=== PATIENT | female | born 1990 | race Caucasian/White ===

== ENCOUNTER 2016-11-29 01:48 | Outpatient (CLI) | payer BC ==
[2016-11-29 02:27] LABS: APPEARANCE,URINE SLIGHTLY-CLOUDY; BILIRUBIN,URINE NEGATIVE (NEGATIVE); GLUCOSE, URINE NEGATIVE (NEGATIVE); KETONES,URINE NEGATIVE (NEGATIVE); LEUKOCYTE ESTERASE,URINE NEGATIVE (NEGATIVE); NITRITE,URINE NEGATIVE (NEGATIVE); PROTEIN,URINE NEGATIVE (NEGATIVE); URINE SPECIFIC GRAVITY 1.006; UROBILINOGEN,URINE NEGATIVE mg/dL (<2.0)
[2016-11-29 03:22] LABS: URINE BARBITURATES SCREEN NEGATIVE; URINE METHADONE SCREEN NEGATIVE; URINE OPIATES LOW NEGATIVE; URINE PHENCYCLIDINE SCREEN NEGATIVE
--- NOTE | 2016-11-29 04:45 | L&D Current Admission ---
Current Admit Datetime Report Generated by CPN: 11/29/2016 04:45 ADMISSION INFORMATION Chief Complaint: Uterine Cramping (11/29/2016 02:11:Edelmira Love, RN)
--- NOTE | 2016-11-29 04:45 | L&D Flow Sheet ---
LD Flowsheet Datetime Report Generated by CPN: 11/29/2016 04:45 Datetime: 11/29/2016 03:17 Vital Signs Stage of : Antepartum (Edelmira Love, RN) Respirations: 18 (Edelmira Love, RN) Temperature (F): 98.0 (Edelmira Love, RN) Temperature (C): 36.7 (QS system process) Uterine Activity Monitor Mode: External; Palpation (Edelmira Love, RN) Frequency (min): none (Edelmira Love, RN) Quality: Mild (Edelmira Love, RN) Resting Tone (Palpate): Relaxed (Edelmira Love, RN) Assessment A Monitor Mode: External US (Edelmira Love, RN) FHR Baseline Rate : 140 (Edelmira Love, RN) FHR Baseline Changes: No Baseline Change (Edelmira Love, RN) Variability: Moderate 6-25 bpm (Edelmira Love, RN) Accelerations: 15X15 (Edelmira Love, RN) Decelerations: None (Edelmira Love, RN) Pain Pain Scale: 2 (Edelmira Love, RN) Pain Presence: Intermittent (Edelmira Love, RN) Pain Type: Cramping (Edelmira Love, RN) Pain Location: Abdomen (Edelmira Love, RN) Pain Relief Measures: Comfort Measures (Edelmira Love, RN) Comfort Measures: Breathing/Relaxation; Family Support (Edelmira Love, RN) Communication Communication: RN at Bedside; RN Reviewed Strip (Edelmira Love, RN) LaborFlag: Antepartum (QS system process) Datetime: 11/29/2016 03:04 Communication Communication: Provider Orders Received (Edelmira Love, RN) Communication Comments: report given to Dr Gibson, re: patient pain, contractions, EGA, OB history, and FHR status. Orders received to D/C home, F/U as scheduled, return PRN (Edelmira Love, RN) Datetime: 11/29/2016 03:00 Vital Signs Stage of : Antepartum (Edelmira Love, RN) Uterine Activity Monitor Mode: External; Palpation (Edelmira Love, RN) Frequency (min): none (Edelmira Love, RN) Resting Tone (Palpate): Relaxed (Edelmira Love, RN) Assessment A Monitor Mode: External US (Edelmira Love, RN) Monitor Interventions for FHR: Ultrasound Adjusted (Edelmira Love, RN) FHR Baseline Rate : 140 (Edelmira Love, RN) FHR Baseline Changes: No Baseline Change (Edelmira Love, RN) Variability: Moderate 6-25 bpm (Edelmira Love, RN) Accelerations: 15X15 (Edelmira Love, RN) Decelerations: None (Edelmira Love, RN) Communication Communication: RN at Bedside; RN Reviewed Strip (Edelmira Love, RN) Datetime: 11/29/2016 02:50 NBP Sys/Maria De Jesus/Mean (mmHg): 108 (QS system process) : 68 (QS system process) : 82 (QS system process) Pulse: 105 (QS system process) LaborFlag: Antepartum (QS system process) Datetime: 11/29/2016 02:45 Vital Signs Stage of : Antepartum (Edelmira Love, RN) Uterine Activity Monitor Mode: External; Palpation (Edelmira Love, RN) Frequency (min): x2 with irritability (Edelmira Love, RN) Quality: Mild (Edelmira Love, RN) Duration (sec): 90-130 (Edelmira Love, RN) Pattern: Normal: <= 5 Contractions in 10 Minutes (Edelmira Love, RN) Resting Tone (Palpate): Relaxed (Edelmira Love, RN) Assessment A Monitor Mode: External US (Edelmira Love, RN) FHR Baseline Rate : 140 (Edelmira Love, RN) FHR Baseline Changes: No Baseline Change (Edelmira Love, RN) Variability: Moderate 6-25 bpm (Edelmira Love, RN) Accelerations: 10X10 (Edelmira Love, RN) Decelerations: None (Edelmira Love, RN) Communication Communication: RN at Bedside; RN Reviewed Strip (Edelmira Love, RN) Datetime: 11/29/2016 02:20 Vital Signs Stage of : Antepartum (Edelmira Love, RN) NBP Sys/Maria De Jesus/Mean (mmHg): 112 (QS system process) : 67 (QS system process) : 82 (QS system process) Pulse: 105 (QS system process) Uterine Activity Monitor Mode: External; Palpation (Edelmira Love, RN) Frequency (min): x1 (Edelmira Love, RN) Quality: Mild (Edelmira Love, RN) Duration (sec): 90 (Edelmira Love, RN) Duration Criteria: Less than Two 120 Second Contractions (Edelmira Love, RN) Pattern: Normal: <= 5 Contractions in 10 Minutes (Edelmira Love, RN) Resting Tone (Palpate): Relaxed (Edelmira Love, RN) Assessment A Monitor Mode: External US (Edelmira Love, RN) FHR Baseline Rate : 145 (Edelmira Love, RN) FHR Baseline Changes: No Baseline Change (Edelmira Love, RN) Variability: Minimal - Undetectable to <=5 bpm (Edelmira Love, RN) Accelerations: None (Edelmira Love, RN) Decelerations: Early (Edelmira Love, RN) Communication Communication: RN at Bedside; RN Reviewed Strip (Edelmira Love, RN) LaborFlag: Antepartum (QS system process) Datetime: 11/29/2016 02:11 Pain Pain Scale: 3 (Edelmira Love, RN) Pain Presence: Intermittent (Edelmira Love, RN) Pain Type: Cramping (Edelmira Love, RN) Pain Location: Abdomen (Edelmira Love, RN) Pain Goal: 1 (Edelmira Love, RN) Pain Relief Measures: Comfort Measures (Edelmira Love, RN) Pain Coping: Talking Through Contractions (Edelmira Love, RN) Vaginal Exam Vaginal Bleeding: None (Edelmira Love, RN) Maternal Assessment Level of Consciousness: Fully Conscious (Edelmira Love, RN) DTR's/Clonus: DTRs 1+; No Clonus (Edelmira Love, RN) Headache: Denies (Edelmira Love, RN) Breath Sounds, Left: Clear and Equal (Edelmira Love, RN) Breath Sounds, Right: Clear and Equal (Edelmira Love, RN) Nausea/Vomiting: Denies (Edelmira Love, RN) RUQ Epigastric Pain: Denies (Edelmira Love, RN) Datetime: 11/29/2016 02:07 Patient Care Patient Position/Activity: Left Tilt; High Fowlers (Edelmira Love, ZUHAIR) Teaching Instructional Method: Verbal; Patient Instructed; Family/Support Person Instructed; Verbalized Understanding (Edelmira Love RN) Plan of Care: Plan of Care Discussed (Edelmira Love RN) Unit Routine: [place] to Room; Call Carrillo; Bed; Unit Personnel (Edelmira Love RN)
--- NOTE | 2016-11-29 04:45 | L&D General Admission ---
General Admit Datetime Report Generated by CPN: 11/29/2016 04:45 INFORMATION Patient Age: 26 (10/30/2016 09:43:QS system process) EDC: 01/12/2017 00:00 (11/29/2016 01:52:Sara Collins RN) : 1 (11/29/2016 01:52:Edelmira Love RN) Para: 0 (11/29/2016 03:10:Edelmira Love RN) Para: 0 (11/29/2016 01:52:Edelmira Love RN) Term: 0 (11/29/2016 01:52:Edelmira Love RN) : 0 (11/29/2016 01:52:Edelmira Love RN) Spontaneous Abortions: 0 (11/29/2016 01:52:Edelmira Love RN) Induced Abortions: 0 (11/29/2016 01:52:Edelmira Love RN) Livin (11/29/2016 01:52:Edelmira Love RN) Cesareans: 0 (11/29/2016 01:52:Edelmira Love RN) VBACs: 0 (11/29/2016 01:52:Edelmira Love RN) Ectopic: 0 (11/29/2016 01:52:Edelmira Love RN) Multiple Births: 0 (11/29/2016 01:52:Edelmira Love RN) Baby, Number in Womb: 1 (11/29/2016 03:10:Edelmira Love RN) Baby, Number in Womb: 1 (11/29/2016 01:52:Edelmira Love RN) CARE Primary Director Of Web Marketing: [facility] (11/29/2016 01:52:Edelmira Love RN) Adequate Care: Yes (11/29/2016 01:52:Edelmira Love RN) Height (in): 65 (11/29/2016 01:59:QS system process) ALLERGIES Medication Allergy: No (11/29/2016 01:52:Edelmira Love RN) Medication Allergies: No Known Allergies (11/29/2016) (11/29/2016 01:58:QS system process) Medication Allergies: No Known Allergies (03/03/2016) (10/30/2016 09:43:QS system process) Latex Allergy: No Latex Allergies (11/29/2016 01:52:Edelmira Love RN) Food Allergies: none (11/29/2016 01:52:Edelmira Love RN) Environmental Allergies: none (11/29/2016 01:52:Edelmira Love RN) COMMUNICATION Primary Language: Hungarian (11/29/2016 01:52:Edelmira Love RN) Medical Tx Preferred Language: Hungarian (11/29/2016 01:52:Edelmira Love RN) DEMOGRAPHICS Address: [address] [place] [id number] (10/30/2016 09:43:QS system process) Zipcode: [id number] (10/30/2016 09:43:QS system process) Home (10/30/2016 09:43:QS system process) N: [id number] (10/30/2016 09:43:QS system process) Next of Kin Name: MARVEL HINDS (10/30/2016 09:43:QS system process) Next of Kin (10/30/2016 09:43:QS system process) Next of Kin Relationship: MO (10/30/2016 09:43:QS system process) Date of : 1990 (10/30/2016 09:43:QS system process) Marital Status: (10/30/2016 09:43:QS system process) Sex: Female (10/30/2016 09:43:QS system process) Race: (10/30/2016 09:43:QS system process) Ethnicity: Non- or (10/30/2016 09:43:QS system process) Latter-Day: Other (10/30/2016 09:43:QS system process) DRUG AND ALCOHOL USE Alcohol: No (11/29/2016 01:52:Edelmira Love RN) Cigarettes: Former Smoker. [id number] (11/29/2016 01:52:Edelmira Love RN) Marijuana: No (11/29/2016 01:52:Edelmira Love RN) Cocaine: No (11/29/2016 01:52:Edelmira Love RN) Other Illicit Drugs: No (11/29/2016 01:52:Edelmira Love RN) VACCINE HISTORY Influenza Vaccine: Yes (11/29/2016 01:52:Edelmira Love RN) Pneumococcal Vaccine: No (11/29/2016 01:52:Edelmira Love RN) Tetanus Vaccine: Yes (11/29/2016 01:52:Edelmira Love RN) Tdap Vaccine: Yes (11/29/2016 01:52:Edelmira Love RN) Hepatitis B Vaccine: Yes (11/29/2016 01:52:Edelmira Love RN) Feeding Preference: Breast (11/29/2016 01:52:Edelmira Love RN) Benefit of Breast Feed Discussed: Yes (11/29/2016 01:52:Edelmira Love RN) Circumcision: N/A (11/29/2016 01:52:Edelmira Love RN) Tubal Ligation: No (11/29/2016 01:52:Edelmira Love RN) Tubal Authorization Signed: N/A (11/29/2016 01:52:Edelmira Love RN) Consent: N/A (11/29/2016 01:52:Edelmira Love RN) Consent Signed: N/A (11/29/2016 01:52:Edelmira Love RN) Pain Management Plans: Epidural (11/29/2016 01:52:Edelmira Love RN) Other Labor and Delivery Plans: skin to skin (11/29/2016 01:52:Edelmira Love RN) Support Person: Xu (11/29/2016 01:52:Edelmira Love RN) Support Person Relationship: (11/29/2016 01:52:Edelmira Love RN) Cultural/Spritual Practice: [facility] (11/29/2016 01:52:Edelmira Love RN) Spir/Cult Dietary Needs: No (11/29/2016 01:52:Edelmira Love RN) LIVING SITUATION/DISCHARGE PLAN Living Arrangements: House (11/29/2016 01:52:Edelmira Love RN) Adequate Access to:: Electric; Heat; Refrigeration; Plumbing/Running water; Phone; Transportation (11/29/2016 01:52:Edelmira Love RN) WIC Program: [facility] (11/29/2016 01:52:Edelmira Love RN) Discharge Warhead Maintenance Specialist Person: Xu (11/29/2016 01:52:Edelmira Love RN) Person to Help after Discharge: Xu (11/29/2016 01:52:Edelmira Love RN) Currently Using Commun Resources: [facility] (11/29/2016 01:52:Edelmira Love RN) Outside Agency/Machine Setter: [facility] (11/29/2016 01:52:Edelmira Love RN) Car Seat for Discharge: [facility] (11/29/2016 01:52:Edelmira Love RN) Adoption Requested: [facility] (11/29/2016 01:52:Edelmira Love RN) Pt Contact w/ Post : N/A (11/29/2016 01:52:Edelmira Love RN) LABS Blood Type: O Positive (11/29/2016 01:52:Edelmira Love RN) Antibody Screen: positive (11/29/2016 01:52:Edelmira Love RN) Gonorrhea: Negative (11/29/2016 01:52:Edelmira Love RN) Chlamydia: Negative (11/29/2016 01:52:Edelmira Love RN) RPR/VDRL: Nonreactive (11/29/2016 01:52:Edelmira Love RN) HIV Exposure Test: Negative (11/29/2016 01:52:Edelmira Love RN) HIV Results: negative (11/29/2016 01:52:Edelmira Love RN) Hepatitis B: Negative (11/29/2016 01:52:Edelmira Love RN) Rubella: Immune (11/29/2016 01:52:Edelmira Love RN) OB/PREVIOUS HISTORY Current Procedures: Ultrasound; NST (11/29/2016 01:52:Edelmira Love RN) History of Previous : No (11/29/2016 01:52:Edelmira Love RN) History of Gestational Diabetes: No (11/29/2016 01:52:Edelmira Love RN) History of PIH: No (11/29/2016 01:52:Edelmira Love RN) History of Incompetent Cervix: No (11/29/2016 01:52:Edelmira Love RN) History of Placenta Previa/Abrup: No (11/29/2016 01:52:Edelmira Love RN) History of Macrosomia: No (11/29/2016 01:52:Edelmira Love RN) History of IUGR: No (11/29/2016 01:52:Edelmira Love RN) History of Hemorrhage: No (11/29/2016 01:52:Edelmira Love RN) History of Loss/Stillborn: No (11/29/2016 01:52:Edelmira Love RN) History of : No (11/29/2016 01:52:Edelmira Love RN) History of D (Rh) Sensitization: No (11/29/2016 01:52:Edelmira Love RN) History Recurrent Loss/Stillborn: No (11/29/2016 01:52:Edelmira Love RN) History Depression/PP Depression: No (11/29/2016 01:52:Edelmira Love RN) History of Uterine Anomaly/FANNY: No (11/29/2016 01:52:Edelmira Love RN) History of Infertility: No (11/29/2016 01:52:Edelmira Love RN) History of ART Treatment: No (11/29/2016 01:52:Edelmira Love RN) History of FANNY: No (11/29/2016 01:52:Edelmira Love RN) Comments Obstetrical History: G1: Current (11/29/2016 01:52:Edelmira Love RN) MEDICAL HISTORY Med Hx Diabetes: No (11/29/2016 01:52:Edelmira Love RN) Med Hx Hypertension: No (11/29/2016 01:52:Edelmira Love RN) Med Hx Heart Disease: No (11/29/2016 01:52:Edelmira Love RN) Med Hx Autoimmune Disorder: No (11/29/2016 01:52:Edelmira Love RN) Med Hx Kidney Disease/UTI: No (11/29/2016 01:52:Edelmira Love RN) Med Hx Neurologic/Epilepsy: No (11/29/2016 01:52:Edelmira Love RN) Med Hx Psychiatric Disorders: No (11/29/2016 01:52:Edelmira Love RN) Med Hx Hepatitis/Liver Disease: No (11/29/2016 01:52:Edelmira Love RN) Med Hx Varicosities/Phlebitis: No (11/29/2016 01:52:Edelmira Love RN) Med Hx Thyroid Dysfunction: No (11/29/2016 01:52:Edelmira Love RN) Med Hx Trauma/Violence: No (11/29/2016 01:52:Edelmira Love RN) Med Hx Blood Transfusion: No (11/29/2016 01:52:Edelmira Love RN) Med Hx Pulmonary (Asthma,TB): No (11/29/2016 01:52:Edelmira Love RN) Med Hx Breast: No (11/29/2016 01:52:Edelmira Love RN) Med Hx SPORTS PHYSICAL THERAPIST Surgery: No (11/29/2016 01:52:Edelmira Love RN) Med Hx Hospitalization/Surgery: Yes (11/29/2016 01:52:Edelmira Love RN) Med Hx Anesthetic Complications: No (11/29/2016 01:52:Edelmira Love RN) Med Hx Abnormal Pap Smear: No (11/29/2016 01:52:Edelmira Love RN) Other Medical Diseases: No (11/29/2016 01:52:Edelmira Love RN) Med Hx Significant Family Hx: No (11/29/2016 01:52:Edelmira Love RN) INFECTIOUS HISTORY Inf Hx Gonorrhea: No (11/29/2016 01:52:Edelmira Love RN) Inf Hx Chlamydia: No (11/29/2016 01:52:Edelmira Love RN) Inf Hx Syphilis: No (11/29/2016 01:52:Edelmira Love RN) Inf Hx HIV/AIDS: No (11/29/2016 01:52:Edelmira Love RN) Inf Hx Human Papilloma Virus: No (11/29/2016 01:52:Edelmira Love RN) Inf Hx Pt/Partner Genital Herpes: No (11/29/2016 01:52:Edelmira Love RN) Inf Hx Tuberculosis/Exposure: No (11/29/2016 01:52:Edelmira Love RN) Inf Hx Hepatitis B,C: No (11/29/2016 01:52:Edelmira Love RN) Inf Hx Rash or Viral Illness: No (11/29/2016 01:52:Edelmira Love RN) GENETIC HISTORY Gen Hx Age >=35 at TONI: No (11/29/2016 01:52:Edelmira Love RN) Gen Hx Thalassemia: No (11/29/2016 01:52:Edelmira Love RN) Gen Hx Congenital Heart Defect: No (11/29/2016 01:52:Edelmira Love RN) Gen Hx Neural Tube Defect: No (11/29/2016 01:52:Edelmira Love RN) Gen Hx Down's Syndrome: No (11/29/2016 01:52:Edelmira Love RN) Gen Hx Saul-Sachs: No (11/29/2016 01:52:Edelmira Love RN) Gen Hx Jesus: No (11/29/2016 01:52:Edelmira Love RN) Gen Hx Familial Dysautonomia: No (11/29/2016 01:52:Edelmira Love RN) Gen Hx Sickle Cell Disease/Trait: No (11/29/2016 01:52:Edelmira Love RN) Gen Hx Hemophilia/Blood Disorder: No (11/29/2016 01:52:Edelmira Love RN) Gen Hx Muscular Dystrophy: No (11/29/2016 01:52:Edelmira Love RN) Gen Hx Cystic Fibrosis: No (11/29/2016 01:52:Edelmira Love RN) Gen Hx Huntingtons Chorea: No (11/29/2016 01:52:Edelmira Love RN) Gen Hx Mental Retardation/Autism: No (11/29/2016 01:52:Edelmira Love RN) Gen Hx Tested for Fragile X: No (11/29/2016 01:52:Edelmira Love RN) Gen Hx Other Inher/Chromosomal: No (11/29/2016 01:52:Edelmira Love RN) Gen Hx Maternal Metabolic DO: No (11/29/2016 01:52:Edelmira Love RN) Gen Hx Pt Father or FOB Defect: No (11/29/2016 01:52:Edelmira Love RN) Gen Hx Other Genetic History: No (11/29/2016 01:52:Edelmira Love RN) Gen Hx Drugs/Meds since LMP: No (11/29/2016 01:52:Edelmira Love RN) Gen Hx Medications: tylenol PRN (11/29/2016 01:52:Edelmira Love RN)
--- NOTE | 2016-11-29 04:45 | Antepartum Discharge Summary ---
Antepartum DC Datetime Report Generated by CPN: 11/29/2016 04:45 DIET/ACTIVITY/RESTRICTIONS Diet: Regular (11/29/2016 03:10:Edelmira Love, RN) Activity: Normal Activity (11/29/2016 03:10:Edelmira Love, RN) TEACHING/INSTRUCTIONS/REFERRALS Instructions Given To: Patient and Spouse (11/29/2016 03:10:Edelmira Love, RN) Instructions Understood: Patient Verbalized Understanding; Support Person Verbalized Understanding (11/29/2016 03:10:Edelmira Love RN) Referrals: None (11/29/2016 03:10:Edelmira Love RN) Educational Materials- Other: kick counts and labor (11/29/2016 03:10:Edelmira Love RN) DISCHARGE INFORMATION Discharged AMA: No (11/29/2016 03:10:Edelmira Love RN) Discharged To: Home (11/29/2016 03:10:Edelmira Love RN) Discharge Provider Name: Dr Gibson (11/29/2016 03:10:Edelmira Love RN) Accompanied By: Spouse (11/29/2016 03:10:Edelmira Love RN) Discharge Method: Ambulatory (11/29/2016 03:10:Edelmira Love RN) Condition: Stable (11/29/2016 03:10:Edelmira Love RN) FOLLOW UP INFORMATION Follow Up With: [facility] (11/29/2016 03:10:Edelmira Love RN) Follow Up On: As Scheduled (11/29/2016 03:10:Edelmira Love RN) Follow Up Phone Number: [facility] - (11/29/2016 03:10:Edelmira Love RN) Comments: Patient advised to return to bleeding like a period, leaking of fluid, contractions, and/or decreased movement. Patient is without questions at this time. (11/29/2016 03:10:Edelmira Love RN)
--- NOTE | 2016-11-29 04:45 | L&D Discharge Summary ---
OB Discharge Summary Datetime Report Generated by CPN: 11/29/2016 04:45 DISCHARGE DIAGNOSIS Diagnosis/Symptoms: False Labor Diagnoses/Symptoms Other: reactive nst Number of Babies in Womb: 1 Parity: 0 DIET/ACTIVITY/RESTRICTIONS Diet: Regular Activity: Normal Activity TEACHING/INSTRUCTIONS/REFERRALS Instructions Given To: Patient and Spouse Instructions Understood: Patient Verbalized Understanding; Support Person Verbalized Understanding Referrals: None Educational Materials- Other: kick counts and labor DISCHARGE INFORMATION Discharged AMA: No Discharged To: Home Discharge Provider Name: Dr Gibson Accompanied By: Spouse Discharge Method: Ambulatory Condition: Stable FOLLOW UP INFORMATION Follow Up With: [facility] Follow Up On: As Scheduled Follow Up Phone Number: [facility] - Comments: Patient advised to return to bleeding like a period, leaking of fluid, contractions, and/or decreased movement. Patient is without questions at this time.
--- NOTE | 2016-11-29 04:45 | L&D Admission Assessment ---
LD ADM ASMT Datetime Report Generated by CPN: 11/29/2016 04:45 PATIENT ASSESSMENT Assessment Type: Triage (11/29/2016 02:11:Edelmira Love, RN) WEIGHT Weight (lb): 189 (11/29/2016 01:59:QS system process) Weight (kg): 85.9 (11/29/2016 01:59:QS system process) PAIN Pain Scale: 2 (11/29/2016 03:17:Edelmira Love, RN) Pain Scale: 3 (11/29/2016 02:11:Edelmira Love, RN) Pain Presence: Intermittent (11/29/2016 03:17:Edelmira Love, RN) Pain Presence: Intermittent (11/29/2016 02:11:Edelmira Love, RN) Pain Type: Cramping (11/29/2016 03:17:Edelmira Love, RN) Pain Type: Cramping (11/29/2016 02:11:Edelmira Love, RN) Pain Location: Abdomen (11/29/2016 03:17:Edelmira Love, RN) Pain Location: Abdomen (11/29/2016 02:11:Edelmira Love, RN) Pain Goal: 1 (11/29/2016 02:11:Edelmira Love, RN) Pain Related to Contraction: Unsure (11/29/2016 02:11:Edelmira Love, RN) CONTRACTIONS Frequency (min): none (11/29/2016 03:17:Edelmira Love, RN) Frequency (min): none (11/29/2016 03:00:Edelmira Love, RN) Frequency (min): x2 with irritability (11/29/2016 02:45:Edelmira Love, RN) Frequency (min): x1 (11/29/2016 02:20:Edelmira Love, RN) Duration (sec): 90-130 (11/29/2016 02:45:Edelmira Love, RN) Duration (sec): 90 (11/29/2016 02:20:Edelmira Love, RN) Quality: Mild (11/29/2016 03:17:Edelmira Love, RN) Quality: Mild (11/29/2016 02:45:Edelmira Love, RN) Quality: Mild (11/29/2016 02:20:Edelmira Love, RN) Pattern: Normal: <= 5 Contractions in 10 Minutes (11/29/2016 02:45:Edelmira Love, RN) Pattern: Normal: <= 5 Contractions in 10 Minutes (11/29/2016 02:20:Edelmira Love, RN) Resting Tone [place]: Relaxed (11/29/2016 03:17:Edelmira Love, RN) Resting Tone [place]: Relaxed (11/29/2016 03:00:Edelmira Love, RN) Resting Tone [place]: Relaxed (11/29/2016 02:45:Edelmira Love, RN) Resting Tone [place]: Relaxed (11/29/2016 02:20:Edelmira Love, RN) NEURO Level of Consciousness: Fully Conscious (11/29/2016 02:11:Edelmira Love, RN) DTR's/Clonus: DTRs 1+; No Clonus (11/29/2016 02:11:Edelmira Love RN) Headache: Denies (11/29/2016 02:11:Edelmira Love RN) Dizziness: No (11/29/2016 02:11:Edelmira Love RN) Blurred Vision: No (11/29/2016 02:11:Edelmira Love RN) Extremity Numbness/Tingling : None (11/29/2016 02:11:Edelmira Love RN) Extremity Movement: Full Range of Motion (11/29/2016 02:11:Edelmira Love RN) CARDIOVASCULAR Heart Rhythm: Regular (11/29/2016 02:11:Edelmira Love RN) Nailbeds: [place] (11/29/2016 02:11:Edelmira Love RN) Capillary Refill: Less than 3 Seconds (11/29/2016 02:11:Edelmira Love RN) Lower Extremities Edema: None (11/29/2016 02:11:Edelmira Love RN) Lower Extremities Edema Degree: None (11/29/2016 02:11:Edelmira Love RN) Upper Extremities Edema: None (11/29/2016 02:11:Edelmira Love RN) Upper Extremities Edema Degree: None (11/29/2016 02:11:Edelmira Love RN) Facial Edema: None (11/29/2016 02:11:Edelmira Love RN) Arely's Sign Left Leg: Negative (11/29/2016 02:11:Edelmira Love RN) Arely's Sign Right Leg: Negative (11/29/2016 02:11:Edelmira Love, RN) DVT RISK ASSESSMENT DVT Risk Age: Age less than 41 years (11/29/2016 02:11:Edelmira Love RN) DVT Risk BMI: BMI<31 (11/29/2016 02:11:Edelmira Love RN) DVT Risk Surgery: None Applicable (11/29/2016 02:11:Edelmira Love RN) DVT Risk Other: Women Only- or (<1 month) (11/29/2016 02:11:Edelmira Love RN) DVT Risk Total: 1 (11/29/2016 02:11:QS system process) DVT Risk Text: Low Risk (<10%) No specific measures, early ambulation (11/29/2016 02:11:QS system process) RESPIRATORY Respiratory Effort: Unlabored; Regular Rhythm; Equal Expansion (11/29/2016 02:11:Edelmira Love, RN) Breath Sounds, Left: Clear and Equal (11/29/2016 02:11:Edelmira Love, RN) Breath Sounds, Right: Clear and Equal (11/29/2016 02:11:Edelmira Love, RN) Cough Productivity: None (11/29/2016 02:11:Edelmira Love, RN) GASTROINTESTINAL Nausea/Vomiting: Denies (11/29/2016 02:11:Edelmira Love, RN) Bowel Sounds: Normoactive; All Quadrants (11/29/2016 02:11:Edelmira Love, RN) RUQ Epigastric Pain: Denies (11/29/2016 02:11:Edelmira Love, RN) Bowel Patterns: Soft, Formed Stool (11/29/2016 02:11:Edelmira Love, RN) Hemorrhoids: None (11/29/2016 02:11:Edelmira Love, RN) Diet Type: Regular diet (11/29/2016 02:11:Edelmira Love, RN) Last Meal: 11/28/2016 18:30 (11/29/2016 02:11:Edelmira Love, RN) GENITOURINARY Bladder: Nondistended (11/29/2016 02:11:Edelmira Love, RN) Frequency of Urination: No (11/29/2016 02:11:Edelmira Love, RN) Urination Burning: No (11/29/2016 02:11:Edelmiradara Love RN) CVA Tenderness: No (11/29/2016 02:11:Edelmira Love, RN) INTEGUMENTARY Skin Color: Normal for Race (11/29/2016 02:11:Edelmira Love RN) Skin Temperature: Warm (11/29/2016 02:11:Edelmira Love RN) Skin Moisture: Dry (11/29/2016 02:11:Edelmira Love RN) Surgical Scars: none (11/29/2016 02:11:Edelmira Love RN) Body Piercings/Tattoos: piercings- ears tattoos- x4 (11/29/2016 02:11:Edelmira Love RN) CIARAN SKIN ASSESSMENT Ciaran Scale Sensory Perception: No Impairment- Responds to verbal commands. Has no sensory deficit which would limit ability to feel or voice pain or discomfort (11/29/2016 02:11:Edelmira Love, RN) Ciaran Scale Moisture: Rarely Moist- Skin is usually dry. Linen only requires changing at routine intervals (11/29/2016 02:11:Edelmira Love RN) Ciaran Scale Activity: Walks Frequently- Walks outside the room at least twice a day and inside room at least every 2 hours during the day. (11/29/2016 02:11:Edelmira Love RN) Ciaran Scale Mobility: No Limitations- Makes major and frequent changes in position without assistance (11/29/2016 02:11:Edelmira Love RN) Ciaran Scale Nutrition: Excellent- Eats most of every meal. Never refuses a meal. Usually eats a total of 4 or more servings of meat and dairy products. Occasionally eats between meals. Does not require supplementation (11/29/2016 02:11:Edelmira Love RN) Ciaran Scale Friction and Shear: No Apparent Problem- Moves in bed and in chair independently and has sufficient muscle strength to lift up completely during move. Maintains good position in bed or chair at all times (11/29/2016 02:11:Edelmira Love RN) Ciaran Scale Total: 23 (11/29/2016 02:11:QS system process) Ciaran Scale Risk: No Risk of Pressure Ulcer Noted at this Time (11/29/2016 02:11:QS system process) SUPPORT Family Support: Significant Other supportive, at bedside frequently (11/29/2016 02:11:Edelmira Love RN) Emotional State: Calm/Relaxed (11/29/2016 02:11:Edelmira Love RN) SAFETY Call Carrillo Within Reach: Yes (11/29/2016 02:11:Edelmira Love RN) Side Rails Up: Yes (11/29/2016 02:11:Edelmira Love RN) Bed Wheels Locked: Yes (11/29/2016 02:11:Edelmira Love RN) Arm Bands Present: Yes (11/29/2016 02:11:Edelmira Love RN) Isolation: [place] (11/29/2016 02:11:Edelmira Love RN) FALL SCREEN Fall Risk History of Falling: (0) No (11/29/2016 02:11:Edelmira Love RN) Fall Risk Secondary Diagnosis: (0) No (11/29/2016 02:11:Edelmira Love RN) Fall Risk Ambulatory Aid: (0) None/Bedrest/Wheelchair/Nurse Assist (11/29/2016 02:11:Edelmira Love RN) Fall Risk IV Therapy: (0) No (11/29/2016 02:11:Edelmira Love RN) Fall Risk Gait: (0) Normal/Bedrest/Immobile (11/29/2016 02:11:Edelmira Love RN) Fall Risk Mental Status: (0) Oriented to Own Ability (11/29/2016 02:11:Edelmira Love RN) Fall Risk Score: 0 (11/29/2016 02:11:QS system process) Fall Risk Score Definition: No Risk: No action required (11/29/2016 02:11:QS system process) RECENT TRAVEL/INFECTIOUS DISEASE Recent Exp Communicable Disease: No (11/29/2016 02:11:Edelmira Love RN) Cough or Fever: No (11/29/2016 02:11:Edelmira Love RN) Foreign Travel Past 10 Days: No (11/29/2016 02:11:Edelmira Love RN) Open Wounds or Sores: No (11/29/2016 02:11:Edelmira Love RN) Prior Antibiotic Resistance Tx: No (11/29/2016 02:11:Edelmira Love RN) Cultures Obtained: Not Applicable (11/29/2016 02:11:Edelmira Love RN) Isolation Initiated: No (11/29/2016 02:11:Edelmira Love RN) Pt/Family Education: Handwashing Hygiene (11/29/2016 02:11:Edelmira Love RN) BABY A FHR Baseline Rate (bpm) Baby A: 140 (11/29/2016 03:17:Edelmira Love RN) FHR Baseline Rate (bpm) Baby A: 140 (11/29/2016 03:00:Edelmira Love RN) FHR Baseline Rate (bpm) Baby A: 140 (11/29/2016 02:45:Edelmira Love, RN) FHR Baseline Rate (bpm) Baby A: 145 (11/29/2016 02:20:Edelmira Love, RN) Variability Baby A: Moderate 6-25 bpm (11/29/2016 03:17:Edelmira Love, RN) Variability Baby A: Moderate 6-25 bpm (11/29/2016 03:00:Edelmira Love, RN) Variability Baby A: Moderate 6-25 bpm (11/29/2016 02:45:Edelmira Love, RN) Variability Baby A: Minimal - Undetectable to <=5 bpm (11/29/2016 02:20:Edelmira Love, RN) Accelerations Baby A: 15X15 (11/29/2016 03:17:Edelmira Love, RN) Accelerations Baby A: 15X15 (11/29/2016 03:00:Edelmira Love, RN) Accelerations Baby A: 10X10 (11/29/2016 02:45:Edelmira Love, RN) Accelerations Baby A: None (11/29/2016 02:20:Edelmira Love, RN) Decelerations Baby A: None (11/29/2016 03:17:Edelmira Love, RN) Decelerations Baby A: None (11/29/2016 03:00:Edelmira Love, RN) Decelerations Baby A: None (11/29/2016 02:45:Edelmira Love, RN) Decelerations Baby A: Early (11/29/2016 02:20:Edelmira LoveZUHAIR salazar)
== END 2016-11-29 03:24 | disposition home or self-care (01) ==
LOC: LC 01:48
PROVIDERS: ATTEND Obstetrics & Gynecology
PROC: 4A1HXCZ Monitoring of Products of Conception, Cardiac Rate, External Approach (ICD-10-PCS; principal; 2016-11-29)
DX: O47.03 False labor before 37 completed weeks of gestation, third trimester (principal); Z3A.33 33 weeks gestation of pregnancy
CPT/HCPCS: 59025; 80307; 81005

== ENCOUNTER 2016-12-18 15:20 | Outpatient (CLI) | payer BC ==
--- NOTE | 2016-12-18 16:00 | L&D Flow Sheet ---
LD Flowsheet Datetime Report Generated by CPN: 12/18/2016 16:00 Datetime: 12/18/2016 15:39 Pain Pain Scale: 4 (Candi Vitrano, RN) Pain Presence: Intermittent (Candi Vitrano, RN) Pain Type: Sharp; Stabbing (Candi Vitrano, RN) Pain Location: Abdomen (Annotations: L side) (Candi Antoine, RN) Pain Coping: Pt calm and relaxed, in no apparent distress (Candi Marcano, RN) Vaginal Exam Membrane Status: Intact (Candi Vitrano, RN) Vaginal Bleeding: None (Candi Vitrano, RN) Maternal Assessment Level of Consciousness: Fully Conscious (Candi Vitrano, RN) DTR's/Clonus: DTRs 2+; No Clonus (Candi Vitrano, RN) Headache: Denies (Candi Vitrano, RN) Breath Sounds, Left: Clear and Equal (Candi Vitrano, RN) Breath Sounds, Right: Clear and Equal (Candi Vitrano, RN) Nausea/Vomiting: Present (Annotations: Nausea, no vomiting) (Candi Vitrano, RN) RUQ Epigastric Pain: Denies (Candi Vitrano, RN) Communication LaborFlag: Antepartum (QS system process) Datetime: 12/18/2016 15:38 Vital Signs NBP Sys/[place]/Mean (mmHg): 109 (QS system process) : 71 (QS system process) : 85 (QS system process) Pulse: 116 (QS system process) Communication LaborFlag: Antepartum (QS system process) Datetime: 12/18/2016 15:36 Patient Care Patient Position/Activity: Right Tilt; Semi-Fowlers (Candi Antoine, RN) I/O Interventions: Clear Liquids Given (Candi Vitrano, RN) Teaching Instructional Method: Verbal; Patient Instructed; Family/Support Person Instructed; Verbalized Understanding (Candi Schultz RN) Plan of Care: Plan of Care Discussed (Candi Vitrano, RN) Unit Routine: [place] to Room; Call Carrillo; Bed; Unit Personnel; Flu/Illness Precautions; Monitoring; Safety/Fall Risk Prevention; Bathroom Privileges (Candi Schultz RN)
[2016-12-18 16:13] LABS: APPEARANCE,URINE SLIGHTLY-CLOUDY; BILIRUBIN,URINE NEGATIVE (NEGATIVE); GLUCOSE, URINE NEGATIVE (NEGATIVE); KETONES,URINE NEGATIVE (NEGATIVE); LEUKOCYTE ESTERASE,URINE NEGATIVE (NEGATIVE); NITRITE,URINE NEGATIVE (NEGATIVE); PROTEIN,URINE NEGATIVE (NEGATIVE); URINE SPECIFIC GRAVITY 1.005; UROBILINOGEN,URINE NEGATIVE mg/dL (<2.0)
[2016-12-18 16:24] LABS: URINE BARBITURATES SCREEN NEGATIVE; URINE METHADONE SCREEN NEGATIVE; URINE OPIATES LOW NEGATIVE; URINE PHENCYCLIDINE SCREEN NEGATIVE
--- NOTE | 2016-12-18 16:34 | Non Stress Test Report ---
Non Stress Test Datetime Report Generated by CPN: 12/18/2016 16:33 DEMOGRAPHIC Test Number: 2 EGA NST: 36.3 EGA NST: 33.5 INDICATION Indication for Study: Ordered by Provider Indication for Study: Ordered by Provider MONITORING Monitor Explained: Monitor Explained; Test Explained; Patient Verbalized Understanding Time on Monitor: 12/18/2016 15:37 Time on Monitor: 11/29/2016 02:06 Time off Monitor: 12/18/2016 16:22 Time off Monitor: 11/29/2016 03:18 NST Duration: 45 NST Duration: 72 NST INTERVENTIONS NST Interventions: PO Hydration NST Interventions: PO Hydration Physician Notified NST: Lenora Hernandez CNM Physician Notified NST: Gibson BABY A: [id number] BABY A Movement : Present Movement : Present (Annotations: Data stored by [facility] on behalf of user) Contraction Frequency : Occasional Contraction Frequency : Irregular FHR Baseline : 130 FHR Baseline : 140 Accelerations : 15X15 Accelerations : 15X15 (Annotations: Data stored by N on behalf of user) Decelerations : None Decelerations : Early Variability : Moderate 6-25bpm Variability : Moderate 6-25bpm NST Review: Meets Criteria for Reactive NST NST Review: Meets Criteria for Reactive NST NST Review and Verified By : Maxi WORKMAN NST Results: Reactive NST Results: Reactive NST REPORT Report Trigger: Send Report
== END 2016-12-18 16:31 | disposition home or self-care (01) ==
LOC: LC 15:20
PROVIDERS: ATTEND Obstetrics & Gynecology
PROC: 4A1HXCZ Monitoring of Products of Conception, Cardiac Rate, External Approach (ICD-10-PCS; principal; 2016-12-18)
DX: O26.893 Other specified pregnancy related conditions, third trimester (principal); R10.2 Pelvic and perineal pain; Z3A.36 36 weeks gestation of pregnancy
CPT/HCPCS: 59025; 80307; 81001

== ENCOUNTER 2017-01-05 18:19 | Inpatient (IN) | payer BC ==
[2017-01-05] MEDS ORDERED: OXYTOCIN/NORMAL SALINE 20 UNIT/1,000 ML RTUINJ IV PRN (18:39)
[2017-01-05] MEDS ORDERED: RINGERS SOLUTION,LACTATED 300 ML IV ONE (18:39)
[2017-01-05 18:58] LABS: APPEARANCE,URINE CLEAR; BILIRUBIN,URINE NEGATIVE (NEGATIVE); GLUCOSE, URINE NEGATIVE (NEGATIVE); KETONES,URINE 20 mg/dL (NEGATIVE); LEUKOCYTE ESTERASE,URINE NEGATIVE (NEGATIVE); NITRITE,URINE NEGATIVE (NEGATIVE); PROTEIN,URINE NEGATIVE (NEGATIVE); URINE SPECIFIC GRAVITY 1.008; UROBILINOGEN,URINE NEGATIVE mg/dL (<2.0)
[2017-01-05 19:13] LABS: ABSOLUTE EOSINOPHILS # (AUTO) 0.1 10^3/uL (0.0-0.6); ABSOLUTE LYMPHOCYTES (AUTO) 1.7 10^3/uL (0.5-4.7); ABSOLUTE MONOCYTES (AUTO) 0.8 10^3/uL (0.1-1.4); ABSOLUTE NEUT (AUTO) 10.4 10^3/uL (1.7-8.2); BASOPHILS % (AUTO) 0.3 % (0-2); EOSINOPHILS % (AUTO) 0.7 % (0-6); HEMATOCRIT 33.9 % (36.0-47.0); HEMOGLOBIN 11.4 g/dL (12.0-15.5); HGB HCT DIFFERENCE 0.3; LYMPHOCYTES % (AUTO) 13.3 % (13-45); MEAN CORPUSCULAR HEMOGLOBIN 29.8 pg (27.0-33.4); MEAN CORPUSCULAR HGB CONC 33.7 g/dL (32.0-36.0); MEAN CORPUSCULAR VOLUME 88 fl (80-97); RED BLOOD COUNT 3.84 10^6/uL (3.72-5.28); RED CELL DISTRIBUTION WIDTH 13.8 % (11.5-14.0); SEGMENTED NEUTROPHILS % (AUTO) 79.7 % (42-78)
[2017-01-05 19:25] LABS: URINE BARBITURATES SCREEN NEGATIVE; URINE METHADONE SCREEN NEGATIVE; URINE OPIATES LOW NEGATIVE; URINE PHENCYCLIDINE SCREEN NEGATIVE
[2017-01-05] MEDS ORDERED: DINOPROSTONE 10 MG VAGINAL INSERT.SR ONE (19:49)
--- NOTE | 2017-01-05 20:00 | L&D Flow Sheet ---
LD Flowsheet Datetime Report Generated by CPN: 01/05/2017 20:00 Datetime: 01/05/2017 19:56 Vital Signs NBP Sys/[place] De Jesus/Mean (mmHg): 108 (QS system process) : 72 (QS system process) : 85 (QS system process) Pulse: 118 (QS system process) LaborFlag: Antepartum (QS system process) Datetime: 01/05/2017 19:15 Maternal Assessment Level of Consciousness: Fully Conscious (Rucsandra Travis, RN) DTR's/Clonus: DTRs 2+; No Clonus (Rucsandra Travis, RN) Headache: Denies (Rucsandra Travis, RN) Breath Sounds, Left: Clear and Equal (Rucsandra Travis, RN) Breath Sounds, Right: Clear and Equal (Rucsandra Travis, RN) Nausea/Vomiting: Denies (Rucsandra Travis, RN) RUQ Epigastric Pain: Denies (Rucsandra Travis, RN) Datetime: 01/05/2017 19:10 Maternal Comments: Pt reviewing and signing consent forms. (Rucsandra Robles, RN) Communication Communication: Report Given to @ Ada Travis,RN (Francisco Mcginnisford, RN) Communication Comments: Care relinquished (Francisco Serna, RN) Datetime: 01/05/2017 19:02 Vital Signs NBP Sys/[place]/Mean (mmHg): 114 (QS system process) : 61 (QS system process) : 82 (QS system process) Pulse: 136 (QS system process) LaborFlag: Antepartum (QS system process) Datetime: 01/05/2017 19:01 Patient Care IV/Blood Work: IV Started (Elyssa Hawley, RN) Datetime: 01/05/2017 19:00 Pain Pain Scale: 0 (Francisco Serna, RN) Pain Presence: None/Denies (Francisco Serna, RN) Pain Type: N/A (Fracnisco Serna, RN) Vaginal Exam Vaginal Bleeding: None (Francisco Kareem, RN) Maternal Assessment Level of Consciousness: Fully Conscious (Francisco Serna, RN) Headache: Denies (Francisco Serna, RN) Breath Sounds, Left: Clear and Equal (Francisco Serna, RN) Breath Sounds, Right: Clear and Equal (Francisco Serna, RN) Nausea/Vomiting: Denies (Francisco Serna, RN) LaborFlag: Antepartum (QS system process)
[2017-01-05] MEDS: DINOPROSTONE 10 MG VAGINAL INSERT.SR PV PRN (20:49)
[2017-01-05] MEDS ORDERED: ZOLPIDEM TARTRATE 5 MG TABLET PO PRN (21:52)
--- NOTE | 2017-01-05 22:00 | L&D Flow Sheet ---
LD Flowsheet Datetime Report Generated by CPN: 01/05/2017 22:00 Datetime: 01/05/2017 21:51 NBP Sys/[place] Jesus/Mean (mmHg): 108 (QS system process) : 61 (QS system process) : 78 (QS system process) Pulse: 84 (QS system process) LaborFlag: Antepartum (QS system process) Datetime: 01/05/2017 21:30 Monitor Mode: External; Palpation (Jak Robles, RN) Frequency (min): x1 (Rucsandra Travis, RN) Quality: Mild (Rucsandra Travis, RN) Duration (sec): 140 (Rucsandra Robles, RN) Resting Tone (Palpate): Relaxed (Rucsandra Robles, RN) Contraction Comments: irritability noted (Daviandra Robles, RN) Monitor Mode: External US (Jak Robles, RN) FHR Baseline Rate : 135 (Rucsandra Robles, RN) Variability: Moderate 6-25 bpm (Rucsandra Travis, RN) Accelerations: 15X15 (Rucsandra Travis, RN) Decelerations: None (Rucsandra Travis, RN) Datetime: 01/05/2017 21:21 NBP Sys/Maria De Jesus/Mean (mmHg): 99 (QS system process) : 57 (QS system process) : 74 (QS system process) Pulse: 95 (QS system process) LaborFlag: Antepartum (QS system process) Datetime: 01/05/2017 21:00 Monitor Mode: External; Palpation (Joann Kossmann, RN) Frequency (min): x1 (Joann Carlann, RN) Quality: Mild (Joann Juliosmann, RN) Duration (sec): 270 (Joann Juliosmann, RN) Resting Tone (Palpate): Relaxed (Joann Carlann, RN) Monitor Mode: External US (Joann Felix, RN) Variability: Moderate 6-25 bpm (Joann Kimsmann, RN) Accelerations: 15X15 (Joann Kimsmann, RN) Decelerations: None (Joann Juliotgann, RN) Datetime: 01/05/2017 20:51 NBP Sys/Maria De Jesus/Mean (mmHg): 103 (QS system process) : 59 (QS system process) : 75 (QS system process) Pulse: 109 (QS system process) LaborFlag: Antepartum (QS system process) Datetime: 01/05/2017 20:50 Maternal Comments: pt resting comfortably watching TV, denies needs. (Jak Robles, RN) Datetime: 01/05/2017 20:30 Monitor Mode: External; Palpation (Rucsandra Travis, RN) Frequency (min): none (Rucsandra Travis, RN) Resting Tone (Palpate): Relaxed (Rucsandra Travis, RN) Contraction Comments: pt denies cramping or ctx. (Rucsandra Travis, RN) Monitor Mode: External US (Rucsandra Travis, RN) FHR Baseline Rate : 135 (Rucsandra Travis, RN) Variability: Moderate 6-25 bpm (Rucsandra Travis, RN) Accelerations: 15X15 (Rucsandra Travis, RN) Decelerations: None (Rucsandra Travis, RN) Datetime: 01/05/2017 20:21 NBP Sys/Maria De Jesus/Mean (mmHg): 114 (QS system process) : 70 (QS system process) : 85 (QS system process) Pulse: 111 (QS system process) LaborFlag: Antepartum (QS system process) Datetime: 01/05/2017 20:00 Monitor Mode: External; Palpation (Jak Robles RN) Frequency (min): none (Jak Robles RN) Resting Tone (Palpate): Relaxed (Jak Robles RN) Contraction Comments: abdomen palpate soft. (Jak Robles RN) Monitor Mode: External US (Jak Robles RN) FHR Baseline Rate : 140 (Jak Robles RN) Variability: Moderate 6-25 bpm (Jak Robles RN) Accelerations: 15X15 (Jak Robles RN) Decelerations: None (Jak Robles RN)
[2017-01-05] MEDS ORDERED: ZOLPIDEM TARTRATE 5 MG TABLET ONE (22:29)
[2017-01-06] MEDS: RINGERS SOLUTION,LACTATED 1,000 ML IV PRN ×2 (05:29→19:24)
--- NOTE | 2017-01-06 08:00 | L&D Flow Sheet ---
LD Flowsheet Datetime Report Generated by CPN: 01/06/2017 08:00 Datetime: 01/06/2017 07:40 NBP Sys/Maria De Jesus/Mean (mmHg): 109 (QS system process) : 65 (QS system process) : 78 (QS system process) Pulse: 83 (QS system process) LaborFlag: Antepartum (QS system process) Datetime: 01/06/2017 07:15 Communication: Report Given to @ [facility] RN. Care relinquished (Rucsandra Travis, RN) Datetime: 01/06/2017 07:11 NBP Sys/Maria De Jesus/Mean (mmHg): 103 (QS system process) : 64 (QS system process) : 78 (QS system process) Pulse: 79 (QS system process) LaborFlag: Antepartum (QS system process) Datetime: 01/06/2017 07:00 Monitor Mode: External; Palpation (Rucsandra Travis, RN) Frequency (min): x1 (Rucsandra Travis, RN) Quality: Mild (Rucsandra Travis, RN) Duration (sec): 80 (Rucsandra Travis, RN) Resting Tone (Palpate): Relaxed (Rucsandra Travis, RN) Monitor Mode: External US (Rucsandra Travis, RN) FHR Baseline Rate : 130 (Rucsandra Travis, RN) Variability: Moderate 6-25 bpm (Rucsandra Travis, RN) Accelerations: 15X15 (Rucsandra Travis, RN) Decelerations: None (Rucsandra Travis, RN) Datetime: 01/06/2017 06:58 Maternal Comments: pt back to bed without incident (Rucsandra Travis, RN) Datetime: 01/06/2017 06:48 I/O Interventions: Up to BR (Rucsandra Travis, RN) Datetime: 01/06/2017 06:41 NBP Sys/Maria De Jesus/Mean (mmHg): 101 (QS system process) : 65 (QS system process) : 76 (QS system process) Pulse: 93 (QS system process) LaborFlag: Antepartum (QS system process) Datetime: 01/06/2017 06:30 Monitor Mode: External; Palpation (Jak Robles, RN) Frequency (min): x1 (Jak Robles, RN) Quality: Mild (Rucsandra Travis, RN) Duration (sec): 120 (Rucsandra Travis, RN) Resting Tone (Palpate): Relaxed (Daviandra Robles, RN) Monitor Mode: External US (Jak Robles, RN) FHR Baseline Rate : 130 (Rucsandra Travis, RN) Variability: Moderate 6-25 bpm (Rucsandra Travis, RN) Accelerations: 15X15 (Rucsandra Travis, RN) Decelerations: None (Rucsandra Travis, RN) Datetime: 01/06/2017 06:27 Provider Reviewed Strip: Yes (Jak Robles RN) Strip Reviewed by: Dr Gibson (Jak Robles RN) Communication Comments: Dr Gibson on unit, strip reviewed. (Rucsandra Travis, RN) Datetime: 01/06/2017 06:11 NBP Sys/Maria De Jesus/Mean (mmHg): 103 (QS system process) : 68 (QS system process) : 78 (QS system process) Pulse: 89 (QS system process) LaborFlag: Antepartum (QS system process) Datetime: 01/06/2017 06:02 Maternal Comments: pt resting in bed, no needs. (Rucsandra Travis, RN) Datetime: 01/06/2017 06:00 Monitor Mode: External; Palpation (Rucsandra Travis, RN) Frequency (min): x2 (Jak Robles, RN) Quality: Mild (Jak Robles, RN) Duration (sec): 90-110 (Jak Robles RN) Resting Tone (Palpate): Relaxed (Jak Robles, RN) Monitor Mode: External US (Jak Robles, RN) Monitor Interventions for FHR: Ultrasound Adjusted (Jak Robles RN) FHR Baseline Rate : 135 (Jak Robles, RN) Variability: Moderate 6-25 bpm (Jak Robles, RN) Accelerations: 10X10 (Jak Robles, RN) Decelerations: None (Jak Robles, RN) Datetime: 01/06/2017 05:58 Patient Position/Activity: Right Lateral (Rubradleyand Travis, RN) Datetime: 01/06/2017 05:40 NBP Sys/Maria De Jesus/Mean (mmHg): 100 (QS system process) : 69 (QS system process) : 80 (QS system process) Pulse: 86 (QS system process) LaborFlag: Antepartum (QS system process) Datetime: 01/06/2017 05:30 Monitor Mode: External; Palpation (Rubradleyandra Travis, RN) Frequency (min): none (Rucsandra Travis, RN) Resting Tone (Palpate): Relaxed (Rucsandra Travis, RN) Monitor Mode: External US (Rucsandra Travis, RN) FHR Baseline Rate : 135 (Rucsandra Travis, RN) Variability: Moderate 6-25 bpm (Rucsandra Travis, RN) Accelerations: 15X15 (Rucsandra Travis, RN) Decelerations: None (Rucsandra Travis, RN) IV/Blood Work: IV Infusing per Order; New IV Bag Hung (Rucsandra Travis, RN) Datetime: 01/06/2017 05:28 Maternal Comments: pt back to bed without incident (Rucsandra Travis, RN) Datetime: 01/06/2017 05:22 I/O Interventions: Up to BR (Jak Robles, RN) Datetime: 01/06/2017 05:11 NBP Sys/Maria De Jesus/Mean (mmHg): 94 (QS system process) : 50 (QS system process) : 67 (QS system process) Pulse: 85 (QS system process) LaborFlag: Antepartum (QS system process) Datetime: 01/06/2017 05:00 Monitor Mode: External; Palpation (Jak Robles RN) Frequency (min): irritability (Jak Robles RN) Quality: Mild (Rucsandra Travis, RN) Resting Tone (Palpate): Relaxed (Rucsandra Travis, RN) Monitor Mode: External US (Rucsandra Robles, RN) FHR Baseline Rate : 125 (Rucsandra Travis, RN) Variability: Moderate 6-25 bpm (Rucsandra Travis, RN) Accelerations: 15X15 (Rucsandra Travis, RN) Decelerations: None (Rucsandra Travis, RN) Datetime: 01/06/2017 04:43 NBP Sys/Maria De Jesus/Mean (mmHg): 190 (QS system process) : 98 (QS system process) : 112 (QS system process) Pulse: 94 (QS system process) LaborFlag: Antepartum (QS system process) Datetime: 01/06/2017 04:30 Monitor Mode: External; Palpation (Rucsandra Travis, RN) Frequency (min): x2 (Rucsandra Travis, RN) Quality: Mild (Rucsandra Travis, RN) Duration (sec): 80-120 (Rucsandra Travis, RN) Resting Tone (Palpate): Relaxed (Rucsandra Travis, RN) Monitor Mode: External US (Daviandra Robles, RN) FHR Baseline Rate : 125 (Rucsandra Travis, RN) Variability: Moderate 6-25 bpm (Rucsandra Travis, RN) Accelerations: 15X15 (Rucsandra Travis, RN) Decelerations: None (Rucsandra Travis, RN) Datetime: 01/06/2017 04:11 NBP Sys/Maria De Jesus/Mean (mmHg): 84 (QS system process) : 49 (QS system process) : 61 (QS system process) Pulse: 85 (QS system process) LaborFlag: Antepartum (QS system process) Datetime: 01/06/2017 04:00 Monitor Mode: External; Palpation (Rucsandra Travis, RN) Frequency (min): x3 (Rucsandra Travis, RN) Quality: Mild (Rucsandra Travis, RN) Duration (sec): 100-120 (Rucsandra Travis, RN) Resting Tone (Palpate): Relaxed (Rucsandra Travis, RN) Monitor Mode: External US (Jak Robles, RN) FHR Baseline Rate : 125 (Rucsandra Travis, RN) Variability: Moderate 6-25 bpm (Rucsandra Travis, RN) Accelerations: 15X15 (Rucsandra Travis, RN) Decelerations: None (Rucsandra Travis, RN) Datetime: 01/06/2017 03:40 NBP Sys/Maria De Jesus/Mean (mmHg): 102 (QS system process) : 55 (QS system process) : 73 (QS system process) Pulse: 90 (QS system process) LaborFlag: Antepartum (QS system process) Datetime: 01/06/2017 03:30 Monitor Mode: External; Palpation (Rucsandra Travis, RN) Frequency (min): x2 (Rucsandra Travis, RN) Quality: Mild (Rucsandra Travis, RN) Duration (sec): 60-150 (Rucsandra Travis, RN) Resting Tone (Palpate): Relaxed (Rucsandra Travis, RN) Monitor Mode: External US (Daviandra Robles, RN) Monitor Interventions for FHR: Ultrasound Adjusted (Rucsandra Travis, RN) FHR Baseline Rate : 125 (Rucsandra Travis, RN) Variability: Moderate 6-25 bpm (Rucsandra Travis, RN) Accelerations: 15X15 (Rucsandra Travis, RN) Decelerations: None (Rucsandra Travis, RN) Datetime: 01/06/2017 03:28 Monitor Interventions for FHR: Ultrasound Adjusted (Rucsandra Travis, RN) Datetime: 01/06/2017 03:11 NBP Sys/Maria De Jesus/Mean (mmHg): 100 (QS system process) : 64 (QS system process) : 77 (QS system process) Pulse: 87 (QS system process) LaborFlag: Antepartum (QS system process) Datetime: 01/06/2017 03:00 Temperature (F): 98.1 (Rucsandra Travis, RN) Temperature (C): 36.7 (QS system process) Monitor Mode: External; Palpation (Rucsandra Travis, RN) Frequency (min): x1 (Rucsandra Travis, RN) Quality: Mild (Rucsandra Travis, RN) Duration (sec): 170 (Rucsandra Travis, RN) Resting Tone (Palpate): Relaxed (Rucsandra Travis, RN) Monitor Mode: External US (Rucsandra Travis, RN) FHR Baseline Rate : 115 (Rucsandra Travis, RN) Variability: Moderate 6-25 bpm (Rucsandra Travis, RN) Accelerations: 15X15 (Rucsandra Travis, RN) Decelerations: None (Rucsandra Travis, RN) Pain Scale: 0 (Rucsandra Travis, RN) Pain Presence: None/Denies (Rucsandra Travis, RN) Pain Type: N/A (Rucsandra Travis, RN) LaborFlag: Antepartum (QS system process) Datetime: 01/06/2017 02:56 Patient Position/Activity: Right Lateral (Rucsandra Travis, RN) Datetime: 01/06/2017 02:55 Maternal Comments: pt back to bed without incident (Rucsandra Travis, RN) Datetime: 01/06/2017 02:49 I/O Interventions: Up to BR (Rucsandra Travis, RN) Datetime: 01/06/2017 02:41 NBP Sys/Maria De Jesus/Mean (mmHg): 98 (QS system process) : 56 (QS system process) : 72 (QS system process) Pulse: 85 (QS system process) LaborFlag: Antepartum (QS system process) Datetime: 01/06/2017 02:30 Monitor Mode: External; Palpation (Rucsandra Travis, RN) Frequency (min): x2 (Rucsandra Travis, RN) Quality: Mild (Rucsandra Tarvis, RN) Duration (sec): 160-200 (Rucsandra Travis, RN) Resting Tone (Palpate): Relaxed (Rucsandra Travis, RN) Monitor Mode: External US (Rucsandra Travis, RN) FHR Baseline Rate : 115 (Rucsandra Travis, RN) Variability: Moderate 6-25 bpm (Rucsandra Travis, RN) Accelerations: 15X15 (Rucsandra Travis, RN) Decelerations: None (Rucsandra Travis, RN) Maternal Comments: pt sleeping (Rucsandra Travis, RN) Datetime: 01/06/2017 02:10 NBP Sys/Maria De Jesus/Mean (mmHg): 97 (QS system process) : 53 (QS system process) : 69 (QS system process) Pulse: 91 (QS system process) LaborFlag: Antepartum (QS system process) Datetime: 01/06/2017 02:00 Monitor Mode: External; Palpation (Rucsandra Travis, RN) Frequency (min): x1 (Rucsandra Travis, RN) Quality: Mild (Rucsandra Travis, RN) Duration (sec): 170 (Rucsandra Travis, RN) Resting Tone (Palpate): Relaxed (Rucsandra Travis, RN) Monitor Mode: External US (Rucsandra Travis, RN) FHR Baseline Rate : 110 (Rucsandra Travis, RN) Variability: Moderate 6-25 bpm (Rucsandra Travis, RN) Accelerations: 15X15 (Rucsandra Travis, RN) Decelerations: None (Rucsandra Travis, RN) Datetime: 01/06/2017 01:39 NBP Sys/Maria De Jesus/Mean (mmHg): 94 (QS system process) : 60 (QS system process) : 72 (QS system process) Pulse: 88 (QS system process) LaborFlag: Antepartum (QS system process) Datetime: 01/06/2017 01:37 Monitor Interventions for FHR: Ultrasound Adjusted (Rucsandra Travis, RN) Patient Position/Activity: Right Lateral (Rucsandra Travis, RN) Datetime: 01/06/2017 01:30 Monitor Mode: External; Palpation (Rucsandra Travis, RN) Frequency (min): x1 (Rucsandra Travis, RN) Quality: Mild (Rucsandra Travis, RN) Duration (sec): 130 (Rucsandra Travis, RN) Resting Tone (Palpate): Relaxed (Rucsandra Travis, RN) Monitor Mode: External US (Rucsandra Travis, RN) FHR Baseline Rate : 120 (Rucsandra Travis, RN) Variability: Minimal - Undetectable to <=5 bpm (Rucsandra Travis, RN) Accelerations: 15X15 (Rucsandra Travis, RN) Decelerations: None (Rucsandra Travis, RN) Datetime: 01/06/2017 01:22 NBP Sys/Maria De Jesus/Mean (mmHg): 84 (QS system process) : 48 (QS system process) : 63 (QS system process) Pulse: 102 (QS system process) LaborFlag: Antepartum (QS system process) Datetime: 01/06/2017 01:00 Monitor Mode: External; Palpation (Rucsandra Travis, RN) Frequency (min): x2 (Rucsandra Travis, RN) Quality: Mild (Rucsandra Travis, RN) Duration (sec): 60-170 (Rucsandra Travis, RN) Resting Tone (Palpate): Relaxed (Rucsandra Travis, RN) Monitor Mode: External US (Rucsandra Travis, RN) FHR Baseline Rate : 115 (Rucsandra Travis, RN) Variability: Moderate 6-25 bpm (Rucsandra Travis, RN) Accelerations: 15X15 (Rucsandra Travis, RN) Decelerations: None (Rucsandra Rtavis, RN) Datetime: 01/06/2017 00:51 NBP Sys/Maria De Jesus/Mean (mmHg): 81 (QS system process) : 46 (QS system process) : 59 (QS system process) Pulse: 93 (QS system process) LaborFlag: Antepartum (QS system process) Datetime: 01/06/2017 00:30 Monitor Mode: External; Palpation (Rucsandra Travis, RN) Frequency (min): occasional (Rucsandra Travis, RN) Quality: Mild (Rucsandra Travis, RN) Duration (sec): 60-80 (Rucsandra Travis, RN) Resting Tone (Palpate): Relaxed (Rucsandra Travis, RN) Monitor Mode: External US (Rucsandra Travis, RN) FHR Baseline Rate : 125 (Rucsandra Travis, RN) Variability: Moderate 6-25 bpm (Rucsandra Travis, RN) Accelerations: 15X15 (Rucsandra Travis, RN) Decelerations: None (Rucsandra Travis, RN) Datetime: 01/06/2017 00:21 NBP Sys/Maria De Jesus/Mean (mmHg): 83 (QS system process) : 44 (QS system process) : 59 (QS system process) Pulse: 93 (QS system process) LaborFlag: Antepartum (QS system process) Datetime: 01/06/2017 00:00 Monitor Mode: External; Palpation (Rucsandra Travis, RN) Frequency (min): x1 (Rucsandra Travis, RN) Quality: Mild (Rucsandra Travis, RN) Duration (sec): 200 (Rucsandra Travis, RN) Resting Tone (Palpate): Relaxed (Rucsandra Travis, RN) Monitor Mode: External US (Rucsandra Travis, RN) FHR Baseline Rate : 125 (Rucsandra Travis, RN) Variability: Moderate 6-25 bpm (Rucsandra Travis, RN) Accelerations: 15X15 (Rucsandra Travis, RN) Decelerations: None (Rucsandra Travis, RN) Datetime: 01/05/2017 23:59 Pain Scale: 0 (Jak Robles RN) Pain Presence: None/Denies (Jak Robles RN) Pain Type: N/A (Jak Robles RN) Maternal Comments: pt sleeping but easily arousable. (Jak Robles RN) LaborFlag: Antepartum (QS system process) Datetime: 01/05/2017 23:56 Monitor Interventions for UA: [place] Adjusted (Jak Robles, ) Datetime: 01/05/2017 23:51 NBP Sys/Maria De Jesus/Mean (mmHg): 96 (QS system process) : 50 (QS system process) : 64 (QS system process) Pulse: 98 (QS system process) Patient Position/Activity: Left Lateral (Rucsandra Travis, RN) LaborFlag: Antepartum (QS system process) Datetime: 01/05/2017 23:30 Monitor Mode: External; Palpation (Rucsandra Travis, RN) Frequency (min): x1 (Rucsandra Travis, RN) Quality: Mild (Rucsandra Travis, RN) Duration (sec): 300 (Rucsandra Travis, RN) Resting Tone (Palpate): Relaxed (Rucsandra Travis, RN) Monitor Mode: External US (Rucsandra Travis, RN) FHR Baseline Rate : 125 (Rucsandra Travis, RN) Variability: Moderate 6-25 bpm (Rucsandra Travis, RN) Accelerations: 15X15 (Rucsandra Travis, RN) Decelerations: None (Rucsandra Travis, RN) Patient Position/Activity: Right Lateral (Rucsandra Travis, RN) Datetime: 01/05/2017 23:29 Monitor Interventions for FHR: Ultrasound Adjusted (Rucsandra Travis, RN) Datetime: 01/05/2017 23:22 NBP Sys/Maria De Jesus/Mean (mmHg): 95 (QS system process) : 58 (QS system process) : 72 (QS system process) Pulse: 96 (QS system process) LaborFlag: Antepartum (QS system process) Datetime: 01/05/2017 23:13 Maternal Comments: additional pillows provided. (Rucsandra Travis, RN) Datetime: 01/05/2017 23:09 Monitor Interventions for UA: [place] Adjusted (Wescsandra Robles, RN) Monitor Interventions for FHR: Ultrasound Adjusted (Rubradleyandra Robles, RN) Maternal Comments: audible movement (Rucsandra Travis, RN) Datetime: 01/05/2017 23:00 Monitor Mode: External; Palpation (Rucsandra Robles, RN) Frequency (min): irritability noted (Rucsandra Travis, RN) Resting Tone (Palpate): Relaxed (Rucsandra Travis, RN) Monitor Mode: External US (Rucsandra Travis, RN) FHR Baseline Rate : 150 (Rucsandra Travis, RN) Variability: Moderate 6-25 bpm (Rucsandra Travis, RN) Accelerations: 10X10 (Rucsandra Travis, RN) Decelerations: None (Rucsandra Travis, RN) Datetime: 01/05/2017 22:51 NBP Sys/Maria De Jesus/Mean (mmHg): 105 (QS system process) : 70 (QS system process) : 83 (QS system process) Pulse: 78 (QS system process) LaborFlag: Antepartum (QS system process) Datetime: 01/05/2017 22:49 Patient Position/Activity: Right Lateral (Rucsandra Travis, RN) Datetime: 01/05/2017 22:47 Maternal Comments: pt back to bed without incident (Rucsandra Travis, RN) Datetime: 01/05/2017 22:41 I/O Interventions: Up to BR (Rucsandra Travis, RN) Datetime: 01/05/2017 22:35 Maternal Comments: audible movement. Pt reports feeling baby moving. (Rucsandra Travis, RN) Datetime: 01/05/2017 22:32 Maternal Comments: audible movement (Rucsandra Travis, RN) Datetime: 01/05/2017 22:30 Monitor Mode: External; Palpation (Rucsandra Robles, RN) Frequency (min): x1 (Rucsandra Travis, RN) Quality: Mild (Rucsandra Travis, RN) Duration (sec): 120 (Jak Robles RN) Resting Tone (Palpate): Relaxed (Jak Robles RN) Monitor Mode: External US (Jak Robles RN) FHR Baseline Rate : 155 (Jak Robles RN) Variability: Moderate 6-25 bpm (Jak Robles RN) Accelerations: 15X15 (Jak Robles RN) Decelerations: None (Jak Robles RN) Analgesics/Sedatives: Ambien (mg) @ 10mg PO (Jak Robles RN) Medication Comments: Intended effects and possible side effects explained to pt. Pt agrees and V/U. (Jak Robles RN) Datetime: 01/05/2017 22:20 NBP Sys/Maria De Jesus/Mean (mmHg): 123 (QS system process) : 84 (QS system process) : 99 (QS system process) Pulse: 97 (QS system process) LaborFlag: Antepartum (QS system process) Datetime: 01/05/2017 22:18 Monitor Interventions for FHR: Ultrasound Adjusted (Rucsandra Travis, RN) Maternal Comments: audible movement (Rucsandra Travis, RN) Datetime: 01/05/2017 22:09 Maternal Comments: audible movement (Rucsandra Travis, RN) I/O Interventions: Popsicle (Rucsandra Travis, RN) Datetime: 01/05/2017 22:02 Maternal Comments: pt back to bed without incident (Rucsandra Travis, RN) Datetime: 01/05/2017 22:00 Monitor Mode: External; Palpation (Jak oRbles RN) Frequency (min): x1 (Jak Robles RN) Quality: Mild (Jak Robles RN) Duration (sec): 270 (Jak Robles RN) Resting Tone (Palpate): Relaxed (Jak Robles RN) Contraction Comments: irritability noted (Jak Robles RN) Monitor Mode: External US (Jak Robles RN) FHR Baseline Rate : 135 (Jak Robles RN) Variability: Moderate 6-25 bpm (Jak Robles RN) Accelerations: 15X15 (Jak Robles RN) Decelerations: None (Jak Robles RN)
[2017-01-06] MEDS ORDERED: MISOPROSTOL 0.1 MG TABLET ONE (09:41)
--- NOTE | 2017-01-06 10:00 | L&D Flow Sheet ---
LD Flowsheet Datetime Report Generated by CPN: 01/06/2017 10:00 Datetime: 01/06/2017 09:19 Dilatation (cm): 1.0 (Laura Cox RN) Effacement (%): 50 (Laura Cox RN) Station: -3 (Laura Cox RN) Exam by: Pavithra Cox RN (Laura Cox RN) Vaginal Bleeding: None (Laura Cox RN) Cervix, Consistency: Moderate (Laura Cox RN) Cervix, Position: Posterior (Laura Cox RN) Datetime: 01/06/2017 08:06 Level of Consciousness: Fully Conscious (Laura Cox RN) DTR's/Clonus: DTRs 2+; No Clonus (Laura Cox RN) Headache: Denies (Laura Cox RN) Breath Sounds, Left: Clear and Equal (Laura Cox RN) Breath Sounds, Right: Clear and Equal (Laura Cox RN) Nausea/Vomiting: Denies (Laura Cox RN) RUQ Epigastric Pain: Denies (Laura Cox RN)
[2017-01-06] MEDS ORDERED: MISOPROSTOL 0.1 MG TABLET PO ONE (10:30)
--- NOTE | 2017-01-06 12:00 | L&D Flow Sheet ---
LD Flowsheet Datetime Report Generated by CPN: 01/06/2017 12:00 Datetime: 01/06/2017 11:40 NBP Sys/Maria De Jesus/Mean (mmHg): 114 (QS system process) : 60 (QS system process) : 78 (QS system process) Pulse: 85 (QS system process) LaborFlag: Antepartum (QS system process) Datetime: 01/06/2017 11:10 NBP Sys/Maria De Jesus/Mean (mmHg): 103 (QS system process) : 73 (QS system process) : 83 (QS system process) Pulse: 86 (QS system process) LaborFlag: Antepartum (QS system process) Datetime: 01/06/2017 11:00 Monitor Mode: External (Laura Marhefka, RN) Frequency (min): no ctxs noted (Laura Marhefka, RN) Quality: Mild (Laura Marhefka, RN) Resting Tone (Palpate): Relaxed (Laura Marhefka, RN) Monitor Mode: External US (Laura Marhefka, RN) FHR Baseline Rate : 135 (Laura Marhefka, RN) FHR Baseline Changes: No Baseline Change (Luara Marhefka, RN) Variability: Moderate 6-25 bpm (Laura Marhefka, RN) Accelerations: 15X15 (Laura Marhefka, RN) Decelerations: None (Laura Marhefka, RN) Datetime: 01/06/2017 10:40 NBP Sys/Maria De Jesus/Mean (mmHg): 108 (QS system process) : 62 (QS system process) : 79 (QS system process) Pulse: 102 (QS system process) LaborFlag: Antepartum (QS system process) Datetime: 01/06/2017 10:30 Monitor Mode: External (Laura Marhefka, RN) Frequency (min): No ctxs noted/pt denies (Laura Marhefka, RN) Quality: Mild (Laura Marhefka, RN) Resting Tone (Palpate): Relaxed (Laura Marhefka, RN) Monitor Mode: External US (Laura Marhefka, RN) FHR Baseline Rate : 140 (Laura Marhefka, RN) FHR Baseline Changes: No Baseline Change (Laura Marhefka, RN) Variability: Moderate 6-25 bpm (Laura Marhefka, RN) Accelerations: 15X15 (Laura Marhefka, RN) Decelerations: None (Laura Marhefka, RN) Datetime: 01/06/2017 10:10 NBP Sys/Maria De Jesus/Mean (mmHg): 113 (QS system process) : 66 (QS system process) : 82 (QS system process) Pulse: 87 (QS system process) Respirations: 15 (Laura Cox RN) Temperature (F): 98.9 (Laura Cox RN) Temperature (C): 37.2 (QS system process) Temperature Route: Oral (Laura Cox RN) LaborFlag: Antepartum (QS system process) Datetime: 01/06/2017 10:03 NBP Sys/Maria De Jesus/Mean (mmHg): 103 (QS system process) : 64 (QS system process) : 77 (QS system process) Pulse: 88 (QS system process) LaborFlag: Antepartum (QS system process) Datetime: 01/06/2017 10:00 Cervical Ripening Agents: Cytotec @ 50 MCG PO (Laura Cox RN)
--- NOTE | 2017-01-06 14:00 | L&D Flow Sheet ---
LD Flowsheet Datetime Report Generated by CPN: 01/06/2017 14:00 Datetime: 01/06/2017 13:40 NBP Sys/Maria De Jesus/Mean (mmHg): 107 (QS system process) : 66 (QS system process) : 81 (QS system process) Pulse: 94 (QS system process) LaborFlag: Antepartum (QS system process) Datetime: 01/06/2017 13:01 I/O Interventions: Up to BR (Laura Marhefka, RN) Datetime: 01/06/2017 13:00 Monitor Mode: External (Laura Marhefka, RN) Frequency (min): Irregular (Laura Marhefka, RN) Quality: Mild (Laura Marhefka, RN) Duration (sec): 40-70 (Laura Marhefka, RN) Resting Tone (Palpate): Relaxed (Laura Marhefka, RN) Monitor Mode: External US (Laura Marhefka, RN) FHR Baseline Rate : 135 (Laura Marhefka, RN) FHR Baseline Changes: No Baseline Change (Laura Marhefka, RN) Variability: Moderate 6-25 bpm (Laura Marhefka, RN) Accelerations: 15X15 (Laura Marhefka, RN) Decelerations: None (Laura Marhefka, RN) Datetime: 01/06/2017 12:43 Patient Position/Activity: High Fowlers (Laura Marhefka, RN) Patient Care Comments: Pt sitting up in bed eating lunch (Laura Marhefka, RN) Datetime: 01/06/2017 12:30 Monitor Mode: External (Laura Marhefka, RN) Frequency (min): Irregular (Laura Marhefka, RN) Quality: Mild (Laura Marhefka, RN) Duration (sec): 40-110 (Laura Marhefka, RN) Resting Tone (Palpate): Relaxed (Laura Marhefka, RN) Monitor Mode: External US (Laura Marhefka, RN) FHR Baseline Rate : 130 (Laura Marhefka, RN) FHR Baseline Changes: No Baseline Change (Laura Marhefka, RN) Variability: Moderate 6-25 bpm (Laura Marhefka, RN) Accelerations: 15X15 (Laura Marhefka, RN) Decelerations: None (Laura Marhefka, RN) Datetime: 01/06/2017 12:10 NBP Sys/Maria De Jesus/Mean (mmHg): 96 (QS system process) : 66 (QS system process) : 77 (QS system process) Pulse: 96 (QS system process) LaborFlag: Antepartum (QS system process) Datetime: 01/06/2017 12:00 Monitor Mode: External (Laura Cox RN) Frequency (min): 130 (Laura Cox RN) Quality: Mild (Laura Cox RN) Duration (sec): 50-80 (Laura Cox RN) Resting Tone (Palpate): Relaxed (Laura Cox RN) Monitor Mode: External US (Laura Cox RN) FHR Baseline Rate : 130 (Laura Cox RN) FHR Baseline Changes: No Baseline Change (Laura Cox RN) Variability: Moderate 6-25 bpm (Laura Cox RN) Accelerations: 15X15 (Laura Cox RN) Decelerations: None (Laura Cox RN)
[2017-01-06] MEDS ORDERED: OXYTOCIN/NORMAL SALINE 20 UNIT/1,000 ML RTUINJ ONE ×2 (14:16→23:37)
[2017-01-06] MEDS ORDERED: BUPIVACAINE HCL 0.25 % INJ/PF (2.5 MG/1 ML) 30 ML VIAL INFIL ONE (14:17)
[2017-01-06] MEDS ORDERED: OXYTOCIN/NORMAL SALINE 1,000 ML IV PRN (14:17)
[2017-01-06] MEDS ORDERED: BENZOIN/ALOE VERA/STORAX/TOLU TINCTURE 60 ML TP PRN (14:17)
--- NOTE | 2017-01-06 14:30 | L&D Progress Notes ---
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, septate abnormal placenta- pt seen by MFM polyhydramnios with an EFW in the 96th % Rh negative abdomen nontender FHTs 120s and reactive ctxs increasing in intensity mild palpation SVE /-2 AROM clear after cytotec 50 mcg po and 25 mcg pv poc reviewed with pt and family epidural prn start pitcoin per protocol anticipate VAGINAL EXAM Dilatation: 3 Effacement: 70 Station: -2 MEMBRANES Membranes: Ruptured Membranes: Intact FETUS A FHR - Baseline: 120 Monitoring: External US Variability: Moderate 6-25bpm Accelerations: 15X15 FHR Category: Category I : 39.1 SIGNATURE SIGNATURE: ,[id number] SIGNATURE: ,[id number] Assignment: Екатерина Ramos MD Signature: with User ID: [email or web address] : with User ID: [email or web address]
[2017-01-06] MEDS ORDERED: EPHEDRINE SULFATE INJ 50 MG/1 ML AMPULE ONE (15:31)
[2017-01-06] MEDS ORDERED: PHENYLEPHRINE HCL INJ/PF 10 MG/1 ML SDV ONE (15:31)
[2017-01-06] MEDS ORDERED: FENTANYL CITRATE INJ/PF 100 MCG/2 ML AMPUL ONE (15:31)
[2017-01-06] MEDS ORDERED: FENTANYL/BUPIVACAINE/NS/PF 200 MCG/100 ML RTUINJ EPI ONE (15:32)
[2017-01-06] MEDS ORDERED: BUPIVACAINE HCL 0.25 % INJ/PF (2.5 MG/1 ML) 30 ML VIAL ONE ×2 (15:32→21:57)
--- NOTE | 2017-01-06 16:00 | L&D Flow Sheet ---
LD Flowsheet Datetime Report Generated by CPN: 01/06/2017 16:00 Datetime: 01/06/2017 15:57 Procedure Verify: Correct Patient Identity; Correct Side and Site are Marked; Accurate Procedure Consent Form; Agreement on Procedure to be Done; Correct Patient Position; Relevant Images and Results are Properly Labeled and Displayed; Addressed Need to Administer Antibiotics or Fluids for Irrigation; Safety Precautions Based on Patient History or Medication Use (Laura Cox RN) Anesthesia Plans: Epidural (Laura Cox RN) Epidural Positioning: Sitting (Laura Cox RN) Datetime: 01/06/2017 15:52 Communication Comments: Dr. Prernahead called and notified of patient's request for epidural. (Laura Cox, RN) Datetime: 01/06/2017 15:45 Pitocin (milliunit): Pitocin Remains (milliunits) @ (Annotations: 10) (Laura Cox, RN) Datetime: 01/06/2017 15:42 NBP Sys/Maria De Jesus/Mean (mmHg): 118 (QS system process) : 63 (QS system process) : 83 (QS system process) Pulse: 93 (QS system process) LaborFlag: Antepartum (QS system process) Datetime: 01/06/2017 15:30 Pitocin (milliunit): Pitocin Increased to (milliunits) @ (Annotations: 10) (Laura Cox, RN) Datetime: 01/06/2017 15:15 Pitocin (milliunit): Pitocin Increased to (milliunits) @ (Annotations: 8) (Laura Cox, RN) Datetime: 01/06/2017 15:10 NBP Sys/Maria De Jesus/Mean (mmHg): 96 (QS system process) : 59 (QS system process) : 75 (QS system process) Pulse: 99 (QS system process) LaborFlag: Antepartum (QS system process) Datetime: 01/06/2017 15:00 Monitor Mode: External (Laura Marhefka, RN) Frequency (min): 3-9 (Laura Marhefka, RN) Quality: Mild (Laura Marhefka, RN) Duration (sec): 50-110 (Laura Marhefka, RN) Resting Tone (Palpate): Relaxed (Laura Marhefka, RN) Monitor Mode: External US (Laura Marhefka, RN) FHR Baseline Rate : 140 (Laura Marhefka, RN) FHR Baseline Changes: No Baseline Change (Laura Marhefka, RN) Variability: Moderate 6-25 bpm (Laura Marhefka, RN) Accelerations: None (Laura Marhefka, RN) Decelerations: None (Laura Marhefka, RN) Pitocin (milliunit): Pitocin Increased to (milliunits) @ (Annotations: 6) (Laura Marhefka, RN) Datetime: 01/06/2017 14:45 Monitor Mode: External (Laura Marhefka, RN) Frequency (min): Irregular (Laura Marhefka, RN) Quality: Mild (Laura Marhefka, RN) Duration (sec): 40-60 (Laura Marhefka, RN) Resting Tone (Palpate): Relaxed (Laura Marevafka, RN) Monitor Mode: External US (Laura Cox, RN) FHR Baseline Rate : 145 (Laura Marhefka, RN) FHR Baseline Changes: No Baseline Change (Laura Marhefka, RN) Variability: Moderate 6-25 bpm (Laura Marhefka, RN) Accelerations: None (Laura Marhefka, RN) Decelerations: None (Laura Marhefka, RN) Pitocin (milliunit): Pitocin Increased to (milliunits) @ 4 (Laura Marevafka, RN) Datetime: 01/06/2017 14:30 Monitor Mode: External (Laura Heathfka, RN) Frequency (min): 1-4 (Laura Marevafka, RN) Quality: Mild (Laura Marhefka, RN) Duration (sec): 30-110 (Laura Marhefka, RN) Resting Tone (Palpate): Relaxed (Laura Marevafka, RN) Monitor Mode: External US (Laura Cox, RN) FHR Baseline Rate : 135 (Laura Marhefka, RN) FHR Baseline Changes: No Baseline Change (Laura Marhefka, RN) Variability: Moderate 6-25 bpm (Laura Marhefka, RN) Accelerations: 15X15 (Laura Marhefka, RN) Decelerations: None (Laura Marhefka, RN) Pitocin (milliunit): Pitocin Started (milliunits) @ 2 (Laura Marhefka, RN) Datetime: 01/06/2017 14:11 NBP Sys/Maria De Jesus/Mean (mmHg): 128 (QS system process) : 80 (QS system process) : 100 (QS system process) Pulse: 88 (QS system process) LaborFlag: Antepartum (QS system process) Datetime: 01/06/2017 14:07 Dilatation (cm): 3.0 (Laura Cox RN) Effacement (%): 70 (Laura Cox RN) Station: -2 (Laura Cox RN) Exam by: Lenora Hernandez CNM (Laura Cox RN) Membrane Status: Ruptured (Laura Cox RN) Membranes Rupture Method: Artificial (Laura Cox RN) Amniotic Fluid Color: Clear (Laura Cox RN) Amniotic Fluid Amount: Large (Laura Cox RN) Amniotic Fluid Odor: Normal (Laura Cox RN) Vaginal Bleeding: None (Laura Cox RN) Cervix, Consistency: Soft (Laura Cox RN) Cervix, Position: Posterior (Laura Cox RN) Datetime: 01/06/2017 14:00 Monitor Mode: External (Laura Cox RN) Frequency (min): Irregular (Laura Cox RN) Quality: Mild (Laura Cox RN) Duration (sec): 40-60 (Laura Cox RN) Resting Tone (Palpate): Relaxed (Laura Cox RN) Monitor Mode: External US (Laura Cox RN) FHR Baseline Rate : 130 (Laura Cox RN) FHR Baseline Changes: No Baseline Change (Laura Cox RN) Variability: Moderate 6-25 bpm (Laura Cox RN) Accelerations: 15X15 (Laura Cox RN) Decelerations: None (Laura Cox RN)
[2017-01-06] MEDS: FENTANYL/BUPIVACAINE/NS/PF 100 ML EPI PRN (17:09)
[2017-01-06] MEDS: DINOPROSTONE 10 MG VAGINAL INSERT.SR PV PRN (17:09)
--- NOTE | 2017-01-06 17:31 | L&D Progress Notes ---
PROGRESS NOTES Datetime Report Generated by CPN: 01/06/2017 17:31 PROGRESS NOTE Impression: Normal Progression of Labor Plan: Continue Present Management; Induction Informed Consent Obtained: Vaginal Delivery; Risks, Benefits and Alternatives Discussed Vital Signs : Reviewed Comment: pt on peanut ball after epidural placement FHTs reactive contractions 1-4 minutes pitocin at 16 milliunits/ min abdomen nontender pt comfortable cervical exam per RN /-2 poc reviewed with pt and family anticipate FETUS A FHR - Baseline: 120 Monitoring: External US Variability: Moderate 6-25bpm Accelerations: 15X15 Decelerations: None FHR Category: Category I FETUS C SIGNATURE: [id number] Assignment: Екатерина Ramos MD Signature: with User ID: [email or web address] : with User ID: [email or web address]
--- NOTE | 2017-01-06 18:00 | L&D Flow Sheet ---
LD Flowsheet Datetime Report Generated by CPN: 01/06/2017 18:00 Datetime: 01/06/2017 17:50 NBP Sys/Maria De Jesus/Mean (mmHg): 90 (QS system process) : 55 (QS system process) : 68 (QS system process) Pulse: 76 (QS system process) LaborFlag: Antepartum (QS system process) Datetime: 01/06/2017 17:45 Monitor Mode: External (Laura Brooke, RN) Frequency (min): 1-4 (Laura Heathffrancisco, RN) Quality: Moderate (Laura Joefka, RN) Duration (sec): 60-80 (Laura Joeffrancisco, RN) Resting Tone (Palpate): Relaxed (Laura Cox, RN) Monitor Mode: External US (Laura Cox, RN) FHR Baseline Rate : 130 (Laura Marevafka, RN) FHR Baseline Changes: No Baseline Change (Laura Joefka, RN) Variability: Minimal - Undetectable to <=5 bpm (Laura Marevafka, RN) Accelerations: 15X15 (Laura Marhefka, RN) Decelerations: None (Laura Marevafka, RN) Pitocin (milliunit): Pitocin Remains (milliunits) @ (Annotations: 20) (Laura Heathfka, RN) Datetime: 01/06/2017 17:36 NBP Sys/Maria De Jesus/Mean (mmHg): 98 (QS system process) : 56 (QS system process) : 68 (QS system process) Pulse: 91 (QS system process) Patient Position/Activity: Right Lateral; Peanut Ball; Low Fowlers (Laura Cox, RN) LaborFlag: Antepartum (QS system process) Datetime: 01/06/2017 17:30 Monitor Mode: External (Laura Marhefka, RN) Frequency (min): 2-4 (Laura Marhefka, RN) Quality: Moderate (Laura Marhefka, RN) Duration (sec): 50-110 (Laura Marhefka, RN) Resting Tone (Palpate): Relaxed (Laura Marhefka, RN) Monitor Mode: External US (Laura Marhefka, RN) FHR Baseline Rate : 135 (Laura Marhefka, RN) FHR Baseline Changes: No Baseline Change (Laura Marhefka, RN) Variability: Moderate 6-25 bpm (Laura Marhefka, RN) Accelerations: None (Laura Marhefka, RN) Decelerations: None (Laura Marhefka, RN) Pitocin (milliunit): Pitocin Increased to (milliunits) @ (Annotations: 20) (Laura Marhefka, RN) Datetime: 01/06/2017 17:20 NBP Sys/Maria De Jesus/Mean (mmHg): 104 (QS system process) : 70 (QS system process) : 81 (QS system process) Pulse: 84 (QS system process) LaborFlag: Antepartum (QS system process) Datetime: 01/06/2017 17:15 Monitor Mode: External (Laura Marhefka, RN) Frequency (min): 1-3 (Laura Marhefka, RN) Quality: Moderate (Laura Marhefka, RN) Duration (sec): 50-110 (Laura Marhefka, RN) Resting Tone (Palpate): Relaxed (Laura Marhefka, RN) Monitor Mode: External US (Laura Marhefka, RN) FHR Baseline Rate : 135 (Laura Marhefka, RN) FHR Baseline Changes: No Baseline Change (Laura Marhefka, RN) Variability: Moderate 6-25 bpm (Laura Marhefka, RN) Accelerations: 15X15 (Laura Marhefka, RN) Decelerations: None (Laura Marhefka, RN) Pitocin (milliunit): Pitocin Increased to (milliunits) @ (Annotations: 18) (Laura Marhefka, RN) Datetime: 01/06/2017 17:07 NBP Sys/Maria De Jesus/Mean (mmHg): 113 (QS system process) : 67 (QS system process) : 81 (QS system process) Pulse: 80 (QS system process) Respirations: 16 (Laura Marhefka, RN) Pain Scale: 0 (Laura Marhefka, RN) Pain Presence: None/Denies (Laura Cox RN) Pain Type: N/A (Laura Cox RN) Pain Goal: 0 (Laura Cox RN) Pain Relief Measures: Comfort Measures (Laura Cox RN) LaborFlag: Antepartum (QS system process) Datetime: 01/06/2017 17:00 Monitor Mode: External; Palpation (Laura Cox RN) Frequency (min): 2-4 (Laura Cox RN) Quality: Moderate (Laura Cox RN) Duration (sec): 50-90 (Laura Cox RN) Resting Tone (Palpate): Relaxed (Laura Cox RN) Monitor Mode: External US (Laura Cox RN) FHR Baseline Rate : 140 (Laura Cox RN) FHR Baseline Changes: No Baseline Change (Laura Cox RN) Variability: Moderate 6-25 bpm (Laura Cox RN) Accelerations: None (Laura Cox RN) Decelerations: None (Laura Cox RN) Pitocin (milliunit): Pitocin Remains (milliunits) @ (Annotations: 16) (Laura Cox RN) Datetime: 01/06/2017 16:50 NBP Sys/Maria De Jesus/Mean (mmHg): 115 (QS system process) : 57 (QS system process) : 81 (QS system process) Pulse: 83 (QS system process) LaborFlag: Antepartum (QS system process) Datetime: 01/06/2017 16:45 Monitor Mode: External; Palpation (Laura Cox RN) Monitor Interventions for UA: [place] Adjusted (Laura Cox RN) Frequency (min): UTD RN @ bedside palpating and adjusting ultrasound (Laura Cox RN) Quality: Mild/Moderate (Laura Cox RN) Duration (sec): 60 (Laura Cox RN) Resting Tone (Palpate): Relaxed (Laura Cox RN) Monitor Mode: External US (Laura Cox RN) FHR Baseline Rate : 140 (Laura Cox RN) FHR Baseline Changes: No Baseline Change (Laura Cox RN) Variability: Moderate 6-25 bpm (Laura Cox RN) Accelerations: None (Laura Cox RN) Decelerations: None (Laura Cox RN) Pitocin (milliunit): Pitocin Increased to (milliunits) @ (Annotations: 16) (Laura Cox, RN) Datetime: 01/06/2017 16:31 NBP Sys/Maria De Jesus/Mean (mmHg): 109 (QS system process) : 72 (QS system process) : 86 (QS system process) Pulse: 82 (QS system process) LaborFlag: Antepartum (QS system process) Datetime: 01/06/2017 16:30 Monitor Mode: External (Laura Cox, RN) Frequency (min): 2-3 (Laura Cox, RN) Quality: Mild/Moderate (Laura Cox, RN) Duration (sec): 50-70 (Laura Cox, RN) Resting Tone (Palpate): Relaxed (Laura Cox, RN) Monitor Mode: External US (Laura Cox, RN) FHR Baseline Rate : 150 (Laura Cox, RN) FHR Baseline Changes: No Baseline Change (Laura Cox, RN) Variability: Moderate 6-25 bpm (Laura Cox, RN) Accelerations: 15X15 (Laura Cox, RN) Decelerations: Early (Laura Cox, RN) Pitocin (milliunit): Pitocin Remains (milliunits) @ (Annotations: 14) (Laura Cox, RN) Datetime: 01/06/2017 16:28 Patient Position/Activity: Left Lateral; Peanut Ball (Laura Cox, RN) Datetime: 01/06/2017 16:27 NBP Sys/Maria De Jesus/Mean (mmHg): 112 (QS system process) : 84 (QS system process) : 95 (QS system process) Pulse: 89 (QS system process) LaborFlag: Antepartum (QS system process) Datetime: 01/06/2017 16:22 NBP Sys/Maria De Jesus/Mean (mmHg): 118 (QS system process) : 63 (QS system process) : 83 (QS system process) Pulse: 90 (QS system process) LaborFlag: Antepartum (QS system process) Datetime: 01/06/2017 16:20 Dilatation (cm): 3.0 (Laura Cox RN) Effacement (%): 80 (Laura Cox RN) Station: -2 (Laura Cox RN) Exam by: Pavithra Cox RN (Laura Cox RN) Datetime: 01/06/2017 16:19 I/O Interventions: Minor Cath Inserted (Laura Cox, RN) Datetime: 01/06/2017 16:15 Monitor Mode: External (Laura Cox RN) Frequency (min): 1-4 (Laura Cox RN) Quality: Mild/Moderate (Laura Cox RN) Duration (sec): 70-90 (Laura Cox RN) Resting Tone (Palpate): Relaxed (Laura Cox RN) Comments: UTD, Pt sitting for epidural. (Laura Cox RN) Pitocin (milliunit): Pitocin Increased to (milliunits) @ (Annotations: 14) (Laura Cox RN) Datetime: 01/06/2017 16:14 NBP Sys/Maria De Jesus/Mean (mmHg): 119 (QS system process) NBP Sys/Maria De Jesus/Mean (mmHg): 112 (QS system process) : 65 (QS system process) : 73 (QS system process) : 85 (QS system process) : 84 (QS system process) Pulse: 98 (QS system process) Pulse: 114 (QS system process) LaborFlag: Antepartum (QS system process) Datetime: 01/06/2017 16:12 NBP Sys/Maria De Jesus/Mean (mmHg): 118 (QS system process) : 71 (QS system process) : 89 (QS system process) Pulse: 86 (QS system process) LaborFlag: Antepartum (QS system process) Datetime: 01/06/2017 16:11 NBP Sys/Maria De Jesus/Mean (mmHg): 115 (QS system process) : 73 (QS system process) : 90 (QS system process) Pulse: 88 (QS system process) Pulse: 89 (QS system process) SpO2 (%): 100 (QS system process) Epidural Procedure: Loading Dose (Laura Cox RN) LaborFlag: Antepartum (QS system process) Datetime: 01/06/2017 16:09 NBP Sys/Maria De Jesus/Mean (mmHg): 134 (QS system process) : 76 (QS system process) : 98 (QS system process) Pulse: 136 (QS system process) Respirations: 16 (Laura Cox RN) Pain Scale: 3 (Laura Cox RN) Pain Presence: Intermittent (Laura Cox RN) Pain Type: Contraction; Pressure (Laura Cox RN) Pain Location: Abdomen (Laura Cox RN) Pain Goal: 0 (Laura Cox RN) Pain Relief Measures: Comfort Measures (Laura Cox RN) Pain Coping: Breathing Through Contractions; Requesting Pain Medication or Epidural (Laura Cox RN) Epidural Procedure: Cath Placed (Laura Cox RN) Epidural Procedure: Test Dose (Laura Cox RN) LaborFlag: Antepartum (QS system process) Datetime: 01/06/2017 16:07 Procedure Verify: Correct Patient Identity; Correct Side and Site are Marked; Accurate Procedure Consent Form; Agreement on Procedure to be Done; Correct Patient Position; Relevant Images and Results are Properly Labeled and Displayed; Addressed Need to Administer Antibiotics or Fluids for Irrigation; Safety Precautions Based on Patient History or Medication Use (Laura Cox RN) Anesthesia Plans: Epidural (Laura Cox RN) Epidural Positioning: Sitting (Laura Cox RN) Datetime: 01/06/2017 16:06 Pulse: 116 (QS system process) SpO2 (%): 100 (QS system process) LaborFlag: Antepartum (QS system process) Datetime: 01/06/2017 16:05 Procedure Verify: Correct Patient Identity; Correct Side and Site are Marked; Accurate Procedure Consent Form; Agreement on Procedure to be Done; Correct Patient Position; Relevant Images and Results are Properly Labeled and Displayed; Addressed Need to Administer Antibiotics or Fluids for Irrigation; Safety Precautions Based on Patient History or Medication Use (Laura Cox RN) Anesthesia Plans: Epidural (Laura Cox RN) Epidural Positioning: Sitting (Laura Cox RN) Datetime: 01/06/2017 16:00 Monitor Mode: External (Laura Cox RN) Frequency (min): 1-4 (Laura Cox RN) Quality: Mild/Moderate (Laura Cox RN) Duration (sec): 50-80 (Laura Cox RN) Resting Tone (Palpate): Relaxed (Laura Cox RN) Monitor Mode: External US (Laura Cox RN) FHR Baseline Rate : 145 (Laura Cox RN) FHR Baseline Changes: No Baseline Change (Laura Cox RN) Variability: Moderate 6-25 bpm (Laura Cox RN) Accelerations: 15X15 (Laura Cox RN) Decelerations: None (Laura Cox RN) Pitocin (milliunit): Pitocin Remains (milliunits) @ (Annotations: 10) (Laura Cox RN)
[2017-01-06] MEDS ORDERED: DEXTROSE 5%-LACTATED RINGERS 250 ML IV PRN (19:31)
--- NOTE | 2017-01-06 20:00 | L&D Flow Sheet ---
LD Flowsheet Datetime Report Generated by CPN: 01/06/2017 20:00 Datetime: 01/06/2017 19:52 NBP Sys/Maria De Jesus/Mean (mmHg): 131 (QS system process) : 59 (QS system process) : 85 (QS system process) Pulse: 91 (QS system process) LaborFlag: Antepartum (QS system process) Datetime: 01/06/2017 19:36 Level of Consciousness: Fully Conscious (Regi Field, RN) DTR's/Clonus: DTRs 1+; No Clonus (Regi Field, RN) Headache: Denies (Regi Field, RN) Breath Sounds, Left: Clear and Equal (Regi Field, RN) Breath Sounds, Right: Clear and Equal (Regi Field, RN) Nausea/Vomiting: Denies (Regi Field, RN) RUQ Epigastric Pain: Denies (Regi Field, RN) Pitocin (milliunit): Pitocin Discontinued (Regi Field, RN) Datetime: 01/06/2017 19:35 NBP Sys/Maria De Jesus/Mean (mmHg): 114 (QS system process) : 66 (QS system process) : 84 (QS system process) Pulse: 85 (QS system process) LaborFlag: Antepartum (QS system process) Datetime: 01/06/2017 19:28 Pitocin (milliunit): Pitocin Discontinued (Regi Field, RN) Datetime: 01/06/2017 19:20 NBP Sys/Maria De Jesus/Mean (mmHg): 110 (QS system process) : 70 (QS system process) : 82 (QS system process) Pulse: 85 (QS system process) LaborFlag: Antepartum (QS system process) Datetime: 01/06/2017 19:05 NBP Sys/Maria De Jesus/Mean (mmHg): 105 (QS system process) : 64 (QS system process) : 78 (QS system process) Pulse: 75 (QS system process) LaborFlag: Antepartum (QS system process) Datetime: 01/06/2017 19:00 Dilatation (cm): 3.0 (Regi Cox RN) Effacement (%): 90 (Regi Cox RN) Station: -1 (Regi Cox RN) Exam by: ZUHAIR Higginbotham (Regi Cox RN) Datetime: 01/06/2017 18:50 NBP Sys/Maria De Jesus/Mean (mmHg): 120 (QS system process) : 66 (QS system process) : 87 (QS system process) Pulse: 83 (QS system process) LaborFlag: Antepartum (QS system process) Datetime: 01/06/2017 18:45 Frequency (min): UTD due to maternal position (Laura Cox RN) Monitor Mode: External US (Laura Cox RN) FHR Baseline Rate : 125 (Laura Cox RN) FHR Baseline Changes: No Baseline Change (Laura Cox RN) Variability: Moderate 6-25 bpm (Laura Cox RN) Accelerations: 15X15 (Laura Cox RN) Decelerations: None (Laura Cox RN) Pitocin (milliunit): Pitocin Remains (milliunits) @ (Annotations: 20) (Laura Marhefka, RN) Datetime: 01/06/2017 18:36 NBP Sys/Maria De Jesus/Mean (mmHg): 130 (QS system process) : 75 (QS system process) : 86 (QS system process) Pulse: 94 (QS system process) Respirations: 16 (Laura Marhefka, RN) Temperature (F): 97.2 (Laura Marhefka, RN) Temperature (C): 36.2 (QS system process) Temperature Route: Oral (Laura Marhefka, RN) LaborFlag: Antepartum (QS system process) Datetime: 01/06/2017 18:30 Monitor Mode: External (Laura Marhefka, RN) Frequency (min): 2-3 (Laura Marhefka, RN) Quality: Moderate (Laura Marhefka, RN) Duration (sec): 40-70 (Laura Marhefka, RN) Resting Tone (Palpate): Relaxed (Laura Marhefka, RN) Monitor Mode: External US (Laura Cox RN) FHR Baseline Rate : 125 (Laura Cox RN) FHR Baseline Changes: No Baseline Change (Laura Cox RN) Variability: Moderate 6-25 bpm (Laura Cox RN) Accelerations: 15X15 (Laura Cox RN) Decelerations: None (Laura Cox RN) Pitocin (milliunit): Pitocin Remains (milliunits) @ (Annotations: 20) (Laura Cox RN) Datetime: 01/06/2017 18:24 Patient Position/Activity: Hands-Knees (Laura Cox RN) Datetime: 01/06/2017 18:21 NBP Sys/Maria De Jesus/Mean (mmHg): 89 (QS system process) : 54 (QS system process) : 66 (QS system process) Pulse: 90 (QS system process) Pain Assessment Comments: Pt states she is feeling more pressure with the contractions, but denies pain. (Laura Marhefka, RN) LaborFlag: Antepartum (QS system process) Datetime: 01/06/2017 18:15 Monitor Mode: External (Laura Marhefka, RN) Frequency (min): 1-4 (Laura Marhefka, RN) Quality: Moderate (Laura Marhefka, RN) Duration (sec): 50-80 (Laura Marhefka, RN) Resting Tone (Palpate): Relaxed (Laura Marhefka, RN) Monitor Mode: External US (Laura Marhefka, RN) FHR Baseline Rate : 125 (Laura Marhefka, RN) FHR Baseline Changes: No Baseline Change (Laura Marhefka, RN) Variability: Moderate 6-25 bpm (Laura Marhefka, RN) Accelerations: 15X15 (Laura Marhefka, RN) Decelerations: None (Laura Marhefka, RN) Pitocin (milliunit): Pitocin Remains (milliunits) @ (Annotations: 20) (Laura Marhefka, RN) Datetime: 01/06/2017 18:06 NBP Sys/Maria De Jesus/Mean (mmHg): 89 (QS system process) : 54 (QS system process) : 67 (QS system process) Pulse: 76 (QS system process) LaborFlag: Antepartum (QS system process) Datetime: 01/06/2017 18:00 Monitor Mode: External (Laura Cox RN) Frequency (min): 1-5 (Laura Cox RN) Quality: Moderate (Laura Cox RN) Duration (sec): 50-90 (Laura Cox RN) Resting Tone (Palpate): Relaxed (Laura Cox RN) Monitor Mode: External US (Laura Cox RN) FHR Baseline Rate : 130 (Laura Cox RN) FHR Baseline Changes: No Baseline Change (Laura Cox RN) Variability: Moderate 6-25 bpm (Laura Cox RN) Accelerations: 15X15 (Laura Cox RN) Decelerations: None (Laura Cox RN) Pitocin (milliunit): Pitocin Remains (milliunits) @ (Annotations: 20) (Laura Cox RN)
[2017-01-06] MEDS ORDERED: LIDOCAINE 2%/EPINEPHRINE INJ 20 ML VIAL ONE (21:57)
--- NOTE | 2017-01-06 22:00 | L&D Flow Sheet ---
LD Flowsheet Datetime Report Generated by CPN: 01/06/2017 22:00 Datetime: 01/06/2017 21:50 NBP Sys/Maria De Jesus/Mean (mmHg): 121 (QS system process) : 74 (QS system process) : 92 (QS system process) Pulse: 126 (QS system process) LaborFlag: Antepartum (QS system process) Datetime: 01/06/2017 21:45 Pitocin (milliunit): Pitocin Increased to (milliunits) @ 16 (Regi Field, RN) Datetime: 01/06/2017 21:39 Dilatation (cm): 5.0 (Regi Cox, RN) Effacement (%): 90 (Regi Cox, RN) Station: -1 (Regi Cox, RN) Exam by: J.Field RN (Regi Cox, RN) Datetime: 01/06/2017 21:35 NBP Sys/Maria De Jesus/Mean (mmHg): 134 (QS system process) : 77 (QS system process) : 100 (QS system process) Pulse: 113 (QS system process) LaborFlag: Antepartum (QS system process) Datetime: 01/06/2017 21:20 NBP Sys/Maria De Jesus/Mean (mmHg): 121 (QS system process) : 75 (QS system process) : 91 (QS system process) Pulse: 109 (QS system process) LaborFlag: Antepartum (QS system process) Datetime: 01/06/2017 21:15 Monitor Mode: External; Palpation (Regi Field, RN) Frequency (min): 2-4 (Regi Field, RN) Quality: Moderate to Strong (Regi Field, RN) Duration (sec): 60-100 (Regi Field, RN) Resting Tone (Palpate): Relaxed (Regi Field, RN) Monitor Mode: External US (Regi Field, RN) FHR Baseline Rate : 130 (Regi Field, RN) Variability: Moderate 6-25 bpm (Regi Field, RN) Accelerations: 15X15 (Regi Field, RN) Decelerations: Variable (Regi Field, RN) Pitocin (milliunit): Pitocin Remains (milliunits) @ 12 (Regi Field, RN) Datetime: 01/06/2017 21:06 NBP Sys/Maria De Jesus/Mean (mmHg): 115 (QS system process) : 55 (QS system process) : 74 (QS system process) Pulse: 100 (QS system process) LaborFlag: Antepartum (QS system process) Datetime: 01/06/2017 21:04 Patient Position/Activity: Tailors (Regi Field, RN) Datetime: 01/06/2017 21:01 Pitocin (milliunit): Pitocin Increased to (milliunits) @ 12 (Regi Field, RN) Datetime: 01/06/2017 21:00 Monitor Mode: External; Palpation (Regi Field, RN) Frequency (min): 3-4 (Regi Field, RN) Quality: Moderate to Strong (Regi Field, RN) Duration (sec): 50-80 (Regi Field, RN) Resting Tone (Palpate): Relaxed (Regi Field, RN) Monitor Mode: External US (Regi Field, RN) FHR Baseline Rate : 125 (Regi Field, RN) Variability: Moderate 6-25 bpm (Regi Field, RN) Accelerations: 15X15 (Regi Field, RN) Decelerations: None (Regi Field, RN) Pitocin (milliunit): Pitocin Increased to (milliunits) @ 12 (Regi Field, RN) Datetime: 01/06/2017 20:50 NBP Sys/Maria De Jesus/Mean (mmHg): 99 (QS system process) : 53 (QS system process) : 69 (QS system process) Pulse: 112 (QS system process) LaborFlag: Antepartum (QS system process) Datetime: 01/06/2017 20:45 Monitor Mode: External; Palpation (Regi Field, RN) Frequency (min): 3-4 (Regi Field, RN) Quality: Moderate (Rgei Field, RN) Duration (sec): 70-100 (Regi Field, RN) Resting Tone (Palpate): Relaxed (Regi Field, RN) Monitor Mode: External US (Regi Field, RN) FHR Baseline Rate : 125 (Regi Field, RN) Variability: Moderate 6-25 bpm (Regi Field, RN) Accelerations: 15X15 (Regi Field, RN) Decelerations: None (Regi Field, RN) Pitocin (milliunit): Pitocin Remains (milliunits) @ 10 (Regi Field, RN) Datetime: 01/06/2017 20:36 NBP Sys/Maria De Jesus/Mean (mmHg): 100 (QS system process) : 56 (QS system process) : 70 (QS system process) Pulse: 95 (QS system process) LaborFlag: Antepartum (QS system process) Datetime: 01/06/2017 20:34 Patient Position/Activity: Peanut Ball; Right Extreme (Regi Cox, RN) Datetime: 01/06/2017 20:32 Pitocin (milliunit): Pitocin Started (milliunits) @ 10; Pitocin 20 Units in 1000ml NS (Regi Field, RN) Datetime: 01/06/2017 20:30 Monitor Mode: External; Palpation (Regi Cox, RN) Frequency (min): 4 (Regi Cox RN) Quality: Moderate (Regi Cox RN) Duration (sec): 70-140 (Regi Cox, RN) Resting Tone (Palpate): Relaxed (Regi Cox, RN) Monitor Mode: External US (Regi Cox RN) FHR Baseline Rate : 125 (Regi Field, RN) Variability: Moderate 6-25 bpm (Regi , RN) Accelerations: 15X15 (Regi , RN) Decelerations: None (Regi Field, RN) Datetime: 01/06/2017 20:20 NBP Sys/Maria De Jesus/Mean (mmHg): 115 (QS system process) : 65 (QS system process) : 81 (QS system process) Pulse: 96 (QS system process) LaborFlag: Antepartum (QS system process) Datetime: 01/06/2017 20:15 Monitor Mode: External; Palpation (Regi Cox, RN) Frequency (min): 4-4.5 (Regi Cox, RN) Quality: Moderate (Regi Cox, RN) Duration (sec): 80-150 (Regi Cox, RN) Resting Tone (Palpate): Relaxed (Regi Cox, RN) Monitor Mode: External US (Regi Cox, RN) FHR Baseline Rate : 125 (Regi , RN) Variability: Moderate 6-25 bpm (Regi Field, RN) Accelerations: 15X15 (Regi Cox RN) Decelerations: None (Regi Cox, RN) Datetime: 01/06/2017 20:05 NBP Sys/Maria De Jesus/Mean (mmHg): 121 (QS system process) : 66 (QS system process) : 85 (QS system process) Pulse: 85 (QS system process) LaborFlag: Antepartum (QS system process) Datetime: 01/06/2017 20:00 Monitor Mode: External; Palpation (Regi Cox RN) Frequency (min): 1.5-5.5 (Regi Cox RN) Quality: Moderate (Regi Cox RN) Duration (sec): 50-110 (Regi Cox RN) Resting Tone (Palpate): Relaxed (Regi Cox RN) Monitor Mode: External US (Regi Cox RN) FHR Baseline Rate : 125 (Regi Cox RN) Variability: Moderate 6-25 bpm (Regi Cox, RN) Accelerations: 15X15 (Regi Cox RN) Decelerations: None (Reig Cox RN)
[2017-01-06] MEDS ORDERED: SODIUM BICARBONATE 8.4% INJ 50 MEQ/50 ML DISP.SYRIN ONE (22:33)
[2017-01-06] MEDS ORDERED: MISOPROSTOL 0.2 MG TABLET ONE (23:37)
[2017-01-06] MEDS ORDERED: LIDOCAINE 1% INJ-PF (10 MG/ML) 30 ML SDV ONE (23:37)
[2017-01-07] MEDS ORDERED: METHYLERGONOVINE MALEATE INJ/PF 0.2 MG/1 ML AMPULE ONE (02:38)
[2017-01-07 02:44] LABS: ARTERIAL BLOOD BASE EXCESS -5.3 mmol/L; ARTERIAL BLOOD O2 SATURATION 46.5 % (94-98)
[2017-01-07] MEDS ORDERED: ACETAMINOPHEN WITH CODEINE #3 TABLET PO PRN ×2 (03:07)
[2017-01-07] MEDS ORDERED: DIPH/PERTUSS(ACELL)/TETANUS VAC/PF 0.5 ML SYR (>=10YO) IM PRN (03:07)
[2017-01-07] MEDS ORDERED: MISOPROSTOL 0.2 MG TABLET PR ONE (03:07)
[2017-01-07] MEDS ORDERED: DIBUCAINE 1% OINTMENT 28 GM TP PRN (03:07)
[2017-01-07] MEDS ORDERED: BENZOCAINE/MENTHOL AEROSOL SPRAY 56 ML TOP PRN (03:07)
[2017-01-07] MEDS ORDERED: OXYTOCIN/NORMAL SALINE 20 UNIT/1,000 ML RTUINJ IV PRN (03:07)
[2017-01-07] MEDS ORDERED: MEASLES,MUMPS&RUBELLA VACC/PF 0.5 ML VIAL SUBCUT PRN (03:07)
[2017-01-07] MEDS ORDERED: IBUPROFEN 800 MG TABLET ONE (03:59)
[2017-01-07] MEDS: RINGERS SOLUTION,LACTATED 1,000 ML IV PRN (04:12)
[2017-01-07] MEDS: FENTANYL/BUPIVACAINE/NS/PF 100 ML EPI PRN (04:12)
--- NOTE | 2017-01-07 04:22 | Delivery Summary ---
Del Sum A-C Datetime Report Generated by CPN: 01/07/2017 04:22 ADMISSION DATA Chief Complaint: Scheduled Induction of Labor Indication for Induction: Macrosomia; Polyhydramnios Admission Impression: Term, Intrauterine ; Induction of Labor Admit Provider Comments: TErm induction for polyhydramnios. GBS neg Cervical Ripening tonight DELIVERY PERSONNEL Delivery Doctor:: Lien Ramirez CNM Labor and Delivery Nurse:: Regi Cox RNglass scullion Nurse:: Ilana Jackson RN Nursery Nurse:: Antonia Alex RN Timekeeper Supervisor/PUBLIC HEALTH NUTRITIONIST: Lisa Swanson, CNA MATERNAL INFORMATION Delivery Anesthesia: Local; Epidural Medications After Delivery: Pitocin Drip 20 Units/1000ml NSS; Methergine 0.2mg IM; Other-Please Comment Meds After Delivery Comment: cytotec 1000 mcg per rectum Provider Comments: viable female from OA to NADIYA over ML epis, small epis made due to head on perineum for prolonged period of time, epis made and delivery with next contraction, baby placed on mothers abd, cord cut and clamped after 2 minutes , father cut cord, spont delivery of grossly nl intact placenta, 3 VC, EBL 00cc, uterine atony, Pitocin, massage, cytotec 1000mcg via rectum, and methergine, bleeding resolved, FFFM epis repaired without difficulty, see above, Used Xylocaine 1% Baby and mom in recovery in stable condition, vs stable LABOR SUMMARY EDC: 01/12/2017 00:00 No. Babies in Womb: 1 Attempted: No Labor Anesthesia: Epidural LABOR INFORMATION Reason for Induction: Other Reason for Induction- Other: uterine anomaly Onset of Labor: 01/06/2017 21:39 Complete Dilatation: 01/07/2017 00:29 Cervical Ripening Agents: Cytotec @ 25 MCG PV Group B Beta Strep: Negative Steroids Given: None Reason Steroids Not Administered: Not Applicable MEMBRANES Membranes Rupture Method: Artificial Rupture of Membranes: 01/06/2017 14:07 Length of Rupture (hr): 12.30 Amniotic Fluid Color: Clear Amniotic Fluid Amount: Large Amniotic Fluid Odor: Normal STAGES OF LABOR Stage 1 hr: 2 Stage 1 min: 50 Stage 2 hr: 1 Stage 2 min: 56 Stage 3 hr: 0 Stage 3 min: 8 Total Time in Labor hr: 4 Total Time in Labor min: 54 VAGINAL DELIVERY Episiotomy: Median Laceration Extension: N/A Laceration Type: None Laceration Repair Note: Epis repaired with 2-0 chromic without difficulty, 1% Xylociane used for repair Sponge Count Correct: Yes Sharps Count Correct: Yes CSECTION DELIVERY Primary Indication: N/A Secondary Indication: N/A CSection Incidence: N/A Labor: N/A Elective: N/A CSection Incision: N/A BABY A INFORMATION Delivery Date/Time: 01/07/2017 02:25 Method of Delivery: Vaginal Born in Route : No : N/A Forceps: N/A Vacuum Extraction: N/A Shoulder Dystocia : No PRESENTATION/POSITION BABY A Presentation: Breech Cephalic Presentation: Vertex Vertex Position: Left Occipital Anterior Breech Presentation: N/A PLACENTA INFORMATION BABY A Placenta Delivery Time : 01/07/2017 02:33 Placenta Method of Delivery: Spontaneous Placenta Status: Delivered SCORES BABY A Heart Rate 1 min: >100 bpm Resp Effort 1 min: Good Cry Reflex Irritability 1 min: Cough or Sneeze or Pulls Away Muscle Tone 1 min: Active Motion Color 1 min: Body [place], Extremities Blue Resuscitation Effort 1 min: Tactile Stimulation SCORE 1 MIN: 9 Heart Rate 5 min: >100 bpm Resp Effort 5 min: Good Cry Reflex Irritability 5 min: Cough or Sneeze or Pulls Away Muscle Tone 5 min: Active Motion Color 5 min: Body [place], Extremities Blue Resuscitation Effort 5 min: Tactile Stimulation SCORE 5 MIN: 9 INFANT INFORMATION BABY A Gestational Age at Delivery: 39.2 Gestational Status: Full Term- 39- 40.6 Weeks Outcome : Liveborn Infant Condition : Stable Infant Sex: Female IDENTIFICATION BABY A Verification Date/Time: 01/07/2017 02:35 ID Band Number: [id number] Mother's Name Verified: Yes RN Verifying Infant: R UZHAIR JacksonC Additional Verifying Personnel: Evelia Byrd RN WEIGHT/LENGTH BABY A Birthweight (gm): 3710 Infant Weight (lb): 8 Infant Weight (oz): 3 Infant Length (in): 21.00 Infant Length (cm): 53.34 CORD INFORMATION BABY A No. Cord Vessels: 3 Nuchal Cord : N/A Cord Blood Taken: Yes-For Eval (Mom's Blood Type - or O+) ASSESSMENT BABY A Complications: None Physical Findings at Delivery: Within Normal Limits Infant Respirations: Appears Normal Skin to Skin: Yes Care By: ZUHAIR White Transferred To: Remains with Mother BABY B INFORMATION : N/A
--- NOTE | 2017-01-07 04:54 | Admission Physical ---
Datetime Report Generated by CPN: 01/07/2017 04:53 CURRENT ADMISSION Hx Assessment: The History has been Reviewed and is Current Chief Complaint: Scheduled Induction of Labor Indication for Induction: Macrosomia; Polyhydramnios Admit Plan: Admit to Unit; Initiate Labor Induction Protocol ALLERGIES Medication Allergies: No Medication Allergies: No Known Allergies (12/18/2016) Medication Allergies: No Known Allergies (11/29/2016) Medication Allergies: No Known Allergies (03/03/2016) Latex: No Latex Allergies Food Allergies: none Environmental Allergies: none OBSTETRICAL HISTORY EDC: 01/12/2017 00:00 : 1 Para: 0 Para: 0 Term: 0 : 0 SAB: 0 IAB: 0 Ectopic: 0 Livin Cesareans: 0 VBACs: 0 Multiple Births: 0 Gestational Diabetes: No Rh Sensitization: No Incompetent Cervix: No FANNY: No Infertility: No ART Treatment: No Uterine Anomaly: Yes IUGR: No Hx Previous C/S: No Macrosomia: No Hx Loss/Stillborn: No PIH: No Hx : No Placenta Previa/Abruption: No Depression/PP Depression: No PTL/PROM: No Post Hemorrhage: No Current Procedures: Ultrasound; NST Obstetrical History Comments: G1: Current, increased jorje 23cm 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 [employer] Surgery: No Heart Disease: No Hosp/Surgery: Yes Autoimmune Disorder: No Anesthetic Complications: No Kidney Disease: No Abnormal Pap Smear: No Neuro/Epilepsy: No Psychiatric Disorders: No Other Medical Diseases: No Hepatitis/Liver Disease: No Significant Family History: No Varicosities/Phlebitis: No Trauma/Violence : No Thyroid Dysfunction: No Medical History Comments: Hospitalizations: For ovarian cysts 2005, 2006, 2010 INFECTIOUS HISTORY Gonorrhea: No Genital Herpes: No Chlamydia: No Tuberculosis: No Syphilis: No Hepatitis: No HIV/AIDS Exposure: No Rash or Viral Illness: No HPV: No PHYSICAL EXAM General: Normal HEENT: Deferred Neurologic: Deferred Thyroid: Deferred Heart: Normal Lungs: Normal Breast: Deferred Back: Deferred Abdomen: Normal Genitourinary Exam: Normal Extremities: Normal DTRs: Normal Pelvic Type: Adequate Vital Signs: Reviewed; Within Normal Limits VAGINAL EXAM Dilatation: 3 Effacement: 70 Station: -2 MEMBRANES Membranes: Ruptured Membranes: Intact FETUS A EGA: 39.1 FHR- Baseline: 130 Variability: Moderate 6-25bpm Accelerations: 15X15 Decelerations: None FHR Category: Category I Admit Comment: TErm induction for polyhydramnios. GBS neg Cervical Ripening tonight PLANS FOR LABOR AND DELIVERY Labor and Delivery: Other, Specify Pain Management: Epidural Feeding Preference: Breast Benefit of Breast Feed Discussed: Yes Circumcision: N/A INFORMED CONSENT Informed Consent Obtained: Vaginal Delivery; Risks, Benefits and Alternatives Discussed Informed Consent Obtained: Vaginal Delivery; Section Delivery; Induction of Labor; Risks, Benefits and Alternatives Discussed Signature: with User ID: [email or web address]
[2017-01-07] MEDS: IBUPROFEN 800 MG TABLET PO SCH ×3 (05:46→21:53)
--- NOTE | 2017-01-07 07:00 | L&D Flow Sheet ---
LD Flowsheet Datetime Report Generated by CPN: 01/07/2017 07:00 Datetime: 01/07/2017 04:20 Stage of : Recovery (Regi Cox RN) NBP Sys/Maria De Jesus/Mean (mmHg): 105 (QS system process) : 57 (QS system process) : 75 (QS system process) Pulse: 82 (QS system process) Pain Scale: 2 (Regi Cox RN) Pain Presence: Constant (Regi Cox RN) Pain Type: Burning (Regi Cox RN) Pain Location: Perineum (Regi Cox RN) Pain Goal: 0 (Regi Cox RN) Pain Relief Measures: Comfort Measures (Regi Cox RN) Datetime: 01/07/2017 04:05 Stage of : Recovery (Regi Cox RN) NBP Sys/Maria De Jesus/Mean (mmHg): 103 (QS system process) : 56 (QS system process) : 76 (QS system process) Pulse: 75 (QS system process) Temperature (F): 98.1 (Regi Cox RN) Temperature (C): 36.7 (QS system process) Temperature Route: Oral (Regi Cox RN) Pain Scale: 2 (Regi Cox RN) Pain Presence: Constant (Regi Cox RN) Pain Type: Burning (Regi Cox RN) Pain Location: Perineum (Regi Cox RN) Pain Goal: 0 (Regi Cox RN) Pain Relief Measures: Comfort Measures (Regi Cox, ) Datetime: 01/07/2017 03:50 [facility] : [facility] Datetime: 01/07/2017 03:35 Stage of : Recovery (Regi Cox, RN) Datetime: 01/07/2017 03:20 Stage of : Recovery (Regi Cox, RN) NBP Sys/Maria De Jesus/Mean (mmHg): 108 (QS system process) : 69 (QS system process) : 84 (QS system process) Pulse: 83 (QS system process) Datetime: 01/07/2017 03:05 Stage of : Recovery (Regi Cox, RN) NBP Sys/Maria De Jesus/Mean (mmHg): 114 (QS system process) : 63 (QS system process) : 81 (QS system process) Pulse: 87 (QS system process) Datetime: 01/07/2017 02:50 Stage of : Recovery (Regi Field, RN) NBP Sys/Maria De Jesus/Mean (mmHg): 108 (QS system process) : 53 (QS system process) : 77 (QS system process) Pulse: 91 (QS system process) Datetime: 01/07/2017 02:43 NBP Sys/Maria De Jesus/Mean (mmHg): 114 (QS system process) : 55 (QS system process) : 75 (QS system process) Pulse: 102 (QS system process) Datetime: 01/07/2017 02:34 Stage of : Recovery (Regi Field, RN) Datetime: 01/07/2017 02:15 Monitor Mode: External; Palpation (Regi Field, RN) Frequency (min): 2.5-4 (Regi Field, RN) Quality: Moderate to Strong (Regi Field, RN) Duration (sec): 60-80 (Regi Field, RN) Resting Tone (Palpate): Relaxed (Regi Field, RN) Monitor Mode: External US (Regi Field, RN) FHR Baseline Rate : 150 (Regi Field, RN) Variability: Moderate 6-25 bpm (Regi Field, RN) Accelerations: None (Regi Field, RN) Decelerations: Late; Variable (Regi Field, RN) Pitocin (milliunit): Pitocin Remains (milliunits) @ 22 (Regi Field, RN) Datetime: 01/07/2017 02:06 NBP Sys/Maria De Jesus/Mean (mmHg): 118 (QS system process) : 56 (QS system process) : 81 (QS system process) Pulse: 110 (QS system process) LaborFlag: Antepartum (QS system process) Datetime: 01/07/2017 02:00 Monitor Mode: External; Palpation (Regi Field, RN) Frequency (min): 2-4.5 (Regi Field, RN) Quality: Moderate to Strong (Regi Field, RN) Duration (sec): 60-80 (Regi Field, RN) Resting Tone (Palpate): Relaxed (Regi Field, RN) Monitor Mode: External US (Regi Field, RN) FHR Baseline Rate : 145 (Regi Field, RN) Variability: Moderate 6-25 bpm (Regi Field, RN) Accelerations: 15X15 (Regi Field, RN) Decelerations: Late; Variable (Regi Field, RN) Pitocin (milliunit): Pitocin Remains (milliunits) @ 22 (Regi Field, RN) Datetime: 01/07/2017 01:50 NBP Sys/Maria De Jesus/Mean (mmHg): 105 (QS system process) : 54 (QS system process) : 77 (QS system process) Pulse: 96 (QS system process) LaborFlag: Antepartum (QS system process) Datetime: 01/07/2017 01:45 Frequency (min): 2-3.5 (Regi Field, RN) Duration (sec): 60-80 (Regi Field, RN) Monitor Mode: External US (Regi Field, RN) FHR Baseline Rate : 145 (Regi Field, RN) Variability: Moderate 6-25 bpm (Regi Field, RN) Accelerations: None (Regi Field, RN) Decelerations: Late; Variable (Regi Field, RN) Pitocin (milliunit): Pitocin Remains (milliunits) @ 22 (Regi Field, RN) Datetime: 01/07/2017 01:35 NBP Sys/Maria De Jesus/Mean (mmHg): 118 (QS system process) : 57 (QS system process) : 82 (QS system process) Pulse: 120 (QS system process) LaborFlag: Antepartum (QS system process) Datetime: 01/07/2017 01:30 Monitor Mode: External; Palpation (Regi Field, RN) Frequency (min): 2-3.5 (Regi Field, RN) Quality: Moderate to Strong (Regi Field, RN) Duration (sec): 60-90 (Regi Field, RN) Resting Tone (Palpate): Relaxed (Regi Field, RN) Monitor Mode: External US (Regi Field, RN) FHR Baseline Rate : 145 (Regi Field, RN) Variability: Moderate 6-25 bpm (Regi Field, RN) Accelerations: None (Regi Field, RN) Decelerations: Late; Variable (Regi Field, RN) Pitocin (milliunit): Pitocin Remains (milliunits) @ 22 (Regi Field, RN) Datetime: 01/07/2017 01:21 NBP Sys/Maria De Jesus/Mean (mmHg): 119 (QS system process) : 69 (QS system process) : 86 (QS system process) Pulse: 120 (QS system process) LaborFlag: Antepartum (QS system process) Datetime: 01/07/2017 01:15 Monitor Mode: External; Palpation (Regi Field, RN) Frequency (min): 2-4 (Regi Field, RN) Quality: Moderate to Strong (Regi Field, RN) Duration (sec): 60-90 (Regi Field, RN) Resting Tone (Palpate): Relaxed (Regi Field, RN) Monitor Mode: External US (Regi Field, RN) FHR Baseline Rate : 145 (Regi Field, RN) Variability: Moderate 6-25 bpm (Regi Field, RN) Accelerations: None (Regi Field, RN) Decelerations: Late; Variable (Regi Field, RN) Pitocin (milliunit): Pitocin Remains (milliunits) @ 22 (Regi Field, RN) Datetime: 01/07/2017 01:05 NBP Sys/Maria De Jesus/Mean (mmHg): 108 (QS system process) : 55 (QS system process) : 74 (QS system process) Pulse: 117 (QS system process) LaborFlag: Antepartum (QS system process) Datetime: 01/07/2017 01:00 Monitor Mode: External; Palpation (Regi Field, RN) Frequency (min): 2-3.5 (Regi Field, RN) Quality: Moderate to Strong (Regi Field, RN) Duration (sec): 60-80 (Regi Field, RN) Resting Tone (Palpate): Relaxed (Regi Field, RN) Monitor Mode: External US (Regi Field, RN) FHR Baseline Rate : 145 (Regi Field, RN) Variability: Moderate 6-25 bpm (Regi Field, RN) Accelerations: None (Regi Field, RN) Decelerations: Late; Variable (Regi Field, RN) Pitocin (milliunit): Pitocin Remains (milliunits) @ 22 (Regi Field, RN) Datetime: 01/07/2017 00:54 Pushing: Coached on Pushing; Urge to Push (Regi Field, RN) Pushing Position: Pushing with Contractions (Regi Field, RN) Datetime: 01/07/2017 00:51 NBP Sys/Maria De Jesus/Mean (mmHg): 106 (QS system process) : 56 (QS system process) : 74 (QS system process) Pulse: 116 (QS system process) LaborFlag: Antepartum (QS system process) Datetime: 01/07/2017 00:45 Monitor Mode: External; Palpation (Regi Cox, RN) Frequency (min): 2-3 (Regi Cox, RN) Quality: Moderate to Strong (Regi , RN) Duration (sec): 60-80 (Regi Field, RN) Resting Tone (Palpate): Relaxed (Regi Field, RN) Monitor Mode: External US (Regi Field, RN) FHR Baseline Rate : 150 (Regi Field, RN) Variability: Moderate 6-25 bpm (Regi Field, RN) Accelerations: 15X15 (Regi Field, RN) Decelerations: Late; Variable (Regi Field, RN) Pitocin (milliunit): Pitocin Remains (milliunits) @ 22 (Regi Cox, RN) Datetime: 01/07/2017 00:35 NBP Sys/Maria De Jesus/Mean (mmHg): 117 (QS system process) : 56 (QS system process) : 80 (QS system process) Pulse: 133 (QS system process) LaborFlag: Antepartum (QS system process) Datetime: 01/07/2017 00:30 Monitor Mode: External; Palpation (Regi Cox, RN) Frequency (min): 2-3 (Regi Cox, RN) Quality: Moderate to Strong (Regi Cox, RN) Duration (sec): 60-110 (Regi Cox, RN) Resting Tone (Palpate): Relaxed (Regi Cox, RN) Monitor Mode: External US (Regi Cox, RN) FHR Baseline Rate : 150 (Regi , RN) Variability: Moderate 6-25 bpm (Regi Field, RN) Accelerations: 10X10 (Regi Field, RN) Decelerations: Late; Variable (Regi Cox, RN) Pitocin (milliunit): Pitocin Remains (milliunits) @ 22 (Regi Cox, RN) Datetime: 01/07/2017 00:29 Dilatation (cm): 10.0 (Regi Cox, RN) Effacement (%): 100 (Regi Cox, RN) Station: 1 (Regi Cox, RN) Exam by: Lien Ramirez CNM (Regi Cox, RN) Pushing: Urge to Push; Involuntary Pushing (Regi Cox, RN) Datetime: 01/07/2017 00:21 NBP Sys/Maria De Jesus/Mean (mmHg): 123 (QS system process) : 59 (QS system process) : 81 (QS system process) Pulse: 117 (QS system process) LaborFlag: Antepartum (QS system process) Datetime: 01/07/2017 00:15 Monitor Mode: External; Palpation (Regi Field, RN) Frequency (min): 2-3.5 (Regi Cox, RN) Quality: Moderate to Strong (Regi Field, RN) Duration (sec): 70-90 (Regi Field, RN) Resting Tone (Palpate): Relaxed (Regi Field, RN) Monitor Mode: External US (Regi Cox, RN) FHR Baseline Rate : 150 (Regi Field, RN) Variability: Moderate 6-25 bpm (Regi Field, RN) Accelerations: 10X10 (Rgei Field, RN) Decelerations: Late; Variable (Regi Field, RN) Pitocin (milliunit): Pitocin Remains (milliunits) @ 22 (Regi Field, RN) Datetime: 01/07/2017 00:07 NBP Sys/Maria De Jesus/Mean (mmHg): 118 (QS system process) : 63 (QS system process) : 83 (QS system process) Pulse: 130 (QS system process) LaborFlag: Antepartum (QS system process) Datetime: 01/07/2017 00:05 Pushing: Urge to Push; Involuntary Pushing (Regi Field, RN) Datetime: 01/07/2017 00:00 Monitor Mode: External; Palpation (Regi Field, RN) Frequency (min): 2-3 (Regi Field, RN) Quality: Moderate to Strong (Regi Field, RN) Duration (sec): 60-80 (Regi Field, RN) Resting Tone (Palpate): Relaxed (Regi Field, RN) Monitor Mode: External US (Regi Field, RN) FHR Baseline Rate : 150 (Regi Field, RN) Variability: Moderate 6-25 bpm (Regi Field, RN) Accelerations: 15X15 (Regi Field, RN) Decelerations: Early; Variable (Regi Field, RN) Pitocin (milliunit): Pitocin Remains (milliunits) @ 22 (Regi Field, RN) Datetime: 01/06/2017 23:45 Monitor Mode: External; Palpation (Regi Field, RN) Frequency (min): 2-3 (Regi Field, RN) Quality: Moderate to Strong (Regi Field, RN) Duration (sec): 50-80 (Regi Field, RN) Resting Tone (Palpate): Relaxed (Regi Cox, RN) Monitor Mode: External US (Regi Field, RN) FHR Baseline Rate : 150 (Regi Field, RN) Variability: Moderate 6-25 bpm (Regi Field, RN) Accelerations: 15X15 (Regi Field, RN) Decelerations: Late; Variable (Regi Field, RN) Pitocin (milliunit): Pitocin Remains (milliunits) @ 22 (Regi Field, RN) Datetime: 01/06/2017 23:41 Dilatation (cm): 9.5 (Regi Field, RN) Effacement (%): 100 (Regi Cox, RN) Station: 1 (Regi Cox, RN) Exam by: ZUHAIR Au (Regi Field, RN) Datetime: 01/06/2017 23:35 NBP Sys/Maria De Jesus/Mean (mmHg): 112 (QS system process) : 56 (QS system process) : 80 (QS system process) Pulse: 131 (QS system process) LaborFlag: Antepartum (QS system process) Datetime: 01/06/2017 23:30 Monitor Mode: External; Palpation (Regi Cox, RN) Frequency (min): 2-3 (Regi Cox, RN) Quality: Moderate to Strong (Regi , RN) Duration (sec): 60-80 (Regi Field, RN) Resting Tone (Palpate): Relaxed (Regi Field, RN) Monitor Mode: External US (Regi Field, RN) FHR Baseline Rate : 150 (Regi Field, RN) Variability: Moderate 6-25 bpm (Regi Field, RN) Accelerations: 15X15 (Regi Field, RN) Decelerations: Late; Variable (Regi Field, RN) Pitocin (milliunit): Pitocin Remains (milliunits) @ 22 (Regi Field, RN) Datetime: 01/06/2017 23:25 Dilatation (cm): 8.0 (Regi Field, RN) Effacement (%): 100 (Regi Cox RN) Station: 1 (Regi Cox RN) Exam by: Dr. Ramos (Regi Cox RN) Datetime: 01/06/2017 23:20 NBP Sys/Maria De Jesus/Mean (mmHg): 118 (QS system process) : 58 (QS system process) : 83 (QS system process) Pulse: 136 (QS system process) LaborFlag: Antepartum (QS system process) Datetime: 01/06/2017 23:15 Monitor Mode: External; Palpation (Regi Cox RN) Frequency (min): 1.5-3.5 (Regi Cox RN) Quality: Moderate to Strong (Regi Cox RN) Duration (sec): 50-70 (Regi Cox RN) Resting Tone (Palpate): Relaxed (Regi Cox RN) Monitor Mode: External US (Regi Cox RN) FHR Baseline Rate : 150 (Regi Cox RN) Variability: Moderate 6-25 bpm (Regi Field, RN) Accelerations: 15X15 (Regi Cox, RN) Decelerations: Late; Variable (Regi Cox, RN) Pitocin (milliunit): Pitocin Increased to (milliunits) @ 22 (Regi Cox, RN) Datetime: 01/06/2017 23:08 Dilatation (cm): 7.5 (Regi Cox, RN) Effacement (%): 100 (Regi Cox, RN) Station: 0 (Regi Cox RN) Exam by: ZUHAIR Au (Regi Cox, RN) Datetime: 01/06/2017 23:00 Monitor Mode: External; Palpation (Regi Cox RN) Frequency (min): 2-3 (Regi Cox RN) Quality: Moderate to Strong (Regi Cox RN) Duration (sec): 50-80 (Regi Cox RN) Resting Tone (Palpate): Relaxed (Regi Cox RN) Monitor Mode: External US (Regi Cox RN) FHR Baseline Rate : 150 (Regi Field, RN) Variability: Moderate 6-25 bpm (Regi Field, RN) Accelerations: None (Regi Field, RN) Decelerations: Variable (Regi Field, RN) Pitocin (milliunit): Pitocin Remains (milliunits) @ 20 (Regi Field, RN) Datetime: 01/06/2017 22:56 Communication Comments: Dr. Ramos at bedside (Regi Cox, RN) Datetime: 01/06/2017 22:50 NBP Sys/Maria De Jesus/Mean (mmHg): 110 (QS system process) : 70 (QS system process) : 87 (QS system process) Pulse: 141 (QS system process) LaborFlag: Antepartum (QS system process) Datetime: 01/06/2017 22:45 Monitor Mode: External; Palpation (Regi Field, RN) Frequency (min): 1.5-3.5 (Regi Field, RN) Quality: Moderate to Strong (Regi Field, RN) Duration (sec): 50-80 (Regi Field, RN) Resting Tone (Palpate): Relaxed (Regi Field, RN) Monitor Mode: External US (Regi Field, RN) FHR Baseline Rate : 145 (Regi Field, RN) Variability: Moderate 6-25 bpm (Regi Field, RN) Accelerations: 15X15 (Regi Field, RN) Decelerations: None (Regi Field, RN) Pitocin (milliunit): Pitocin Increased to (milliunits) @ 20 (Regi Field, RN) Datetime: 01/06/2017 22:35 NBP Sys/Maria De Jesus/Mean (mmHg): 119 (QS system process) : 63 (QS system process) : 77 (QS system process) Pulse: 148 (QS system process) LaborFlag: Antepartum (QS system process) Datetime: 01/06/2017 22:30 Monitor Mode: External; Palpation (Regi Field, RN) Frequency (min): 2-3 (Regi Field, RN) Quality: Moderate to Strong (Regi Field, RN) Duration (sec): 60-90 (Regi Field, RN) Resting Tone (Palpate): Relaxed (Regi Field, RN) Monitor Mode: External US (Regi Field, RN) FHR Baseline Rate : 140 (Regi Field, RN) Variability: Moderate 6-25 bpm (Regi Field, RN) Accelerations: 15X15 (Regi Field, RN) Decelerations: None (Regi Field, RN) Pitocin (milliunit): Pitocin Increased to (milliunits) @ 18 (Regi Field, RN) Datetime: 01/06/2017 22:21 Dilatation (cm): 6.0 (Regi Field, RN) Effacement (%): 90 (Regi Field, RN) Station: 0 (Regi Field, RN) Exam by: ZUHAIR Roca (Regi Field, RN) Datetime: 01/06/2017 22:20 NBP Sys/Maria De Jesus/Mean (mmHg): 138 (QS system process) : 60 (QS system process) : 87 (QS system process) Pulse: 118 (QS system process) Patient Position/Activity: Peanut Ball; Right Extreme (Regi Cox RN) LaborFlag: Antepartum (QS system process) Datetime: 01/06/2017 22:15 Monitor Mode: External; Palpation (Regi Cox, RN) Frequency (min): 2.5-3 (Regi Cox, RN) Quality: Moderate to Strong (Regi Cox, RN) Duration (sec): 50-80 (Regi Cox, RN) Resting Tone (Palpate): Relaxed (Regi Cox, RN) Monitor Mode: External US (Regi Cox, RN) FHR Baseline Rate : 140 (Regi Cox, RN) Variability: Moderate 6-25 bpm (Regi , RN) Accelerations: 15X15 (Regi Cox, RN) Decelerations: None (Regi Cox, RN) Pitocin (milliunit): Pitocin Remains (milliunits) @ 16 (Regi Cox, RN) Datetime: 01/06/2017 22:08 Anesthesia Comments: Dr. Dash at bedside (Regi Cox RN) Datetime: 01/06/2017 22:05 NBP Sys/Maria De Jesus/Mean (mmHg): 132 (QS system process) : 92 (QS system process) : 108 (QS system process) Pulse: 112 (QS system process) LaborFlag: Antepartum (QS system process) Datetime: 01/06/2017 22:00 Monitor Mode: External; Palpation (Regi Cox RN) Frequency (min): 2-2.5 (Regi Cox RN) Quality: Moderate to Strong (Regi Field, RN) Duration (sec): 50-70 (Regi Field, RN) Resting Tone (Palpate): Relaxed (Regi Field, RN) Monitor Mode: External US (Regi Field, RN) FHR Baseline Rate : 140 (Regi Field, RN) Variability: Moderate 6-25 bpm (Regi Field, RN) Accelerations: None (Regi Field, RN) Decelerations: None (Regi Field, RN) Pitocin (milliunit): Pitocin Remains (milliunits) @ 16 (Regi Field, RN) Datetime: 01/06/2017 21:50 NBP Sys/Maria De Jesus/Mean (mmHg): 121 (QS system process) : 74 (QS system process) : 92 (QS system process) Pulse: 126 (QS system process) Anesthesia Comments: Call to Dr. Dash regarding epidural wearing off (Regi Field, RN) LaborFlag: Antepartum (QS system process) Datetime: 01/06/2017 21:45 Monitor Mode: External; Palpation (Regi Field, RN) Frequency (min): 1.5-2 (Regi Cox, RN) Quality: Moderate to Strong (Regi Cox, RN) Duration (sec): 70-90 (Regi Cox, RN) Resting Tone (Palpate): Relaxed (Regi Cox, RN) Monitor Mode: External US (Regi Cox, RN) FHR Baseline Rate : 140 (Regi Cox, RN) Variability: Moderate 6-25 bpm (Regi Cox, RN) Accelerations: 15X15 (Regi Cox, RN) Decelerations: None (Regi Cox, RN) Pitocin (milliunit): Pitocin Increased to (milliunits) @ 16 (Regi Cox, RN) Patient Position/Activity: Left Extreme; Peanut Ball (Regi Cox, RN) Datetime: 01/06/2017 21:39 Dilatation (cm): 5.0 (Regi Cox, RN) Effacement (%): 90 (Regi Cox, RN) Station: -1 (Regi Cox, RN) Exam by: ZUHAIR Au (Regi Cox, RN) Datetime: 01/06/2017 21:35 NBP Sys/Maria De Jesus/Mean (mmHg): 134 (QS system process) : 77 (QS system process) : 100 (QS system process) Pulse: 113 (QS system process) LaborFlag: Antepartum (QS system process) Datetime: 01/06/2017 21:30 Monitor Mode: External; Palpation (Regi Field, RN) Frequency (min): 2-3 (Regi Field, RN) Quality: Moderate to Strong (Regi Field, RN) Duration (sec): 60-120 (Regi Field, RN) Resting Tone (Palpate): Relaxed (Regi Field, RN) Monitor Mode: External US (Regi Field, RN) FHR Baseline Rate : 130 (Regi Field, RN) Variability: Moderate 6-25 bpm (Regi Field, RN) Accelerations: 15X15 (Regi Field, RN) Decelerations: None (Regi Field, RN) Datetime: 01/06/2017 21:20 NBP Sys/Maria De Jesus/Mean (mmHg): 121 (QS system process) : 75 (QS system process) : 91 (QS system process) Pulse: 109 (QS system process) LaborFlag: Antepartum (QS system process) Datetime: 01/06/2017 21:15 Monitor Mode: External; Palpation (Regi Field, RN) Frequency (min): 2-4 (Regi Field, RN) Quality: Moderate to Strong (Regi Field, RN) Duration (sec): 60-100 (Regi Field, RN) Resting Tone (Palpate): Relaxed (Regi Field, RN) Monitor Mode: External US (Regi Field, RN) FHR Baseline Rate : 130 (Regi Field, RN) Variability: Moderate 6-25 bpm (Regi Field, RN) Accelerations: 15X15 (Regi Field, RN) Decelerations: Variable (Regi Field, RN) Pitocin (milliunit): Pitocin Remains (milliunits) @ 12 (Regi Field, RN) Datetime: 01/06/2017 21:06 NBP Sys/Maria De Jesus/Mean (mmHg): 115 (QS system process) : 55 (QS system process) : 74 (QS system process) Pulse: 100 (QS system process) LaborFlag: Antepartum (QS system process) Datetime: 01/06/2017 21:04 [facility] Position/Activity: Tailors [facility] Datetime: 01/06/2017 21:01 Pitocin (milliunit): Pitocin Increased to (milliunits) @ 12 [facility] Datetime: 01/06/2017 21:00 Monitor Mode: External; Palpation (Regi Field, RN) Frequency (min): 3-4 (Regi Field, RN) Quality: Moderate to Strong (Regi Field, RN) Duration (sec): 50-80 (Regi Field, RN) Resting Tone (Palpate): Relaxed (Regi Field, RN) Monitor Mode: External US (Regi Field, RN) FHR Baseline Rate : 125 (Regi Field, RN) Variability: Moderate 6-25 bpm (Regi Field, RN) Accelerations: 15X15 (Regi Field, RN) Decelerations: None (Regi Field, RN) Pitocin (milliunit): Pitocin Increased to (milliunits) @ 12 (Regi Field, RN) Datetime: 01/06/2017 20:50 NBP Sys/Maria De Jesus/Mean (mmHg): 99 (QS system process) : 53 (QS system process) : 69 (QS system process) Pulse: 112 (QS system process) LaborFlag: Antepartum (QS system process) Datetime: 01/06/2017 20:45 Monitor Mode: External; Palpation (Regi Field, RN) Frequency (min): 3-4 (Regi Field, RN) Quality: Moderate (Regi Field, RN) Duration (sec): 70-100 (Regi Field, RN) Resting Tone (Palpate): Relaxed (Regi Field, RN) Monitor Mode: External US (Regi Field, RN) FHR Baseline Rate : 125 (Regi Field, RN) Variability: Moderate 6-25 bpm (Regi Field, RN) Accelerations: 15X15 (Regi Field, RN) Decelerations: None (Regi Field, RN) Pitocin (milliunit): Pitocin Remains (milliunits) @ 10 (Regi Field, RN) Datetime: 01/06/2017 20:36 NBP Sys/Maria De Jesus/Mean (mmHg): 100 (QS system process) : 56 (QS system process) : 70 (QS system process) Pulse: 95 (QS system process) LaborFlag: Antepartum (QS system process) Datetime: 01/06/2017 20:34 Patient Position/Activity: Peanut Ball; Right Extreme (Regi Cox, RN) Datetime: 01/06/2017 20:32 Pitocin (milliunit): Pitocin Started (milliunits) @ 10; Pitocin 20 Units in 1000ml NS (Regi Field, RN) Datetime: 01/06/2017 20:30 Monitor Mode: External; Palpation (Regi Field, RN) Frequency (min): 4 (Regi Cox, RN) Quality: Moderate (Regi , RN) Duration (sec): 70-140 (Regi Cox, RN) Resting Tone (Palpate): Relaxed (Regi Cox, RN) Monitor Mode: External US (Regi Cox, RN) FHR Baseline Rate : 125 (Regi Field, RN) Variability: Moderate 6-25 bpm (Regi Field, RN) Accelerations: 15X15 (Regi Field, RN) Decelerations: None (Regi Field, RN) Datetime: 01/06/2017 20:20 NBP Sys/Maria De Jesus/Mean (mmHg): 115 (QS system process) : 65 (QS system process) : 81 (QS system process) Pulse: 96 (QS system process) LaborFlag: Antepartum (QS system process) Datetime: 01/06/2017 20:15 Monitor Mode: External; Palpation (Regi Field, RN) Frequency (min): 4-4.5 (Regi Field, RN) Quality: Moderate (Regi Field, RN) Duration (sec): 80-150 (Regi Field, RN) Resting Tone (Palpate): Relaxed (Regi Field, RN) Monitor Mode: External US (Regi Field, RN) FHR Baseline Rate : 125 (Regi Field, RN) Variability: Moderate 6-25 bpm (Regi Field, RN) Accelerations: 15X15 (Regi Field, RN) Decelerations: None (Regi Field, RN) Datetime: 01/06/2017 20:05 NBP Sys/Maria De Jesus/Mean (mmHg): 121 (QS system process) : 66 (QS system process) : 85 (QS system process) Pulse: 85 (QS system process) LaborFlag: Antepartum (QS system process) Datetime: 01/06/2017 20:00 Monitor Mode: External; Palpation (Regi Field, RN) Frequency (min): 1.5-5.5 (Regi Field, RN) Quality: Moderate (Regi Field, RN) Duration (sec): 50-110 (Regi Field, RN) Resting Tone (Palpate): Relaxed (Regi Field, RN) Monitor Mode: External US (Regi Field, RN) FHR Baseline Rate : 125 (Regi Field, RN) Variability: Moderate 6-25 bpm (Regi Field, RN) Accelerations: 15X15 (Regi Field, RN) Decelerations: None (Regi Field, RN) Datetime: 01/06/2017 19:52 NBP Sys/Maria De Jesus/Mean (mmHg): 131 (QS system process) : 59 (QS system process) : 85 (QS system process) Pulse: 91 (QS system process) LaborFlag: Antepartum (QS system process) Datetime: 01/06/2017 19:45 Monitor Mode: External; Palpation (Regi , RN) Frequency (min): 1.5-5 (Regi Field, RN) Quality: Moderate (Regi Field, RN) Duration (sec): 70-100 (Regi Field, RN) Resting Tone (Palpate): Relaxed (Regi Field, RN) Monitor Mode: External US (Regi Field, RN) FHR Baseline Rate : 125 (Regi Field, RN) Variability: Moderate 6-25 bpm (Regi Field, RN) Accelerations: 15X15 (Regi Field, RN) Decelerations: None (Regi Field, RN) Medication Comments: D5 250 mL (Regi Field, RN) Datetime: 01/06/2017 19:36 Level of Consciousness: Fully Conscious (Regi Field, RN) DTR's/Clonus: DTRs 1+; No Clonus (Regi Field, RN) Headache: Denies (Regi Field, RN) Breath Sounds, Left: Clear and Equal (Regi Field, RN) Breath Sounds, Right: Clear and Equal (Regi Field, RN) Nausea/Vomiting: Denies (Regi Field, RN) RUQ Epigastric Pain: Denies ([facility], RN) Pitocin (milliunit): Pitocin Discontinued ([facility], RN) Datetime: 01/06/2017 19:35 NBP Sys/Maria De Jessu/Mean (mmHg): 114 (QS system process) : 66 (QS system process) : 84 (QS system process) Pulse: 85 (QS system process) LaborFlag: Antepartum (QS system process) Datetime: 01/06/2017 19:30 Monitor Mode: External; Palpation (Regi Field, RN) Frequency (min): 1.5-4 (Regi Field, RN) Quality: Moderate (Regi Field, RN) Duration (sec): 60-80 (Regi Field, RN) Resting Tone (Palpate): Relaxed (Regi Field, RN) Monitor Mode: External US (Regi Field, RN) FHR Baseline Rate : 125 (Regi Field, RN) Variability: Moderate 6-25 bpm (Regi Field, RN) Accelerations: 15X15 (Regi Field, RN) Decelerations: None (Regi Field, RN) Datetime: 01/06/2017 19:28 Pitocin (milliunit): Pitocin Discontinued (Regi Field, RN) Datetime: 01/06/2017 19:20 NBP Sys/Maria De Jesus/Mean (mmHg): 110 (QS system process) : 70 (QS system process) : 82 (QS system process) Pulse: 85 (QS system process) LaborFlag: Antepartum (QS system process) Datetime: 01/06/2017 19:15 Monitor Mode: External; Palpation (Regi Field, RN) Frequency (min): 2-4 (Regi , RN) Quality: Moderate (Regi Field, RN) Duration (sec): 60-80 (Regi Field, RN) Resting Tone (Palpate): Relaxed (Regi Field, RN) Monitor Mode: External US (Regi Field, RN) FHR Baseline Rate : 125 (Regi Field, RN) Variability: Moderate 6-25 bpm (Regi Field, RN) Accelerations: 10X10 (Regi Field, RN) Decelerations: None (Regi Field, RN) Pitocin (milliunit): Pitocin Remains (milliunits) @ 20 (Regi Field, RN) Datetime: 01/06/2017 19:05 NBP Sys/Maria De Jesus/Mean (mmHg): 105 (QS system process) : 64 (QS system process) : 78 (QS system process) Pulse: 75 (QS system process) LaborFlag: Antepartum (QS system process) Datetime: 01/06/2017 19:00 Monitor Mode: External; Palpation (Regi Cox RN) Quality: Moderate (Regi Cox RN) Resting Tone (Palpate): Relaxed (Regi Cox RN) Contraction Comments: Unable to determine due to patient position (Regi Cox RN) Monitor Mode: External US (Regi Cox RN) FHR Baseline Rate : 120 (Regi Cox RN) Variability: Moderate 6-25 bpm (Regi Cox RN) Accelerations: 15X15 (Regi Cox RN) Decelerations: None (Regi Cox RN) Dilatation (cm): 3.0 (Regi Cox RN) Effacement (%): 90 (Regi Cox RN) Station: -1 (Regi Cox RN) Exam by: ZUHAIR Higginbotham (Regi Cox, RN) Pitocin (milliunit): Pitocin Remains (milliunits) @ 20 (Regi Cox RN)
--- NOTE | 2017-01-07 10:21 | PDOC PROGRESS REPORT ---
Subjective-OB Subjective: Post Delivery Day: 26 year old. Denies any needs at this time. Pt doing well, no complaints. She reports light bleeding, regular diet and voiding well. Physical Exam (OB) Vital Signs: Temp Pulse Resp BP Pulse Ox 98.1 F 95 20 118/59 L 97 01/07/17 07:41 01/07/17 07:41 01/07/17 07:41 01/07/17 07:41 01/07/17 07:41 Intake & Output 01/06/17 01/07/17 01/08/17 06:59 06:59 06:59 Weight 88.75 kg - Lochia Lochia Amount: Small 10-25 ml Lochia Color: Rubra/Red - Abdomen Description: Soft, Round Hernia Present: No Fundal Description: Firm, Midline Fundal Height: u/u - u/2 Objective-Diagnostic Laboratory: 01/05/17 19:00 01/07/17 02:26 Carbonic Acid 1.16 HCO3/H2CO3 Ratio 17:1 ABG pH 7.33 L ABG pCO2 38.6 ABG pO2 27.0 L* ABG HCO3 20.0 ABG O2 Saturation 46.5 L ABG Base Excess -5.3 FiO2 CORD BLOOD Assessment and Plan(PN) - Assessment and Plan (1) Normal vaginal delivery Is this a current diagnosis for this admission?: Yes - Time Spent with Patient Time with patient: Less than 15 minutes Medications reviewed and adjusted accordingly: Yes - Disposition Anticipated Discharge: Home Within: within 24 hours
[2017-01-07] MEDS: SENNOSIDES/DOCUSATE 8.6-50 MG 1 EACH TABLET PO SCH (10:24)
[2017-01-07] MEDS: PRENATAL VITAMIN W-O CA NO5/FE FUMARATE/FA CAPSULE PO SCH (10:24)
[2017-01-07] MEDS: FERROUS SULFATE 325 MG TABLET PO SCH ×2 (10:25→18:07)
[2017-01-07] MEDS: DOCUSATE SODIUM 100 MG CAPSULE PO SCH ×2 (10:25→18:07)
--- NOTE | 2017-01-07 18:00 | L&D Current Admission ---
Current Admit Datetime Report Generated by CPN: 01/07/2017 18:00 ADMISSION INFORMATION Person(s) Allowed during Admit: family (01/05/2017 18:56:Jak Robles RN) Current Admit Date/Time: 01/05/2017 18:56 (01/05/2017 18:56:Francisco Serna RN) Reason for Admission: Induction of Labor (01/05/2017 18:56:Francisco Serna RN) Chief Complaint: Scheduled Induction of Labor (01/05/2017 19:00:Francisco Serna RN) Medications During : Vitamin; Acetaminophen (Tylenol) (01/05/2017 18:56:Francisco Serna RN) Meds During -Oth: B12 _ Unisom (01/05/2017 18:56:Francisco Serna RN) EGA per Dates: 39.0 (01/05/2017 18:56:QS system process) Method of Arrival: Ambulatory (01/05/2017 18:56:Francisco Serna RN) Admitted From: Home (01/05/2017 18:56:Francisco Serna RN) Reason for Induction: Other (01/05/2017 18:56:Jak Robles RN) Reason for Induction- Other: uterine anomoly (01/05/2017 18:56:Jak Robles RN) Records Available: Yes (01/05/2017 18:56:Francisco Serna RN) General Admission Information: Reviewed (01/05/2017 18:56:Francisco Serna RN) BELONGINGS/ADVANCED DIRECTIVES Other Belongings: see valuables consent form (01/05/2017 18:56:Jak Robles RN) Disposition of Belongings: Kept with Patient (01/05/2017 18:56:Francisco Serna RN) Advance Direct for Healthcare: No, and Wants No Information (01/05/2017 18:56:Francisco Serna RN) Durable Power of [place]: No (01/05/2017 18:56:Francisco Serna RN) Living Will: No (01/05/2017 18:56:Francisco Serna RN) Organ Donor: Yes (01/05/2017 18:56:Francisco Serna RN) Pt Rights Information Given: Yes (01/05/2017 18:56:Jak Robles RN) Pt Understands Pt Rights: Yes (01/05/2017 18:56:Francisco Serna RN) LEARNING ASSESSMENT Knowledge Level: Understands L_D Process; Understands Care Activities; Had Pre-Hospital Education; Understands Diagnosis (01/05/2017 18:56:Francisco Serna RN) Barriers to Learning: None (01/05/2017 18:56:Francisco Serna RN) Learning Readiness: Motivated (01/05/2017 18:56:Francisco Serna RN) Learns Best By: 1 to 1 Instruction; Reading; Videos; Group Discussion; Demonstration (01/05/2017 18:56:Francisco Serna RN) Learning Needs: Labor and Delivery Process; Pain Management; Symptoms to Report; Treatment Plan; Medication; Diagnosis; Nutrition; Equipment; Care (01/05/2017 18:56:Francisco Serna RN) DOMESTIC VIOLANCE SCREENING Dom Viol Threatened/Hurt: No (01/05/2017 18:56:Francisco Serna RN) Hx of Abuse/Neglect past 2yrs: No (01/05/2017 18:56:Francisco Serna RN) Feel Unsafe Going Home: No (01/05/2017 18:56:Francisco Serna RN) Addt'l Observ Indicating Abuse: No (01/05/2017 18:56:Francisco Serna RN) Considered Personal Harm/Suicide: No (01/05/2017 18:56:Francisco Serna RN) NUTRITIONAL/FUNCTIONAL SCREENING Problem with Appetite >5 Days: No (01/05/2017 18:56:Francisco Serna RN) Chew/Swallow Difficulties: No (01/05/2017 18:56:Francisco Serna RN) Inappropriate Wt Gain/Loss: No (01/05/2017 18:56:Francisco Serna RN) Presence Skin Breakdown/Ulcer: No (01/05/2017 18:56:Francisco Serna RN) Special Diet: No (01/05/2017 18:56:Francisco Serna RN) Pt Requests Manager Advertising Visit: No (01/05/2017 18:56:Francisco Serna RN) Hx of Any of the Following?: N/A (01/05/2017 18:56:Francisco Serna RN) New Diagnosis of: N/A (01/05/2017 18:56:Francisco Serna RN) Requires Assist w/Ambulation: No (01/05/2017 18:56:Francisco Serna RN) Uses Assist Device to Ambulate: No (01/05/2017 18:56:Francisco Serna RN) Pt Requires Help w/ADL's: No (01/05/2017 18:56:Francisco Serna RN)
--- NOTE | 2017-01-07 18:00 | L&D General Admission ---
General Admit Datetime Report Generated by CPN: 01/07/2017 18:00 INFORMATION Patient Age: 26 (10/30/2016 09:43:QS system process) EDC: 01/12/2017 00:00 (11/29/2016 01:52:Sara Collins RN) : 1 (11/29/2016 01:52:Edelmira Love RN) Para: 0 (11/29/2016 03:10:Edelmira Love RN) Term: 0 (11/29/2016 01:52:Edelmira Love RN) : 0 (11/29/2016 01:52:Edelmira Love RN) Spontaneous Abortions: 0 (11/29/2016 01:52:Edelmira Love RN) Induced Abortions: 0 (11/29/2016 01:52:Edelmira Love RN) Livin (11/29/2016 01:52:JACINTA Antoine) Cesareans: 0 (11/29/2016 01:52:Edelmira Love RN) VBACs: 0 (11/29/2016 01:52:Edelmira Love RN) Ectopic: 0 (11/29/2016 01:52:Edelmira Love RN) Multiple Births: 0 (11/29/2016 01:52:Edelmira Love RN) Baby, Number in Womb: 1 (11/29/2016 03:10:Edelmira Love RN) CARE 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: [facility] (11/29/2016 01:52:Edelmira Love RN) Month of 1st Visit: 6 weeks (11/29/2016 01:52:Jak Robles RN) Adequate Care: Yes (11/29/2016 01:52:Edelmira Love RN) Height (in): 65 (11/29/2016 01:59:QS system process) ALLERGIES Medication Allergy: No (11/29/2016 01:52:Edelmira Love RN) Medication Allergies: No Known Allergies (12/18/2016) (12/18/2016 15:27:QS system process) Latex Allergy: No Latex Allergies (11/29/2016 01:52:Edelmira Love RN) Food Allergies: none (11/29/2016 01:52:Edelmira Love RN) Environmental Allergies: none (11/29/2016 01:52:Edelmira Love RN) COMMUNICATION Primary Language: Portuguese (11/29/2016 01:52:Edelmira Love RN) Medical Tx Preferred Language: Portuguese (11/29/2016 01:52:Edelmira Love RN) Communication Barrier(s): None (11/29/2016 01:52:Jak Robles RN) DEMOGRAPHICS Address: [address] [place] [phone] (10/30/2016 09:43:QS system process) Zipcode: [phone] (10/30/2016 09:43:QS system process) Home (10/30/2016 09:43:QS system process) SSN: [id number] (10/30/2016 09:43:QS system process) Next of Kin Name: MARVEL HINDS (10/30/2016 09:43:QS system process) Next of Kin (10/30/2016 09:43:QS system process) Next of Kin Relationship: MO (10/30/2016 09:43:QS system process) Date of : 1990 (10/30/2016 09:43:QS system process) Marital Status: (01/05/2017 18:20:QS system process) Sex: Female (10/30/2016 09:43:QS system process) Race: (10/30/2016 09:43:QS system process) Ethnicity: Non- or (10/30/2016 09:43:QS system process) Taoism: None (12/18/2016 15:20:QS system process) DRUG AND ALCOHOL USE Alcohol: No (11/29/2016 01:52:Edelmira Love RN) Cigarettes: Former Smoker. [id number] (11/29/2016 01:52:Edelmira Love RN) Marijuana: No (11/29/2016 01:52:Edemlira Love RN) Cocaine: No (11/29/2016 01:52:Edelimra Love RN) Other Illicit Drugs: No (11/29/2016 01:52:Edelmira Love RN) VACCINE HISTORY Influenza Vaccine: Yes (11/29/2016 01:52:Edelmira Love RN) Pneumococcal Vaccine: No (11/29/2016 01:52:Edelmira Love RN) Tetanus Vaccine: Yes (11/29/2016 01:52:Edelmira Love RN) Tdap Vaccine: Yes (11/29/2016 01:52:Edelmira Love RN) Hepatitis B Vaccine: Yes (11/29/2016 01:52:Edelmira Love RN) Mixing Roll Operator: [facility] (11/29/2016 01:52:Jak Robles RN) Feeding Preference: Breast (11/29/2016 01:52:Edelmira Love RN) Benefit of Breast Feed Discussed: Yes (11/29/2016 01:52:Edelmira Love RN) Circumcision: N/A (11/29/2016 01:52:Edelmira Love RN) Classes Attended: No (11/29/2016 01:52:Jak Robles RN) Tubal Ligation: No (11/29/2016 01:52:Edelmira Love RN) Tubal Authorization Signed: N/A (11/29/2016 01:52:Edelmira Love RN) Consent: N/A (11/29/2016 01:52:Edelmira Love RN) Consent Signed: N/A (11/29/2016 01:52:Edelmira Love RN) Pain Management Plans: Epidural (11/29/2016 01:52:Edelmira Love RN) Plans for Labor and Delivery: Other, Specify (11/29/2016 01:52:Jak Robles RN) Other Labor and Delivery Plans: skin to skin (11/29/2016 01:52:Edelmira Love RN) Support Person: Xu (11/29/2016 01:52:Edelmira Love RN) Support Person Relationship: (11/29/2016 01:52:Edelmira Love RN) Cultural/Spritual Practice: [facility] (11/29/2016 01:52:Edelmira Love RN) Spir/Cult Dietary Needs: No (11/29/2016 01:52:Edelmira Love RN) LIVING SITUATION/DISCHARGE PLAN Living Arrangements: House (11/29/2016 01:52:Edelmira Love RN) Adequate Access to:: Electric; Heat; Refrigeration; Plumbing/Running water; Phone; Transportation (11/29/2016 01:52:Edelmira Love RN) WIC Program: [facility] (11/29/2016 01:52:Edelmira Love RN) 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 Person: Xu (11/29/2016 01:52:Edelmira Love RN) Person to Help after Discharge: Xu (11/29/2016 01:52:Edelmira Love RN) Currently Using Commun Resources: [facility] (11/29/2016 01:52:Edelmira Love RN) Outside Agency/Relief Captain: [facility] (11/29/2016 01:52:Edelmira Love RN) Car Seat for Discharge: No (11/29/2016 01:52:Edelmira Love RN) Adoption Requested: No (11/29/2016 01:52:Edelmira Love RN) Pt Contact w/infant Post : N/A (11/29/2016 01:52:Edelmira Love RN) LABS Blood Type: O Negative (11/29/2016 01:52:Candi Schultz RN) Antibody Screen: positive (11/29/2016 01:52:Edelmira Love RN) Rho(G) this : Yes (11/29/2016 01:52:Candi Schultz RN) Date Rho(G) Given: 10/21/16 (11/29/2016 01:52:Candi Schultz RN) Hemoglobin: 11.4 L (01/05/2017 19:00:QS system process) Hematocrit: 33.9 L (01/05/2017 19:00:QS system process) MCV: 88 (01/05/2017 19:00:QS system process) Group Beta Strep: Negative (11/29/2016 01:52:Candi Schultz RN) Gonorrhea: Negative (11/29/2016 01:52:Edelmira Love RN) Chlamydia: Negative (11/29/2016 01:52:Edelmira Love RN) RPR/VDRL: Nonreactive (11/29/2016 01:52:Edelmira Love RN) HIV Exposure Test: Negative (11/29/2016 01:52:Edelmira Love RN) HIV Results: negative (11/29/2016 01:52:Edelmira Love RN) Hepatitis B: Negative (11/29/2016 01:52:Edelmira Love RN) Rubella: Immune (11/29/2016 01:52:Edelmira Love RN) OB/PREVIOUS HISTORY Current Procedures: Ultrasound; NST (11/29/2016 01:52:Edelmira Love RN) History of Previous : No (11/29/2016 01:52:Edelmira Love RN) History of Gestational Diabetes: No (11/29/2016 01:52:Edelmira Love RN) History of PIH: No (11/29/2016 01:52:Edelmira Love RN) History of Incompetent Cervix: No (11/29/2016 01:52:Edelmira Love RN) History of Placenta Previa/Abrup: No (11/29/2016 01:52:Edelmira Love RN) History of Macrosomia: No (11/29/2016 01:52:Edelmira Love RN) History of IUGR: No (11/29/2016 01:52:Edelmira Love RN) History of Hemorrhage: No (11/29/2016 01:52:Edelmira Love RN) History of Loss/Stillborn: No (11/29/2016 01:52:Edelmira Love RN) History of : No (11/29/2016 01:52:Edelmira Love RN) History of D (Rh) Sensitization: No (11/29/2016 01:52:Edelmira Love RN) History Recurrent Loss/Stillborn: No (11/29/2016 01:52:Edelmira Love RN) History Depression/PP Depression: No (11/29/2016 01:52:Edelmira Love RN) History of Uterine Anomaly/FANNY: Yes (11/29/2016 01:52:Candi Schultz RN) History of Infertility: No (11/29/2016 01:52:Edelmira Love RN) History of ART Treatment: No (11/29/2016 01:52:Edelmira Love RN) History of FANNY: No (11/29/2016 01:52:Edelmira Love RN) Comments Obstetrical History: G1: Current, increased jorje 23cm 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 (11/29/2016 01:52:Joann Felix RN) MEDICAL HISTORY Med Hx Diabetes: No (11/29/2016 01:52:Edelmira Love RN) Med Hx Hypertension: No (11/29/2016 01:52:Edelmira Love RN) Med Hx Heart Disease: No (11/29/2016 01:52:Edelmira Love RN) Med Hx Autoimmune Disorder: No (11/29/2016 01:52:Edelmira Love RN) Med Hx Kidney Disease/UTI: No (11/29/2016 01:52:Edelmira Love RN) Med Hx Neurologic/Epilepsy: No (11/29/2016 01:52:Edelmira Love RN) Med Hx Psychiatric Disorders: No (11/29/2016 01:52:Edelmira Love RN) Med Hx Hepatitis/Liver Disease: No (11/29/2016 01:52:Edelmira Lvoe RN) Med Hx Varicosities/Phlebitis: No (11/29/2016 01:52:Edelmira Love RN) Med Hx Thyroid Dysfunction: No (11/29/2016 01:52:Edelmira Love RN) Med Hx Trauma/Violence: No (11/29/2016 01:52:Edelmira Love RN) Med Hx Blood Transfusion: No (11/29/2016 01:52:Edelmira Love RN) Med Hx Pulmonary (Asthma,TB): No (11/29/2016 01:52:Edelmira Love RN) Med Hx Breast: No (11/29/2016 01:52:Edelmira Love RN) Med Hx RELIEF CAPTAIN Surgery: No (11/29/2016 01:52:Edelmira Love RN) Med Hx Hospitalization/Surgery: Yes (11/29/2016 01:52:Edelmira Love RN) Med Hx Anesthetic Complications: No (11/29/2016 01:52:Edelmira Love RN) Med Hx Abnormal Pap Smear: No (11/29/2016 01:52:Edelmira Love RN) Other Medical Diseases: No (11/29/2016 01:52:Edelmira Love RN) Med Hx Significant Family Hx: No (11/29/2016 01:52:Edelmira Love RN) Details of Med/Surg Hx: Hospitalizations: For ovarian cysts 2005, 2006, 2010 (11/29/2016 01:52:Candi Schultz RN) INFECTIOUS HISTORY Inf Hx Gonorrhea: No (11/29/2016 01:52:Edelmira Love RN) Inf Hx Chlamydia: No (11/29/2016 01:52:Edelmira Love RN) Inf Hx Syphilis: No (11/29/2016 01:52:Edelmira Love RN) Inf Hx HIV/AIDS: No (11/29/2016 01:52:Edelmira Love RN) Inf Hx Human Papilloma Virus: No (11/29/2016 01:52:Edelmira Love RN) Inf Hx Pt/Partner Genital Herpes: No (11/29/2016 01:52:Edelmira Love RN) Inf Hx Tuberculosis/Exposure: No (11/29/2016 01:52:Edelmira Love RN) Inf Hx Hepatitis B,C: No (11/29/2016 01:52:Edelmira Love RN) Inf Hx Rash or Viral Illness: No (11/29/2016 01:52:Edelmira Love RN) GENETIC HISTORY Gen Hx Age >=35 at TONI: No (11/29/2016 01:52:Edelmira Love RN) Gen Hx Thalassemia: No (11/29/2016 01:52:Edelmira Love RN) Gen Hx Congenital Heart Defect: No (11/29/2016 01:52:Edelmira Love RN) Gen Hx Neural Tube Defect: No (11/29/2016 01:52:Edelmira Love RN) Gen Hx Down's Syndrome: No (11/29/2016 01:52:Edelmira Love RN) Gen Hx Saul-Sachs: No (11/29/2016 01:52:Edelmira Love RN) Gen Hx Jesus: No (11/29/2016 01:52:Edelmira Love RN) Gen Hx Familial Dysautonomia: No (11/29/2016 01:52:Edelmira Love RN) Gen Hx Sickle Cell Disease/Trait: No (11/29/2016 01:52:Edelmira Love RN) Gen Hx Hemophilia/Blood Disorder: No (11/29/2016 01:52:Edelmira Love RN) Gen Hx Muscular Dystrophy: No (11/29/2016 01:52:Edelmira Love RN) Gen Hx Cystic Fibrosis: No (11/29/2016 01:52:Edelmira Love RN) Gen Hx [place] Chorea: No (11/29/2016 01:52:Edelmira Love RN) Gen Hx Mental Retardation/Autism: No (11/29/2016 01:52:Edelmira Love RN) Gen Hx Tested for Fragile X: No (11/29/2016 01:52:Edelmira Love RN) Gen Hx Other Inher/Chromosomal: No (11/29/2016 01:52:Edelmira Love RN) Gen Hx Maternal Metabolic DO: No (11/29/2016 01:52:Edelmira Love RN) Gen Hx Pt Father or FOB Defect: No (11/29/2016 01:52:Edelmira Love RN) Gen Hx Other Genetic History: No (11/29/2016 01:52:Edelmira Love RN) Gen Hx Drugs/Meds since LMP: No (11/29/2016 01:52:Edelmira Love RN) Gen Hx Medications: tylenol PRN (11/29/2016 01:52:Edelmira Love RN)
--- NOTE | 2017-01-07 18:15 | L&D Care Plan ---
LD CARE PLANS Datetime Report Generated by CPN: 01/07/2017 18:15 Datetime: 01/05/2017 19:14 Pain State: Risk For (Elyssa Hawley RN) Related To: Labor and Delivery Process; Treatment and Procedures (Elyssa Hawley RN) Goal(s): Patients Pain will be Assessed and Managed; Patient will Verbalize Adequate Relief of Pain or the Ability to [place] with Current Pain (Elyssa Hawley RN) Interventions: Assess Pain Severity on Scale of 0 (None) to 5 (Severe); Assess Type, Location and Intensity of Pain Each Time Client Reports Discomfort and Notify Provider if Unusal Pain Develops; Encourage Proper Breathing and Relaxation Techniques; Offer Alternatives Such as Repositioning, Calm Environment, Massages, Diversional Activities, Ice Pack, Splinting, and Ambulation; Administer Analgesics as Ordered; Assist with Epidural Placement as Appropriate; Evaluate Therapeutic Effectiveness of Medication and Treatments (Elyssa Hawley RN) Outcome: Patient will Report Absence or Relief of Pain Consistent with Established Pain Goal (Elyssa Hawley RN) Status: Ongoing (Elyssa Hawley RN) Outcome: Patient will have a Decrease in Signs and Symptoms of Discomfort (Elyssa Hawley RN) Status: Ongoing (Elyssa aHwley RN) Outcome: Pain will be Controlled During Procedures (Elyssa Hawley RN) Status: Ongoing (Elyssa Hawley RN) Anxiety State: Risk For (Elyssa Hawley RN) Related To: Labor and Delivery Process; Medical Interventions (Elyssa Hawley RN) Goal(s): Patient will have Decreased Anxiety and be able to Function at Acceptable Levels (Elyssa Hawley RN) Interventions: Assess Verbal and Nonverbal Behavioral Indicators of Anxiety; Assist Patient to Identify and Verbalize Symptoms of Anxiety; Identify and Demonstrate Techniques to Control Anxiety; Assist Patient with Coping Mechanisms to Manage Anxiety; Provide Theraputic Touch for the Patient; Explain to Patient, Using a Calm Reassuring Approach and Nonmedical Terms, All Activities, Procedures, and Concerns; Instruct Patient and Family about Post Discharge Care, Limitations, Symptoms to Report and Resources Available (Elyssa Hawley RN) Outcome: Patient will Identify, Verbalize and Demonstrate Techniques to Control Anxiety (Elyssa Hawley RN) Status: Ongoing (Elyssa Hawley RN) Outcome: Patient's Posture, Facial Expressions, Gestures and Activity Level will Reflect Decreased Anxiety (Elyssa Hawley RN) Status: Ongoing (Elyssa Hawley RN) Outcome: Patient will Verbalize a Sense of Control and/or Acceptance of the Situation (Elyssa Hawley RN) Status: Ongoing (Elyssa Hawley RN) Outcome: Patient will Identify and Utilize Support Person (Elyssa Hawley RN) Status: Ongoing (Elyssa Hawley RN) Knowledge Deficit State: Risk For (Elyssa Hawley RN) Related To: Labor and Delivery Process; Treatment and Procedures (Elyssa Hawley RN) Goal(s): Patient will Accurately Verbalize Understanding of Plan of Care and Treatment; Patient and Family will Accurately Verbalize Understanding of the Disease Process (Elyssa Hawley RN) Interventions: Assess Motivation and Willingness of Patient/Family to Learn; Assess Preferred Learning Mode: One to One Instruction, Reading, Videos, Group Discussion or Demonstration; Assess Barriers to Learning: Pain, Emotional State, Language Barrier, Cognitive Impairment, Visual or Hearing Deficits; Assess Patient and Family Knowledge of Disease Process, Medications and Treatment; Discuss Therapy and/or Treatment Options, Describe Rationale Behind Management, Therapy and Treatment Recommendations; Instruct Patient and Family on Signs and Symptoms to Report; Instruct Patient and Family on Medication Effects and Side Effects; Provide Appropriate and Timely Education Using Multiple Techniques; Provide Patient and Family with Support Group Information and Resources; Give Clear and Thorough Explanations and Demonstrations (Elyssa Hawley RN) Outcome: Patient and Family will Verbalize Understanding of Condition, Treatment and Signs and Symptoms to Report (Elyssa Hawley RN) Status: Ongoing (Elyssa Hawley RN) Outcome: Patient will Identify Perceived Learning Needs and Express Motivation to Learn (Elyssa Hawley RN) Status: Ongoing (Elyssa Hawley RN) Outcome: Patient will Verbalize Understanding of Desired Content, and/or Performs Desired Skill Prior to Discharge (Elyssa Hawley RN) Status: Ongoing (Elyssa Hawley RN) Infection State: Risk For (Elyssa Hawley RN) Related To: Prolonged Labor or Induction; Invasive Procedures (Elyssa Hawley RN) Goal(s): The Patient will be Free of Infection, Vital Signs Stable and Lab Work within Normal Parameters (Elyssa Hawley RN) Interventions: Instruct and Reinforce Proper Handwashing, Hygiene, and Care Techniques to Patient and Family; Monitor Vital Signs; Monitor Patient for the Following Signs of Infection: Fever, Abdominal Tenderness, Unusual Discharge; Monitor Aminiotic Fluid, Urine and Lochia for Color and Odor; Observe Wounds, Incisions and Invasive Line Sites for Redness, Drainage and Edema; Assess IV Sites per Hospital Policy; Monitor Lab and Test Results and Notify Provider of Abnormal Findings; Assess Nutritional Status and Promote Good Nutrition (Elyssa Hawley RN) Outcome: Patient will Remain Free of Infection (Elyssa Hawley RN) Status: Ongoing (Elyssa Hawley RN) Outcome: Infection will be Recognized Early to Allow for Prompt Treatment (Elyssa Hawley RN) Status: Ongoing (Elyssa Hawley RN) Outcome: Patient will have Vital Signs Within Expected Range (Elyssa Hawley RN) Status: Ongoing (Elyssa Hawley RN) Fluid Volume State: Risk For (Joann Felix RN) Related To: Surgical Procedures; Prolonged Labor or Induction; Hemorrhage; Anesthesia (Joann Felix RN) Goal(s): Patient will Achieve and Maintain a Balanced Fluid Volume Status; Hemodynamically Stable (Joann Felix RN) Interventions: Monitor Vital Signs; Auscultate Breath Sounds; Monitor Patient for Skin Turgor, Mucous Membranes, Dry Skin, Weakness, Headaches and Confusion; Provide Oral Fluids as Ordered; Initiate and Maintain Intravenous Fluids as Ordered; Monitor Intake and Output as Indicated Per Patient Status; Accurately Measure Blood Loss; Monitor Lab and Test Results as Obtained and Notify Provider of Abnormal Findings; Monitor Patient's Weight (Joann Felix RN) Outcome: Patient will have Clear Lung Sounds (Joann Felix RN) Status: Ongoing (Joann Felix RN) Outcome: Patient will have Vital Signs within Expected Range (Joann Felix RN) Status: Ongoing (Joann Felix RN) Outcome: Urine Output will be within Expected Range (Joann Felix RN) Status: Ongoing (Joann Felix RN) Outcome: Patient will have Minimal Generalized or Upper Extremity Edema (Joann Felix RN) Status: Ongoing (Joann Felix RN) Injury State: Risk For (Joann Felix RN) Related To: Labor and Delivery Process; Anesthesia; Risk to Status; Uteroplacental Perfusion; Hemorrhage, Placenta Previa and or Placental Abruption; Uterine Rupture (Joann Felix RN) Goal(s): Patient will Remain Free from Injury (Joann Felix RN) Interventions: Monitoring as per Hospital Protocol; Assess Neurological Status; Perform Risk Assessment of Patients with Induction and ; Perform Fall Risk Assessment and Prevention per Hospital Protocol; Perform DVT Risk Assessment and Prophylaxis per Hospital Protocol; Ensure that Oxygen, Suction, and Resuscitation Medications and Equipment are Readily Available; Confirm Patient ID Prior to Procedure(s) and Medication Administration per Hospital Policy (Joann Felix RN) Outcome: Successful Fall Risk Prevention (Joann Felix RN) Status: Ongoing (Joann Felix RN) Outcome: Patient will Deliver Infant without Adverse [place] (Joann Felix RN) Status: Ongoing (Joann Felix RN) Outcome: Patient's Neurological Status will Remain Stable (Joann Felix RN) Status: Ongoing (Joann Felix RN) Impaired Skin Integrity State: Risk For (Joann Felix RN) Related To: Vaginal Delivery; Surgical Procedures; Invasive Procedures (Joann Felix RN) Goal(s): Patient will Maintain Optimal Skin Integrity, Free of Breakdown, Injury or Infection (Joann Felix RN) Interventions: Complete Screening for Pressure Ulcer Risk and Initiate Protocol per Hospital Policy; Monitor Site of Skin Impairment for Color Changes, Redness, Swelling, Warmth, Pain or Other Signs of Infection; Encourage and Assist with Position Changes; Monitor Patient's Mobility Status; Provide Adequate Nutrition and Fluids; Teach Patient Appropriate Hygienic Care; Teach Patient/Family Skin Care Management (Joann Felix RN) Outcome: Patient will not have Evidence of Injury Such as Skin Breakdown, Scrapes, Cuts, or Bruising (Joann Felix RN) Status: Ongoing (Joann Felix RN) Outcome: Patient will Report Any Altered Sensation or Pain at Site of Skin Impairment (Joann Felix RN) Status: Ongoing (Joann Felix RN) Outcome: Patients Incisions and Wounds will be without Signs or Symptoms of Infection (Joann Felix RN) Status: Ongoing (Joann Felix RN) Outcome: Patient will Demonstrate Understanding of Plan to Heal Skin and Prevent Reinjury and Verbalize Risk Factors (Joann Felix RN) Status: Ongoing (Joann Felix RN) Parenting Impaired State: Risk For (Joann Felix RN) Related To: Apprehension Related to [place] Care (Joann Felix RN) Goal(s): Parents will Demonstrate Progressive Parenting Behaviors (Joann Felix RN) Interventions: Assess for Adequacy of Support Systems; Observe and Encourage Patient/Family Infant Attachment and Bonding Activities and Provide Feedback; Assess Patient/Family Understanding of 's Condition and Provide Accurate Information About Condition, Treatment and Prognosis; Assess for Patient/Family Behaviors that May Indicate Lack of Attachment; Provide a Safe Non-judgmental Environment for Patient/Family to Discuss Concerns; Promote Patient/Family Cohesiveness by Encouraging Discussion and Problem Solving; Labor Employment Associate Referral as Indicated (Joann Felix RN) Outcome: Patient/Family will Discuss Their Fears and the Possibility of Difficulties with Parenting (Joann Felix RN) Status: Ongoing (Joann Felix RN) Outcome: Patient/Family will Exhibit Appropriate Bonding Behaviors with (Joann Felix RN) Status: Ongoing (Joann Felix RN) Outcome: Patient/Family will Verbalize Positive Feelings and Demonstrate Affection and Caring Toward Infant (Joann Felix RN) Status: Ongoing (Joann Felix RN) Nutrition State: Risk For (Joann Felix RN) Related To: ; (Joann Felix RN) Goal(s): Patient will have an Intake of Nutrients Sufficient to Meet Metabolic Needs (Joann Felix RN) Interventions: Nutritional Screening and Assessment per Hospital Policy; Consult Hearing Aid Mechanic for Further Assessment and Recommendations Regarding Food Preferences and Nutritional Support; Allow Patient to Plan and Order Diet when Possible; Monitor Laboratory Values That Indicate Nutritional Well-being; Consult Family Caseworker for Nutritional Support Regarding Requirements; Document Actual Weight Initially and Weekly (Do Not Estimate); Encourage Patient Participation in Maintaining a Food Log as Indicated; Educate Patient on the Importance of Maintaining an Adequate Caloric Intake (Joann Felix RN) Outcome: Patient will Receive Adequate Calories and Fluid Volume to Meet Metabolic Needs (Joann Felix RN) Status: Ongoing (Joann Felix RN) Outcome: Patient will Select Foods or Meals that Support Adequate Nutrition (Joann Felix RN) Status: Ongoing (Joann Felix RN) Grieving State: Not Applicable (Joann Kossmann, RN) Additional Care Plan State: Not Applicable (Annotations: Data stored by CPN on behalf of user) (Joann Kossmann, RN) Datetime: 01/05/2017 19:13 Pain State: Risk For (Elyssa Hawley RN) Related To: Labor and Delivery Process; Treatment and Procedures (Elyssa Hawley RN) Goal(s): Patients Pain will be Assessed and Managed; Patient will Verbalize Adequate Relief of Pain or the Ability to [place] with Current Pain (Elyssa Hawley RN) Interventions: Assess Pain Severity on Scale of 0 (None) to 5 (Severe); Assess Type, Location and Intensity of Pain Each Time Client Reports Discomfort and Notify Provider if Unusal Pain Develops; Encourage Proper Breathing and Relaxation Techniques; Offer Alternatives Such as Repositioning, Calm Environment, Massages, Diversional Activities, Ice Pack, Splinting, and Ambulation; Administer Analgesics as Ordered; Assist with Epidural Placement as Appropriate; Evaluate Therapeutic Effectiveness of Medication and Treatments (Elyssa Hawley RN) Outcome: Patient will Report Absence or Relief of Pain Consistent with Established Pain Goal (Elyssa Hawley RN) Status: Ongoing (Elyssa Hawley RN) Outcome: Patient will have a Decrease in Signs and Symptoms of Discomfort (Elyssa Hawley RN) Status: Ongoing (Elyssa Hawley RN) Outcome: Pain will be Controlled During Procedures (Elyssa Hawley RN) Status: Ongoing (Elyssa Hawley RN) Anxiety State: Risk For (Elyssa Hawley RN) Related To: Labor and Delivery Process; Medical Interventions (Elyssa Hawley RN) Goal(s): Patient will have Decreased Anxiety and be able to Function at Acceptable Levels (Elyssa Hawley RN) Interventions: Assess Verbal and Nonverbal Behavioral Indicators of Anxiety; Assist Patient to Identify and Verbalize Symptoms of Anxiety; Identify and Demonstrate Techniques to Control Anxiety; Assist Patient with Coping Mechanisms to Manage Anxiety; Provide Theraputic Touch for the Patient; Explain to Patient, Using a Calm Reassuring Approach and Nonmedical Terms, All Activities, Procedures, and Concerns; Instruct Patient and Family about Post Discharge Care, Limitations, Symptoms to Report and Resources Available (Elyssa Hawley RN) Outcome: Patient will Identify, Verbalize and Demonstrate Techniques to Control Anxiety (Elyssa Hawley RN) Status: Ongoing (Elyssa Hawley RN) Outcome: Patient's Posture, Facial Expressions, Gestures and Activity Level will Reflect Decreased Anxiety (Elyssa Hawley RN) Status: Ongoing (Elyssa Hawley RN) Outcome: Patient will Verbalize a Sense of Control and/or Acceptance of the Situation (Elyssa Hawley RN) Status: Ongoing (Elyssa Hawley RN) Outcome: Patient will Identify and Utilize Support Person (Elyssa Hawley RN) Status: Ongoing (Elyssa Hawley RN) Knowledge Deficit State: Risk For (Elyssa Hawley RN) Related To: Labor and Delivery Process; Treatment and Procedures (Elyssa Hawley RN) Goal(s): Patient will Accurately Verbalize Understanding of Plan of Care and Treatment; Patient and Family will Accurately Verbalize Understanding of the Disease Process (Elyssa Hawley RN) Interventions: Assess Motivation and Willingness of Patient/Family to Learn; Assess Preferred Learning Mode: One to One Instruction, Reading, Videos, Group Discussion or Demonstration; Assess Barriers to Learning: Pain, Emotional State, Language Barrier, Cognitive Impairment, Visual or Hearing Deficits; Assess Patient and Family Knowledge of Disease Process, Medications and Treatment; Discuss Therapy and/or Treatment Options, Describe Rationale Behind Management, Therapy and Treatment Recommendations; Instruct Patient and Family on Signs and Symptoms to Report; Instruct Patient and Family on Medication Effects and Side Effects; Provide Appropriate and Timely Education Using Multiple Techniques; Provide Patient and Family with Support Group Information and Resources; Give Clear and Thorough Explanations and Demonstrations (Elyssa Hawley RN) Outcome: Patient and Family will Verbalize Understanding of Condition, Treatment and Signs and Symptoms to Report (Elyssa Hawley RN) Status: Ongoing (Elyssa Hawley RN) Outcome: Patient will Identify Perceived Learning Needs and Express Motivation to Learn (Elyssa Hawley RN) Status: Ongoing (Elyssa Hawley RN) Outcome: Patient will Verbalize Understanding of Desired Content, and/or Performs Desired Skill Prior to Discharge (Elyssa Hawley RN) Status: Ongoing (Elyssa Hawley RN) Infection State: Risk For (Elyssa Hawley RN) Related To: Prolonged Labor or Induction; Invasive Procedures (Elyssa Hawley RN) Goal(s): The Patient will be Free of Infection, Vital Signs Stable and Lab Work within Normal Parameters (Elyssa Hawley RN) Interventions: Instruct and Reinforce Proper Handwashing, Hygiene, and Care Techniques to Patient and Family; Monitor Vital Signs; Monitor Patient for the Following Signs of Infection: Fever, Abdominal Tenderness, Unusual Discharge; Monitor Aminiotic Fluid, Urine and Lochia for Color and Odor; Observe Wounds, Incisions and Invasive Line Sites for Redness, Drainage and Edema; Assess IV Sites per Hospital Policy; Monitor Lab and Test Results and Notify Provider of Abnormal Findings; Assess Nutritional Status and Promote Good Nutrition (Elyssa Hawley RN) Outcome: Patient will Remain Free of Infection (Elyssa Hawley RN) Status: Ongoing (Elyssa Hawley RN) Outcome: Infection will be Recognized Early to Allow for Prompt Treatment (Elyssa Hawley RN) Status: Ongoing (Elyssa Hawley RN) Outcome: Patient will have Vital Signs Within Expected Range (Elyssa Hawley RN) Status: Ongoing (Elyssa Hawley RN)
[2017-01-08] MEDS: IBUPROFEN 800 MG TABLET PO SCH ×2 (05:49→17:34)
--- NOTE | 2017-01-08 06:00 | L&D General Admission ---
General Admit Datetime Report Generated by CPN: 01/08/2017 06:00 INFORMATION Patient Age: 26 (10/30/2016 09:43:QS system process) EDC: 01/12/2017 00:00 (11/29/2016 01:52:Sara Collins RN) : 1 (11/29/2016 01:52:Edelmira Love RN) Para: 0 (11/29/2016 03:10:Edelmira Love RN) Term: 0 (11/29/2016 01:52:Edelmira Love RN) : 0 (11/29/2016 01:52:Edelmira Love RN) Spontaneous Abortions: 0 (11/29/2016 01:52:Edelmira Love RN) Induced Abortions: 0 (11/29/2016 01:52:Edelmira Love RN) Livin (11/29/2016 01:52:JACINTA Antoine) Cesareans: 0 (11/29/2016 01:52:Edelmira Love RN) VBACs: 0 (11/29/2016 01:52:Edelmira Love RN) Ectopic: 0 (11/29/2016 01:52:Edelmira Love RN) Multiple Births: 0 (11/29/2016 01:52:Edelmira Love RN) Baby, Number in Womb: 1 (11/29/2016 03:10:Edelmira Love RN) CARE Primary Seal Delivery Vehicle Officer: [facility] (11/29/2016 01:52:Edelmira Love RN) Month of 1st Visit: 6 weeks (11/29/2016 01:52:Jak Robles RN) Adequate Care: Yes (11/29/2016 01:52:Edelmira Love RN) Height (in): 65 (11/29/2016 01:59:QS system process) ALLERGIES Medication Allergy: No (11/29/2016 01:52:Edelmira Love RN) Medication Allergies: No Known Allergies (12/18/2016) (12/18/2016 15:27:QS system process) Latex Allergy: No Latex Allergies (11/29/2016 01:52:Edelmira Love RN) Food Allergies: none (11/29/2016 01:52:Edelmira Love RN) Environmental Allergies: none (11/29/2016 01:52:Edelmira Love RN) COMMUNICATION Primary Language: Mongolian (11/29/2016 01:52:Edelmira Love RN) Medical Tx Preferred Language: Mongolian (11/29/2016 01:52:Edelmira Love RN) Communication Barrier(s): None (11/29/2016 01:52:Jak Robles RN) DEMOGRAPHICS Address: [address] [place] [id number] (10/30/2016 09:43:QS system process) Zipcode: [phone] (10/30/2016 09:43:QS system process) Home (10/30/2016 09:43:QS system process) SSN: [id number] (10/30/2016 09:43:QS system process) Next of Kin Name: MARVEL HINDS (10/30/2016 09:43:QS system process) Next of Kin (10/30/2016 09:43:QS system process) Next of Kin Relationship: MO (10/30/2016 09:43:QS system process) Date of : 1990 (10/30/2016 09:43:QS system process) Marital Status: (01/05/2017 18:20:QS system process) Sex: Female (10/30/2016 09:43:QS system process) Race: (10/30/2016 09:43:QS system process) Ethnicity: Non- or (10/30/2016 09:43:QS system process) Orthodoxy: None (12/18/2016 15:20:QS system process) DRUG AND ALCOHOL USE Alcohol: No (11/29/2016 01:52:Edelmira Love RN) Cigarettes: Former Smoker. [id number] (11/29/2016 01:52:Edelmira Love RN) Marijuana: No (11/29/2016 01:52:Edelmira Love RN) Cocaine: No (11/29/2016 01:52:Edelmira Love RN) Other Illicit Drugs: No (11/29/2016 01:52:Edelmira Love RN) VACCINE HISTORY Influenza Vaccine: Yes (11/29/2016 01:52:Edelmira Love RN) Pneumococcal Vaccine: No (11/29/2016 01:52:Edelmira Love RN) Tetanus Vaccine: Yes (11/29/2016 01:52:Edelmira Love RN) Tdap Vaccine: Yes (11/29/2016 01:52:Edelmira Love RN) Hepatitis B Vaccine: Yes (11/29/2016 01:52:Edelmira Love RN) Vendor Relationship Manager: [facility] (11/29/2016 01:52:Jak Robles RN) Feeding Preference: Breast (11/29/2016 01:52:Edelmira Love RN) Benefit of Breast Feed Discussed: Yes (11/29/2016 01:52:Edelmira Love RN) Circumcision: N/A (11/29/2016 01:52:Edelmira Love RN) Classes Attended: No (11/29/2016 01:52:Jak Robles RN) Tubal Ligation: No (11/29/2016 01:52:Edelmira Love RN) Tubal Authorization Signed: N/A (11/29/2016 01:52:Edelmira Love RN) Consent: N/A (11/29/2016 01:52:Edelmira Love RN) Consent Signed: N/A (11/29/2016 01:52:Edelmira Love RN) Pain Management Plans: Epidural (11/29/2016 01:52:Edelmira Love RN) Plans for Labor and Delivery: Other, Specify (11/29/2016 01:52:Jak Robles RN) Other Labor and Delivery Plans: skin to skin (11/29/2016 01:52:Edelmira Love RN) Support Person: Xu (11/29/2016 01:52:Edelmira Love RN) Support Person Relationship: (11/29/2016 01:52:Edelmira Love RN) Cultural/Spritual Practice: [facility] (11/29/2016 01:52:Edelmira Love RN) Spir/Cult Dietary Needs: No (11/29/2016 01:52:Edelmira Love RN) LIVING SITUATION/DISCHARGE PLAN Living Arrangements: House (11/29/2016 01:52:Edelmira Love RN) Adequate Access to:: Electric; Heat; Refrigeration; Plumbing/Running water; Phone; Transportation (11/29/2016 01:52:Edelmira Love RN) WIC Program: [facility] (11/29/2016 01:52:Edelmira Love RN) Discharge Overnight Stocker Person: Xu (11/29/2016 01:52:Edelmira Love RN) Person to Help after Discharge: Xu (11/29/2016 01:52:Edelmira Love RN) Currently Using Commun Resources: [facility] (11/29/2016 01:52:Edelmira Love RN) Outside Agency/Freight Shipping Agent: [facility] (11/29/2016 01:52:Edelmira Love RN) Car Seat for Discharge: No (11/29/2016 01:52:Edelmira Love RN) Adoption Requested: No (11/29/2016 01:52:Edelmira Love RN) Pt Contact w/infant Post : N/A (11/29/2016 01:52:Edelmira Love RN) LABS Blood Type: O Negative (11/29/2016 01:52:Candi Schultz RN) Antibody Screen: positive (11/29/2016 01:52:Edelmira Love RN) Rho(G) this : Yes (11/29/2016 01:52:Candi Schultz RN) Date Rho(G) Given: 10/21/16 (11/29/2016 01:52:Candi Schultz RN) Hemoglobin: 11.4 L (01/05/2017 19:00:QS system process) Hematocrit: 33.9 L (01/05/2017 19:00:QS system process) MCV: 88 (01/05/2017 19:00:QS system process) Group Beta Strep: Negative (11/29/2016 01:52:Candi Schultz RN) Gonorrhea: Negative (11/29/2016 01:52:Edelmira Love RN) Chlamydia: Negative (11/29/2016 01:52:Edelmira Love RN) RPR/VDRL: Nonreactive (11/29/2016 01:52:Edelmira Love RN) HIV Exposure Test: Negative (11/29/2016 01:52:Edelmira Love RN) HIV Results: negative (11/29/2016 01:52:Edelmira Love RN) Hepatitis B: Negative (11/29/2016 01:52:Edelmira Love RN) Rubella: Immune (11/29/2016 01:52:Edelmira Love RN) OB/PREVIOUS HISTORY Current Procedures: Ultrasound; NST (11/29/2016 01:52:Edelmira Love RN) History of Previous : No (11/29/2016 01:52:Edelmira Love RN) History of Gestational Diabetes: No (11/29/2016 01:52:Edelmira Love RN) History of PIH: No (11/29/2016 01:52:Edelmira Love RN) History of Incompetent Cervix: No (11/29/2016 01:52:Edelmira Love RN) History of Placenta Previa/Abrup: No (11/29/2016 01:52:Edelmira Love RN) History of Macrosomia: No (11/29/2016 01:52:Edelmira Love RN) History of IUGR: No (11/29/2016 01:52:Edelmira Love RN) History of Hemorrhage: No (11/29/2016 01:52:Edelmira Love RN) History of Loss/Stillborn: No (11/29/2016 01:52:Edelmira Love RN) History of : No (11/29/2016 01:52:Edelmira Love RN) History of D (Rh) Sensitization: No (11/29/2016 01:52:Edelmira Love RN) History Recurrent Loss/Stillborn: No (11/29/2016 01:52:Edelmira Love RN) History Depression/PP Depression: No (11/29/2016 01:52:Edelmira Love RN) History of Uterine Anomaly/FANNY: Yes (11/29/2016 01:52:Candi Schultz RN) History of Infertility: No (11/29/2016 01:52:Edelmira Love RN) History of ART Treatment: No (11/29/2016 01:52:Edelmira Love RN) History of FANNY: No (11/29/2016 01:52:Edelmira Love RN) Comments Obstetrical History: G1: Current, increased jorje 23cm 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 (11/29/2016 01:52:Joann Felix RN) MEDICAL HISTORY Med Hx Diabetes: No (11/29/2016 01:52:Edelmira Love RN) Med Hx Hypertension: No (11/29/2016 01:52:Edelmira Love RN) Med Hx Heart Disease: No (11/29/2016 01:52:Edelmira Love RN) Med Hx Autoimmune Disorder: No (11/29/2016 01:52:Edelmira Love RN) Med Hx Kidney Disease/UTI: No (11/29/2016 01:52:Edelmira Love RN) Med Hx Neurologic/Epilepsy: No (11/29/2016 01:52:Edelmira Love RN) Med Hx Psychiatric Disorders: No (11/29/2016 01:52:Edelmira Love RN) Med Hx Hepatitis/Liver Disease: No (11/29/2016 01:52:Edelmira Love RN) Med Hx Varicosities/Phlebitis: No (11/29/2016 01:52:Edelmira Love RN) Med Hx Thyroid Dysfunction: No (11/29/2016 01:52:Edelmira Love RN) Med Hx Trauma/Violence: No (11/29/2016 01:52:Edelmira Love RN) Med Hx Blood Transfusion: No (11/29/2016 01:52:Edelmira Love RN) Med Hx Pulmonary (Asthma,TB): No (11/29/2016 01:52:Edelmira Love RN) Med Hx Breast: No (11/29/2016 01:52:Edelmira Love RN) Med Hx SAND MOLDER Surgery: No (11/29/2016 01:52:Edelmira Love RN) Med Hx Hospitalization/Surgery: Yes (11/29/2016 01:52:Edelmira Love RN) Med Hx Anesthetic Complications: No (11/29/2016 01:52:Edelmira Love RN) Med Hx Abnormal Pap Smear: No (11/29/2016 01:52:Edelmira Love RN) Other Medical Diseases: No (11/29/2016 01:52:Edelmira Love RN) Med Hx Significant Family Hx: No (11/29/2016 01:52:Edelmira Love RN) Details of Med/Surg Hx: Hospitalizations: For ovarian cysts 2005, 2006, 2010 (11/29/2016 01:52:Candi Schultz RN) INFECTIOUS HISTORY Inf Hx Gonorrhea: No (11/29/2016 01:52:Edelmira Love RN) Inf Hx Chlamydia: No (11/29/2016 01:52:Edelmira Love RN) Inf Hx Syphilis: No (11/29/2016 01:52:Edelmira Love RN) Inf Hx HIV/AIDS: No (11/29/2016 01:52:Edelmira Love RN) Inf Hx Human Papilloma Virus: No (11/29/2016 01:52:Edelmira Love RN) Inf Hx Pt/Partner Genital Herpes: No (11/29/2016 01:52:Edelmira Love RN) Inf Hx Tuberculosis/Exposure: No (11/29/2016 01:52:Edelmira Love RN) Inf Hx Hepatitis B,C: No (11/29/2016 01:52:Edelmira Love RN) Inf Hx Rash or Viral Illness: No (11/29/2016 01:52:Edelmira Love RN) GENETIC HISTORY Gen Hx Age >=35 at TONI: No (11/29/2016 01:52:Edelmira Love RN) Gen Hx Thalassemia: No (11/29/2016 01:52:Edelmira Love RN) Gen Hx Congenital Heart Defect: No (11/29/2016 01:52:Edelmira Love RN) Gen Hx Neural Tube Defect: No (11/29/2016 01:52:Edelmira Love RN) Gen Hx Down's Syndrome: No (11/29/2016 01:52:Edelmira Love RN) Gen Hx Saul-Sachs: No (11/29/2016 01:52:Edelmira Love RN) Gen Hx Jesus: No (11/29/2016 01:52:Edelmira Love RN) Gen Hx Familial Dysautonomia: No (11/29/2016 01:52:Edelmira Love RN) Gen Hx Sickle Cell Disease/Trait: No (11/29/2016 01:52:Edelmira Love RN) Gen Hx Hemophilia/Blood Disorder: No (11/29/2016 01:52:Edelmira Love RN) Gen Hx Muscular Dystrophy: No (11/29/2016 01:52:Edelmira Love RN) Gen Hx Cystic Fibrosis: No (11/29/2016 01:52:Edelmira Love RN) Gen Hx Huntingtons Chorea: No (11/29/2016 01:52:Edelmira Love RN) Gen Hx Mental Retardation/Autism: No (11/29/2016 01:52:Edelmira Love RN) Gen Hx Tested for Fragile X: No (11/29/2016 01:52:Edelmira Love RN) Gen Hx Other Inher/Chromosomal: No (11/29/2016 01:52:Edelmira Love RN) Gen Hx Maternal Metabolic DO: No (11/29/2016 01:52:Edelmira Love RN) Gen Hx Pt Father or FOB Defect: No (11/29/2016 01:52:Edelmira Love RN) Gen Hx Other Genetic History: No (11/29/2016 01:52:Edelmira Love RN) Gen Hx Drugs/Meds since LMP: No (11/29/2016 01:52:Edelmira Love RN) Gen Hx Medications: tylenol PRN (11/29/2016 01:52:Edelmira Love RN)
--- NOTE | 2017-01-08 06:00 | L&D Current Admission ---
Current Admit Datetime Report Generated by CPN: 01/08/2017 06:00 ADMISSION INFORMATION Person(s) Allowed during Admit: family (01/05/2017 18:56:Jak Robles RN) Current Admit Date/Time: 01/05/2017 18:56 (01/05/2017 18:56:Francisco Serna RN) Reason for Admission: Induction of Labor (01/05/2017 18:56:Francisco Serna RN) Chief Complaint: Scheduled Induction of Labor (01/05/2017 19:00:Francisco Serna RN) Medications During : Vitamin; Acetaminophen (Tylenol) (01/05/2017 18:56:Francisco Serna RN) Meds During -Oth: B12 _ Unisom (01/05/2017 18:56:Francisco Serna RN) EGA per Dates: 39.0 (01/05/2017 18:56:QS system process) Method of Arrival: Ambulatory (01/05/2017 18:56:Francisco Serna RN) Admitted From: Home (01/05/2017 18:56:Francisco Serna RN) Reason for Induction: Other (01/05/2017 18:56:Jak Robles RN) Reason for Induction- Other: uterine anomoly (01/05/2017 18:56:Jak Robles RN) Records Available: Yes (01/05/2017 18:56:Francisco Serna RN) General Admission Information: Reviewed (01/05/2017 18:56:Francisco Serna RN) BELONGINGS/ADVANCED DIRECTIVES Other Belongings: see valuables consent form (01/05/2017 18:56:Jak Robles RN) Disposition of Belongings: Kept with Patient (01/05/2017 18:56:Francisco Serna RN) Advance Direct for Healthcare: No, and Wants No Information (01/05/2017 18:56:Francisco Serna RN) Durable Power of Top Lift Cutter: No (01/05/2017 18:56:Francisco Serna RN) Living Will: No (01/05/2017 18:56:Francisco Serna RN) Organ Donor: Yes (01/05/2017 18:56:Francisco Serna RN) Pt Rights Information Given: Yes (01/05/2017 18:56:Jak Robles RN) Pt Understands Pt Rights: Yes (01/05/2017 18:56:Francisco Serna RN) LEARNING ASSESSMENT Knowledge Level: Understands L_D Process; Understands Care Activities; Had Pre-Hospital Education; Understands Diagnosis (01/05/2017 18:56:Francisco Serna RN) Barriers to Learning: None (01/05/2017 18:56:Francisco Serna RN) Learning Readiness: Motivated (01/05/2017 18:56:Francisco Serna RN) Learns Best By: 1 to 1 Instruction; Reading; Videos; Group Discussion; Demonstration (01/05/2017 18:56:Francisco Serna RN) Learning Needs: Labor and Delivery Process; Pain Management; Symptoms to Report; Treatment Plan; Medication; Diagnosis; Nutrition; Equipment; Care (01/05/2017 18:56:Francisco Serna RN) DOMESTIC VIOLANCE SCREENING Dom Viol Threatened/Hurt: No (01/05/2017 18:56:Francisco Serna RN) Hx of Abuse/Neglect past 2yrs: No (01/05/2017 18:56:Francisco Serna RN) Feel Unsafe Going Home: No (01/05/2017 18:56:Francisco Serna RN) Addt'l Observ Indicating Abuse: No (01/05/2017 18:56:Francisco Serna RN) Considered Personal Harm/Suicide: No (01/05/2017 18:56:Francisco Serna RN) NUTRITIONAL/FUNCTIONAL SCREENING Problem with Appetite >5 Days: No (01/05/2017 18:56:Francisco Serna RN) Chew/Swallow Difficulties: No (01/05/2017 18:56:Francisco Serna RN) Inappropriate Wt Gain/Loss: No (01/05/2017 18:56:Francisco Serna RN) Presence Skin Breakdown/Ulcer: No (01/05/2017 18:56:Francisco Serna RN) Special Diet: No (01/05/2017 18:56:Francisco Serna RN) Pt Requests Black Oxide Operator Visit: No (01/05/2017 18:56:Francisco Serna RN) Hx of Any of the Following?: N/A (01/05/2017 18:56:Francisco Serna RN) New Diagnosis of: N/A (01/05/2017 18:56:Francisco Serna RN) Requires Assist w/Ambulation: No (01/05/2017 18:56:Francisco Serna RN) Uses Assist Device to Ambulate: No (01/05/2017 18:56:Francisco Serna RN) Pt Requires Help w/ADL's: No (01/05/2017 18:56:Francisco Serna RN)
[2017-01-08 08:35] LABS: HEMATOCRIT 24.2 % (36.0-47.0); HGB HCT DIFFERENCE -0.2; MEAN CORPUSCULAR HEMOGLOBIN 29.7 pg (27.0-33.4); MEAN CORPUSCULAR HGB CONC 32.9 g/dL (32.0-36.0); MEAN CORPUSCULAR VOLUME 90 fl (80-97); RED BLOOD COUNT 2.69 10^6/uL (3.72-5.28); WHITE BLOOD COUNT 13.5 10^3/uL (4.0-10.5)
[2017-01-08] MEDS: PRENATAL VITAMIN W-O CA NO5/FE FUMARATE/FA CAPSULE PO SCH (10:29)
[2017-01-08] MEDS: FERROUS SULFATE 325 MG TABLET PO SCH ×2 (10:29→17:34)
[2017-01-08] MEDS: DOCUSATE SODIUM 100 MG CAPSULE PO SCH ×2 (10:29→17:34)
[2017-01-08] MEDS: SENNOSIDES/DOCUSATE 8.6-50 MG 1 EACH TABLET PO SCH (10:30)
--- NOTE | 2017-01-08 12:08 | PDOC PROGRESS REPORT ---
Subjective-OB Subjective: Post Delivery Day: 26 year old. Denies any needs at this time. Requesting early discharge. Physical Exam (OB) Vital Signs: Temp Pulse Resp BP Pulse Ox 97.5 F 80 16 95/60 L 97 01/08/17 08:36 01/08/17 08:36 01/08/17 08:36 01/08/17 08:36 01/08/17 08:36 Intake & Output 01/07/17 01/08/17 01/09/17 06:59 06:59 06:59 Intake Total 300 120 Balance 300 120 - Lochia Lochia Amount: Scant < 10 ml Lochia Color: Rubra/Red - Abdomen Description: Tender, Soft Hernia Present: No Bowel Sounds: Normoactive Flatus Presence: Present Stool: Yes Fundal Description: Firm, Midline Fundal Height: u/u - u/2 Objective-Diagnostic Laboratory: 01/08/17 07:45 01/08/17 07:45 WBC 13.5 H RBC 2.69 L Hgb 8.0 L D Hct 24.2 L MCV 90 MCH 29.7 MCHC 32.9 RDW 14.0 Plt Count 250 Assessment and Plan(PN) - Time Spent with Patient Medications reviewed and adjusted accordingly: Yes - Disposition Anticipated Discharge: Home
--- NOTE | 2017-01-08 12:14 | PDOC DISCHARGE SUMMARY ---
Final Diagnosis Discharge Date: 01/08/17 - Final Diagnosis (1) Normal vaginal delivery Is this a current diagnosis for this admission?: Yes (2) Polyhydramnios Is this a current diagnosis for this admission?: Yes (3) Is this a current diagnosis for this admission?: Yes Discharge Data - Discharge Medication Home Medications: Vit/Iron Fumarate/FA [ Tablet] 1 each PO DAILY 11/29/16 Ferrous Sulfate [Feosol 325 mg Tablet] 325 mg PO BID #60 tablet 01/08/17 Gestational Age: 39.2 wks Reason(s) for Admission: Induction of Labor, Obstetric Complications Procedures: Ultrasound Intrapartum Procedure(s): Spontaneous Vaginal Delivery Complication(s): Episiotomy - Data Baby 1 Female at 1 minute: 9 at 5 minutes: 9 Weight: 3.714 kg Home with Mother: Yes Complications: No - Diagnosis Test Laboratory: Temp Pulse Resp BP Pulse Ox 97.5 F 80 16 95/60 L 97 01/08/17 08:36 01/08/17 08:36 01/08/17 08:36 01/08/17 08:36 01/08/17 08:36 01/05/17 01/05/17 01/08/17 18:40 19:00 07:45 RBC 3.84 2.69 L Hgb 11.4 L 8.0 L D Hct 33.9 L 24.2 L Urine Opiates Screen NEGATIVE - Discharge information/Instructions Discharge Activity: Activity As Tolerated, Balance Activity w/Rest, Pelvic Rest , Slowly Increase Activity, No tub bath Discharge Diet: Regular Disposition: HOME, SELF-CARE Follow up with: [facility] in: 4, Weeks
[2017-01-08] MEDS ORDERED: IBUPROFEN 800 MG TABLET PO PRN (17:36)
[2017-01-09 08:44] VITALS: BP 98/53
--- NOTE | 2017-01-09 10:04 | PDOC DISCHARGE SUMMARY ---
Final Diagnosis Discharge Date: 01/09/17 - Final Diagnosis (1) Acute blood loss anemia Is this a current diagnosis for this admission?: Yes (2) Normal vaginal delivery Is this a current diagnosis for this admission?: Yes Discharge Data - Discharge Medication Home Medications: Vit/Iron Fumarate/FA [ Tablet] 1 each PO DAILY 11/29/16 Ferrous Sulfate [Feosol 325 mg Tablet] 325 mg PO BID #60 tablet 01/08/17 Docusate Sodium [Colace 100 mg Capsule] 100 mg PO BID #60 capsule 01/09/17 Ibuprofen [Motrin 800 mg Tablet] 800 mg PO Q8HP PRN #60 tablet 01/09/17 Gestational Age: 39.2 Reason(s) for Admission: Induction of Labor Procedures: NST Intrapartum Procedure(s): Spontaneous Vaginal Delivery Complication(s): Episiotomy - Data Baby 1 Male at 1 minute: 9 at 5 minutes: 9 Weight: 3710 kg Home with Mother: No Complications: Yes - elevated bili - Diagnosis Test Laboratory: Temp Pulse Resp BP Pulse Ox 98.1 F 79 21 H 98/53 L 100 01/09/17 08:06 01/09/17 08:06 01/09/17 08:06 01/09/17 08:06 01/09/17 08:06 01/05/17 01/05/17 01/08/17 18:40 19:00 07:45 RBC 3.84 2.69 L Hgb 11.4 L 8.0 L D Hct 33.9 L 24.2 L Urine Opiates Screen NEGATIVE - Discharge information/Instructions Discharge Activity: Activity As Tolerated, Balance Activity w/Rest, Pelvic Rest , Slowly Increase Activity, No tub bath Discharge Diet: Regular Disposition: HOME, SELF-CARE Follow up with: [facility] in: 4, Weeks
== END 2017-01-09 11:15 | disposition home or self-care (01) | DRG 775 ==
LOC: LR 18:19 → 2S 01-07 04:53
PROVIDERS: ADMIT Obstetrics & Gynecology; ATTEND Obstetrics & Gynecology
PROC: 4A1HXCZ Monitoring of Products of Conception, Cardiac Rate, External Approach (ICD-10-PCS; 2017-01-05)
PROC: 3E0P7GC Introduction of Other Therapeutic Substance into Female Reproductive, Via Natural or Artificial Opening (ICD-10-PCS; 2017-01-06)
PROC: 10E0XZZ Delivery of Products of Conception, External Approach (ICD-10-PCS; principal; 2017-01-07)
PROC: 0W8NXZZ Division of Female Perineum, External Approach (ICD-10-PCS; 2017-01-07)
DX: O40.3XX0 Polyhydramnios, third trimester, not applicable or unspecified (principal); D62 Acute posthemorrhagic anemia; O36.63X0 Maternal care for excessive fetal growth, third trimester, not applicable or unspecified; O99.02 Anemia complicating childbirth; O99.334 Smoking (tobacco) complicating childbirth; O34.593 Maternal care for other abnormalities of gravid uterus, third trimester; F17.200 Nicotine dependence, unspecified, uncomplicated; Q51.2 Other doubling of uterus; Z3A.39 39 weeks gestation of pregnancy; Z37.0 Single live birth
CPT/HCPCS: 36415; 80307; 81005; 82803; 85025; 85027; 86592; 86850; 86870; 86900; 86901; 88307; J2210; J2370; J2590; J3010; J3490